=== PATIENT | female | born 1990 | race Caucasian/White ===

== ENCOUNTER → 2022-05-09 | Outpatient (CLI) | payer SELFPAY ==
[2022-05-13 21:07] LABS: Chlamydia By Nucleic Acid AMP Negative (Negative)
[2022-05-13 22:25] LABS: Gonococcus By Nucleic Acid AMP Negative (Negative)
[2022-05-16 15:30] LABS: HPV APTIMA, High Risk Negative (Negative)
== END | disposition home or self-care (01) ==
LOC: LABSPEC 15:26
PROVIDERS: Referring Provider Obstetrics & Gynecology; Visit Provider Obstetrics & Gynecology
DX: O09.90 Supervision of high risk pregnancy, unspecified, unspecified trimester (principal); Z3A.00 Weeks of gestation of pregnancy not specified
CPT/HCPCS: 87086; 87491; 87591; 87624; 88175; G0145

== ENCOUNTER → 2022-05-24 | Outpatient (CLI) | payer SELFPAY ==
[2022-05-24 09:46] LABS: Absolute Lymphocyte Count 1.91 X10^3/uL (0.83-4.51); Absolute Neutrophil Count 6.5 X10^3/uL (2.0-7.7); Basophil# 0.04 X10^3/uL; Basophil% 0.4 % (0-1); Eosinophil# 0.16 X10^3/uL; Eosinophils% 1.7 % (0-5); Hemoglobin 11.8 g/dL (12.0-15.0); Lymphocyte # 1.91 X10^3/ul (0.83-4.51); Lymphocyte % 20.5 % (19-41); Mean Corp Hgb Conc 33.7 g/dL (32-36); Mean Corpuscular Hgb 30.1 pg (27.0-32.0); Mean Corpuscular Volume 89.3 fL (81-99); Mean Platelet Vol. 9.8 fl (6.2-12.0); Monocyte% 7.5 % (0-10); NRBC Flagged by Analyzer 0 % (0-5); Neutrophil # 6.47 X10^3/uL (2.7-7.7); Neutrophil % 69.5 % (47-70); Platelet Count 200 K/mm3 (150-450); RBC Distribution Width CV 12.3 % (11.6-14.6); RBC Distribution Width SD 40.6 fl (35.1-43.9); Red Blood Count 3.92 M/mm3 (4.2-5.4); White Blood Count 9.3 K/mm3 (4.4-11.0)
[2022-05-24 10:30] LABS: NATERA MAILED SPECIMEN
[2022-05-24 12:35] LABS: HIV - WCH Non-Reactive (Nonreactive); Hepatitis B Surface Antigen Non-Reactive (Nonreactive); Hepatitis C Antibody Non-Reactive (Nonreactive); Rubella IgG Reactive (Nonreactive); Syphilis Antibodies Non-reactive
== END | disposition home or self-care (01) ==
PROVIDERS: Referring Provider Obstetrics & Gynecology; Visit Provider Obstetrics & Gynecology
DX: Z31.5 Encounter for procreative genetic counseling (principal); O09.90 Supervision of high risk pregnancy, unspecified, unspecified trimester; Z3A.00 Weeks of gestation of pregnancy not specified
CPT/HCPCS: 36415; 85025; 86703; 86762; 86780; 86803; 86850; 86900; 86901; 87340

== ENCOUNTER → 2022-09-27 | Outpatient (CLI) | payer SELFPAY ==
[2022-09-27 09:24] LABS: Absolute Lymphocyte Count 1.89 X10^3/uL (0.83-4.51); Absolute Neutrophil Count 9.1 X10^3/uL (2.0-7.7); Basophil# 0.05 X10^3/uL; Basophil% 0.4 % (0-1); Eosinophil# 0.17 X10^3/uL; Eosinophils% 1.4 % (0-5); Hematocrit 32.4 % (37-47); Hemoglobin 10.6 g/dL (12.0-15.0); Lymphocyte # 1.89 X10^3/ul (0.83-4.51); Lymphocyte % 15.4 % (19-41); Mean Corp Hgb Conc 32.7 g/dL (32-36); Mean Corpuscular Hgb 30.6 pg (27.0-32.0); Mean Corpuscular Volume 93.6 fL (81-99); Mean Platelet Vol. 9.5 fl (6.2-12.0); Monocyte# 0.94 X10^3/uL; Monocyte% 7.6 % (0-10); NRBC Flagged by Analyzer 0 % (0-5); Neutrophil # 9.11 X10^3/uL (2.7-7.7); Neutrophil % 74.1 % (47-70); Platelet Count 212 K/mm3 (150-450); RBC Distribution Width CV 12.4 % (11.6-14.6); RBC Distribution Width SD 42.5 fl (35.1-43.9); Red Blood Count 3.46 M/mm3 (4.2-5.4); White Blood Count 12.3 K/mm3 (4.4-11.0)
[2022-09-27 09:48] LABS: Glucose Challenge Gest 1H 50g 79 mg/dL (70-140)
[2022-09-27 10:21] LABS: HIV - WCH Non-Reactive (Nonreactive); Syphilis Antibodies Non-reactive
== END | disposition home or self-care (01) ==
LOC: PAVLAB 09:10
PROVIDERS: Registered Nurse; Visit Provider Obstetrics & Gynecology
DX: O09.90 Supervision of high risk pregnancy, unspecified, unspecified trimester (principal); Z3A.00 Weeks of gestation of pregnancy not specified; Z13.1 Encounter for screening for diabetes mellitus
CPT/HCPCS: 36415; 82950; 85025; 86703; 86780

== ENCOUNTER → 2022-10-25 | Outpatient (CLI) | payer SELFPAY ==
[2022-10-25 09:32] LABS: Absolute Lymphocyte Count 2.18 X10^3/uL (0.83-4.51); Absolute Neutrophil Count 9.2 X10^3/uL (2.0-7.7); Basophil# 0.07 X10^3/uL; Basophil% 0.5 % (0-1); Eosinophil# 0.24 X10^3/uL; Eosinophils% 1.8 % (0-5); Hematocrit 35.7 % (37-47); Hemoglobin 11.7 g/dL (12.0-15.0); Lymphocyte # 2.18 X10^3/ul (0.83-4.51); Lymphocyte % 16.7 % (19-41); Mean Corp Hgb Conc 32.8 g/dL (32-36); Mean Corpuscular Hgb 30.6 pg (27.0-32.0); Mean Corpuscular Volume 93.5 fL (81-99); Mean Platelet Vol. 9.1 fl (6.2-12.0); Monocyte# 1.14 X10^3/uL; Monocyte% 8.7 % (0-10); NRBC Flagged by Analyzer 0 % (0-5); Neutrophil # 9.23 X10^3/uL (2.7-7.7); Neutrophil % 70.8 % (47-70); Platelet Count 209 K/mm3 (150-450); RBC Distribution Width CV 12.4 % (11.6-14.6); RBC Distribution Width SD 42.2 fl (35.1-43.9); Red Blood Count 3.82 M/mm3 (4.2-5.4); White Blood Count 13.1 K/mm3 (4.4-11.0)
== END | disposition home or self-care (01) ==
LOC: PAVLAB 09:21
PROVIDERS: Referring Provider Registered Nurse; Visit Provider Registered Nurse
DX: O99.019 Anemia complicating pregnancy, unspecified trimester (principal); Z3A.00 Weeks of gestation of pregnancy not specified
CPT/HCPCS: 36415; 85025

== ENCOUNTER → 2022-11-22 | Outpatient (CLI) | payer SELFPAY | END | disposition home or self-care (01) | LOC: LABSPEC 11:54 | PROVIDERS: Referring Provider Obstetrics & Gynecology; Visit Provider Obstetrics & Gynecology | DX: O09.90 Supervision of high risk pregnancy, unspecified, unspecified trimester (principal); Z3A.00 Weeks of gestation of pregnancy not specified | CPT/HCPCS: 87081 ==

== ENCOUNTER 2022-12-14 23:05 | Outpatient (CLI) | payer SELFPAY ==
[2022-12-14 23:19] VITALS: BMI 33.1
[2022-12-15 00:18] LABS: ROM Internal Control Test YES-OK TO RESULT pt. (Internal QC); ROM Patient Test Negative (Negative); Record Kit Lot#, ROM+ K1409
--- NOTE | 2022-12-15 00:38 | NURSING ---
SAULO Garcia called regarding this triage patient. Discussed SVE. Pt ROM negative, contractions every 4 minutes, pt reports no pain and palpate mild. Plan is to discharge at this time.
--- NOTE | 2022-12-15 06:31 | OB.TRI.PN ---
Progress Notes Date of Service: 12/14/22 Progress Note: Patient presents for triage evaluation secondary to vaginal discharge FHT: 125 Moderate variability reactive no decelerations category I tracing [place]: irregular Contractions Assessment and plan: negative ROM, Reactive NST, reassuring maternal and status patient discharged to home to follow-up in office or sooner if contractions become more regular or ROM. See problem list details for additional plan information. Laboratory Studies: Laboratory Tests 12/14/22 Range/Units 23:30 Vag Amniotic Fld Detect Negative (Negative) Charges/Coding Multi Select Codes Urinary/Genital Urinary/Genital CPT Codes: 46407-09 non-stress test Interp Assessment & Plan (1) Vaginal discharge during : COMMENT: ROM neg. D/C home (2) Anemia affecting : COMMENT: started on iron supplement. repeat at 32 weeks(improved to 11.7) (3) Supervision of high risk , antepartum: COMMENT: PRR PETER 12/17/22 girl (secret name)Spouse: Edward GBS neg (4) : QUALIFIERS: Weeks of gestation: 39 weeks Qualified Code(s): Z3A.39 - 39 weeks gestation of COMMENT: GBS Negative, NIPT low risk, carrier neg. 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 FOB to be tested, nl anatomy
== END 2022-12-15 00:29 | disposition home or self-care (01) ==
LOC: WPOUT 23:07 → WP 23:08
PROVIDERS: Referring Provider Advanced Practice Midwife; Visit Provider Advanced Practice Midwife
DX: O99.891 Other specified diseases and conditions complicating pregnancy (principal); N89.8 Other specified noninflammatory disorders of vagina; O99.013 Anemia complicating pregnancy, third trimester; Z3A.39 39 weeks gestation of pregnancy
CPT/HCPCS: 59025; 59050; 84112; 99221; G0378

== ENCOUNTER 2022-12-15 05:05 | Inpatient (IN) | payer SELFPAY ==
[2022-12-15] VITALS (72 sets, daily range): BP systolic 91–161; BP diastolic 53–94; PULSE 75–169; RESP 16; TEMP 36.2–37.6; O2SAT 96–100; BMI 32.9
[2022-12-15 04:50] LABS: ROM Internal Control Test YES-OK TO RESULT pt. (Internal QC)
[2022-12-15 04:53] LABS: ROM Patient Test POSITIVE (Negative); Record Kit Lot#, ROM+ K1409
[2022-12-15 05:39] LABS: Absolute Lymphocyte Count 2.56 X10^3/uL (0.83-4.51); Absolute Neutrophil Count 9.8 X10^3/uL (2.0-7.7); Basophil# 0.05 X10^3/uL; Basophil% 0.4 % (0-1); Eosinophil# 0.13 X10^3/uL; Eosinophils% 0.9 % (0-5); Hematocrit 33.8 % (37-47); Hemoglobin 11.2 g/dL (12.0-15.0); Lymphocyte # 2.56 X10^3/ul (0.83-4.51); Lymphocyte % 18.7 % (19-41); Mean Corp Hgb Conc 33.1 g/dL (32-36); Mean Corpuscular Hgb 30.6 pg (27.0-32.0); Mean Corpuscular Volume 92.3 fL (81-99); Mean Platelet Vol. 10.2 fl (6.2-12.0); NRBC Flagged by Analyzer 0 % (0-5); Neutrophil # 9.77 X10^3/uL (2.7-7.7); Neutrophil % 71.3 % (47-70); Platelet Count 192 K/mm3 (150-450); RBC Distribution Width CV 12.3 % (11.6-14.6); RBC Distribution Width SD 42.5 fl (35.1-43.9); Red Blood Count 3.66 M/mm3 (4.2-5.4); White Blood Count 13.7 K/mm3 (4.4-11.0)
[2022-12-15 06:12] LABS: Syphilis Antibodies Non-reactive
--- NOTE | 2022-12-15 06:34 | HP.PCM.OB_ITS ---
HPI - General General Date of Admission: 12/15/22 Date of Service: 12/15/22 HPI Narrative LINDSEY MCKEON, is a 32 F 39.5 weeks who presents with SROM at 0115. Contractions becoming stronger and more regular. Maternal Data Information PETER Calculator Estimated Delivery Date Method Current WG Current Estimate 12/17/22 LMP (Certain) 39w 5d Other Estimates 12/13/22 Ultrasound #1 40w 2d Final PETER: 12/17/22 Final PETER Source: US >20 weeks Gestational age: 39.5 PFSH PFSH Home Medications prenat.vits,rodríguez,qir-itwm-ryode 1 tab PO DAILY 05/03/22 [History Last Taken 12/13/22] vitamin E 100 unit/0.25 mL oral drops unit PO .once day 12/15/22 [History Last Taken Unknown] Allergy/AdvReac Type Severity Reaction Status Date / Time No Known Allergies Allergy Verified 12/15/22 05:21 Family History Father Extra digits Mother Seizures Grandfather Cancer prostate Surgical History History of adenoidectomy Social History household members: spouse housing: house current occupational status: employed 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 current occupational exposures/hazards: No pets and animals: No history of recent travel: No sexually active: Yes Smoking Status: Former smoker alcohol intake: never substance use type: does not use well-balanced diet: daily or most days caffeine: No eating out: rarely or never seatbelt use: always do you feel safe at home: Yes additional social history: Spouse: Edward History 1 Elective abortions Hx Para 0 Spontaneous abortions Hx # Term Pregnancies Ectopic pregnancies Hx # Pregnancies Multiple births # of living children Visit Details Expected Delivery Route/Plan delivery by 41 weeks Labor Preferences- CB/BF classes: Discussed and did labor support person: Edward labor intervention preferences: min interventions hydrotherapy, open to touch and massage, guided breathing pain management options preferred: prefers no epidural but open if medically necessary cut cord/dad catch: yes cord only : Yes PP control planned: [] discussed possible routes of delivery and associated risks: [] special requests: [] Plans Covid status: declines Flu vaccine: declines Tdap vaccine: declines Rhogam: NA LARC form signed: completed movement and labor precautions reviewed. Problem list reviewed and updated with the most current plan of care details and appropriate orders placed. Relevant counseling for the gestational age provided. Continue routine care and follow up unless otherwise noted in visit notes/problem list details OB Flowsheet Initial Weight: Not Recorded Date -?-?-?-?-?-?-?-?-?-?-?-?- EGA Weight BP Urine Prot -?-?-?-?-?-?-?-?-?-?-?-?- Glucose FHR FuHt Pres Dilation -?-?-?-?-?-?-?-?-?-?-?-?- Effaced St Visit Note 05/09/22 -?-?-?-?-?-?-?-?-?-?-?-?- 8w 2d 147 lb 4 oz 108/60 -?-?-?-?-?-?-?-?-?-?-?-?- 180 -?-?-?-?-?-?-?-?-?-?-?-?- JV- single live IUP measuring 8 weeks 6 days and consistent with LMP. Pt desires NIPT and carrier test. she is ex-jehovah's witness and worried about genetic pro blems. 06/07/22 -?-?-?-?-?-?-?-?-?-?-?-?- 12w 3d 150 lb 8 oz 94/55 Nega tive -?-?-?-?-?-?-?-?-?-?-?-?- Negative 175 -?-?-?-?-?-?-?-?-?-?-?-?- KW- Denies cramp ing. 07/05/22 -?-?-?-?-?-?-?-?-?-?-?-?- 16w 3d 158 lb 96/63 Negative -?-?-?-?-?-?-?-?-?-?-?-?- Negative 157 -?-?-?-?-?-?-?-?-?-?-?-?- JV- no lof, vagi nal bleeding, or cramping. Still working out but scaling back on weight.s anatomy us scheduled for 07/2508/02/22 -?-?-?-?-?-?-?-?-?-?--?-?- 20w 3d 159 lb 6 oz 100/59 Nega tive -?-?-?-?-?-?-?-?-?-?-?-?- Negative 149 -?-?-?-?-?-?-?-?-?-?-?-?- JV- + fm. no scratch brusher mping or spotting. normal anatomy scan. 08/30/22 -?-?-?-?-?-?-?-?-?-?-?-?- 24w 3d 164 lb 6 oz 103/59 Nega tive -?-?-?-?-?-?-?-?-?-?-?-?- Negative 140 24 -?-?-?-?-?-?-?-?-?-?-?-?- LC- no lof/vb/ct x. good fm. 28 week labs ordered. 09/27/22 -?-?-?-?-?-?-?-?-?-?-?-?- 28w 3d 170 lb 4 oz 96/68 Nega tive -?-?-?-?-?-?-?-?-?-?-?-?- Negative 138 28 -?-?-?-?-?-?-?-?-?-?-?-?- LC-no lof/ctx/vb . good fm. larc signed. declines tdap. 10/11/22 -?-?-?-?-?-?-?-?-?-?-?-?- 30w 3d 172 lb 108/61 Negative -?-?-?-?-?-?-?-?-?-?-?-?- Negative 140 30 Cephalic -?-?-?-?-?-?-?-?-?-?-?-?- SM- no vb lof go od fm no regular ctx 10/25/22 -?-?-?-?-?-?-?-?-?-?-?-?- 32w 3d 173 lb 105/67 Negative -?-?-?-?-?-?-?-?-?-?-?-?- Negative 134 32 -?-?-?-?-?-?-?-?-?-?--?-?- LC- no vb/ctx/vb . good fm. obtaining cbc today, on iron supplementation. signing up for CBE classes. 11/08/22 -?-?-?-?-?-?-?-?-?-?-?-?- 34w 3d 176 lb 108/64 Negative -?-?-?-?-?-?-?-?-?-?-?-?- Negative 138 34 -?-?-?-?-?-?-?-?-?-?-?-?- LC- no vb/ctx/lo f. good fm. labor precautions reviewed. 11/22/22 -?-?-?-?-?-?-?-?-?-?-?-?- 36w 3d 178 lb 6 oz 102/62 Nega tive -?-?-?-?-?-?-?-?-?-?-?-?- Negative 140 36 Cephalic 1 -?-?-?-?-?-?-?-?-?-?-?-?- 50 -3 JV- no lof , vaginal bleeding, or dec fm. gbs collected. labor precautions discussed. 11/29/22 -?-?-?-?-?-?-?-?-?-?-?-?- 37w 3d 182 lb 6 oz 102/62 Nega tive -?-?-?-?-?-?-?-?-?-?-?-?- Negative 135 36 Cephalic -?-?-?-?-?-?-?-?-?-?-?-?- SM- no vb lof go od fm no regular ctx discussed preferences 12/06/22 -?-?-?-?-?-?-?-?-?-?-?-?- 38w 3d 184 lb 2 oz 100/62 Nega tive -?-?-?-?-?-?-?-?-?-?-?-?- Negative 140 38 Cephalic 2 -?-?-?-?-?-?-?-?-?-?-?-?- 60 -2 kw-no vb/l of/regular ctx. good fm. labor precautions. 12/12/22 -?-?-?-?-?-?-?-?-?-?-?-?- 39w 2d 186 lb 4 oz 90/62 Nega tive -?-?-?-?-?-?-?-?-?-?-?-?- Negative 125 39 Cephalic 1 .5 -?-?-?-?-?-?-?-?-?-?-?-?- 70 -1 Sm- no vb lof good fm n oregular ctx NST FHR Rate Baby B Baseline: 145 Variability:: Moderate Accelerations:: 15 x 15 Decelerations:: None NST Reactive:: Yes FHR Category:: Category I Uterine Activity:: 4-6 minutes ROS Constitutional Constitutional: Denies change in weight, fatigue, fever(s), headache(s), poor appetite or weakness Eyes Eyes: Denies blurry vision, change in vision, floaters, seeing flashes or spots in vision ENT HEENT: Denies dizziness, headache(s), loss taste/smell or sore throat Cardiovascular Cardiovascular: Denies chest pain, dizziness, dyspnea, irregular heart rhythm, lightheadedness, palpitations or rapid heart rate Respiratory/Chest Respiratory/Chest: Denies change in mental status, chest tightness, cough, dyspnea or breast pain Gastrointestinal Gastrointestinal: Denies anorexia, chewing difficulty, constipation, diarrhea or weight changes Genitourinary Genitourinary: Denies difficulty urinating, dysuria, flank pain, genital pain, urinary frequency or urinary urgency Musculoskeletal Musculoskeletal: Denies back pain, difficulty walking, extremity pain, joint pain, muscle cramps or muscle weakness Integumentary Integumentary: Denies lesions or unusual bruising Neurologic Neurologic: Denies abnormal movements, abnormal speech, dizziness, numbness, seizure-like activity, syncope or weakness Psychiatric Psychiatric: Denies behavioral changes, change in appetite, confusion, depression, homicidal ideation, suicidal ideation or suicidal thoughts Endocrine Endocrinology: Denies excessive sweating, polydipsia or polyuria Hematologic/Lymphatic Hematologic/Lymphatic: Denies anemia Allergic/Immunologic Allergic/Immunologic: Denies itchy eyes, lip swelling, throat swelling, tongue swelling or wheezing Vital Signs Vital Signs Vital Signs: 12/15/22 04:31 12/15/22 04:31 12/15/22 06:15 Temperature 97.1 F L Temperature Source Temporal Pulse Rate Blood Pressure 113/68 BP Systolic 113 BP Diastolic 68 Pulse Ox 12/15/22 06:15 12/15/22 06:15 12/15/22 06:15 Temperature 98.2 F Temperature Source Pulse Rate 93 Blood Pressure BP Systolic BP Diastolic Pulse Ox 100 Weight Weight: 186 lb Body Mass Index (BMI) 32.9 Physical Exam Const alert, oriented x3 and no apparent distress General Appearance: cooperative Orientation / Consciousness: awake HEENT normocephalic Neck full ROM Lymph Lymphatic: no lymphadenopathy noted Chest inspection of chest normal Resp normal respiratory effort and normal air movement Effort and Inspection: able to speak in complete sentences and symmetric chest movement GI soft to palpation and non-tender Inspection: gravid Palpation: soft; Negative for tender external exam normal Manual OB Exam: estimated gestational size appropriate and presentation cephalic Back/Spine normal to inspection Extremity normal to inspection and full ROM Skin no rashes or lesions noted Psych mental status grossly normal Appearance: grossly normal Speech: normal speech Labs Labs Labs: Blood Type A POSITIVE Antibody Screen NEGATIVE Hct 33.8 % (37-47) L Hgb 11.2 g/dL (12.0-15.0) L Syphilis Total Ab Non-reactive Rubella IgG Antibody Reactive (Nonreactive) Hep Bs Antigen Non-Reactive (Nonreactive) Hepatitis C Antibody Non-Reactive (Nonreactive) Chlamydia DNA ([place]) Negative (Negative) N.gonorrhoeae DNA ([place]) Negative (Negative) HIV 1&2 Antibody Non-Reactive (Nonreactive) Glucose 1 Hr 50 gm 79 mg/dL (70-140) Assessment & Plan (1) Rupture of membranes with clear amniotic fluid: PLAN: Patient presents IAL, plan expectant management for , pitocin/AROM PRN if needed. Pain management: plans no epidural. GBS negative. Management of any complications: none I have reviewed the [facility] and made any clinically relevant updates. (2) Anemia affecting : COMMENT: started on iron supplement. repeat at 32 weeks(improved to 11.7) (3) Supervision of high risk , antepartum: COMMENT: PRR PETER 12/17/22 girl (secret name)Spouse: Edward GBS neg (4) : QUALIFIERS: Weeks of gestation: 39 weeks Qualified Code(s): Z3A.39 - 39 weeks gestation of COMMENT: GBS Negative, NIPT low risk, carrier neg. 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 FOB to be tested, nl anatomy Charges/Coding Multi Select Codes Urinary/Genital Urinary/Genital CPT Codes: No Charge
--- NOTE | 2022-12-15 09:09 | PCM.PN.BLA ---
Progress Note coping well with contractions current tracing: FHT: 150 Moderate variability reactive no decelerations category I tracing [place]: 2-3 minute Contractions Membranes: ruptured at 115, forebag ruptured at 0900 for clear fluid SVE: /- reviewed tracing abnormalities since last note: A/P: Continue with position changes Pitocin per protocol if needed Anticipate Dr Beltre aware of plan and agrees with plan of care Assessment & Plan Assessment/Plan (1) Active labor at term: (2) Rupture of membranes with clear amniotic fluid: (3) Anemia affecting : (4) Supervision of high risk , antepartum: (5) : QUALIFIERS: Weeks of gestation: 39 weeks Qualified Code(s): Z3A.39 - 39 weeks gestation of Multi Select Codes Urinary/Genital Urinary/Genital CPT Codes: No Charge
[2022-12-15] MEDS: LACTATED RINGERS 500 ML 999 ML IV ×2 (09:42→16:39)
[2022-12-15] MEDS: Lactated Ringers 1,000 ML 200 ML IV ×2 (10:10→14:54)
[2022-12-15] MEDS: fentaNYL-bupivacaine (epidural) 100 ML BAG EPIDURAL ×2 (10:30→14:14)
--- NOTE | 2022-12-15 12:08 | PCM.PN.BLA ---
Progress Note comfortable with epidural current tracing: FHT: 145 Moderate variability reactive no decelerations category I tracing [place]: 3-4 minutes Contractions Membranes: ruptured-see previous note SVE: reviewed tracing abnormalities since last note: A/P: Continue with position changes Re check SVE exam in 2 hours and if no change start pitocin Titrate pitocin per protocol Epidural per anesthesia Anticipate Dr Beltre aware of plan and agrees with plan of care Assessment & Plan Assessment/Plan (1) Active labor at term: (2) Rupture of membranes with clear amniotic fluid: (3) Anemia affecting : (4) Supervision of high risk , antepartum: (5) : QUALIFIERS: Weeks of gestation: 39 weeks Qualified Code(s): Z3A.39 - 39 weeks gestation of Multi Select Codes Urinary/Genital Urinary/Genital CPT Codes: No Charge
[2022-12-15] MEDS: Oxytocin 15 Units/NS 250ml 15 UNITS/250 ML IV.SOLN 2 UNITS IV (14:42)
--- NOTE | 2022-12-15 14:47 | PN_ITS ---
Progress Note comfortable with epidural current tracing: FHT: 130 Moderate variability reactive no decelerations category I tracing [place]: 2-5 Contractions Membranes: ruptured SVE: 9/95/0 A/P: Continue with position changes Start and Titrate pitocin per protocol Epidural per anesthesia Anticipate Dr Beltre aware of plan and agrees with plan of care Assessment & Plan Assessment/Plan (1) Active labor at term: (2) Rupture of membranes with clear amniotic fluid: (3) Anemia affecting : (4) Supervision of high risk , antepartum: (5) : QUALIFIERS: Weeks of gestation: 39 weeks Qualified Code(s): Z3A.39 - 39 weeks gestation of Multi Select Codes Urinary/Genital Urinary/Genital CPT Codes: No Charge
--- NOTE | 2022-12-15 17:59 | PLAC_PTH ---
PATIENT: LINDSEY MCKEON LOC: [facility] U#:[id number] AGE/SX: 32/F ROOM: WP021 RE12/15/[address]: Dr. Allison Ross DO : 1990 BED: 1 DIS: 12/17/2022 SPEC #: [id number] RECD: 12/15/22 20:24 STATUS: AMAYA HAILY #: [id number] BILL: 12/15/22 17:[address]: Allison Ross DEPT: SURGICAL PATHOLOGY RECD BY: Edwige Rosas ENTERED: 12/16/22 07:31 SP TYPE: PLACENTA OTHR DR: No Primary Care Phys Tissues: Placenta, NOS Procedures: Surgery Specimen Level V HEADER OPERATION: Vaginal delivery PRE-OP DIAGNOSIS: Suspected chorioamnionitis TISSUE SUBMITTED: Placenta MICROSCOPIC DIAGNOSIS Placenta: Placental disc - third trimester placenta (515 gm). Membranes - moderate acute chorioamnionitis. Umbilical cord - three blood vessels and no pathologic diagnosis. SJ:lucie 12/18/2022 MICROSCOPIC DESCRIPTION Slides are reviewed. GROSS DESCRIPTION SPECIMEN: PLACENTA / CLINICAL INFORMATION: A. Weight: 3.42 kg B. Gestational Age: 39 weeks C. Sex: Female PLACENTAL WEIGHT (POST FIXATION): 515 gm PLACENTAL DIMENSIONS: 20.0 x 16.0 x 3.0 cm PLACENTAL SHAPE: Usual ovoid PLACENTAL WEIGHT FOR GESTATIONAL AGE: Within 10-99th percentile MEMBRANES - Present A. Insertion: Marginal B. Site of rupture from edge: At margin of placental disc C. Color of membrane: Ramires, mucoidy D. Abnormalities: A detached fragment of membrane is also present in the container. A few blood clots are also note din the membranes. UMBILICAL CORD - Present A. Color: Ramires-soriano B. Insertion: Central C. Length: 31.0 cm D. Diameter: 1.1 cm. The umbilical cord is focally edematous towards the end and measures up to 1.6 cm in diameter. E. Number of vessels: Three F. Abnormalities: None PLACENTAL DISC - Present A. Color of surface: Ramires-soriano B. surface abnormalities: None C. Maternal cotyledons: Intact with minimal tears D. Attached retro placental clot: No clot E. Cut surface: Dark red and spongy F. Lesions: None G. Separate clot: Multiple blood clots are noted weighing 38 gm and measuring in aggregate 8.0 x 7.0 x 2.5 cm. SECTIONS SUBMITTED: 1. Membrane roll 2. Cord, maternal end 3. Cord, end 4. Placental disc, and maternal surfaces 5. Placental disc, and maternal surfaces 6. Placental disc, and maternal surfaces BRAN:lucie 12/17/2022 TC:2 CPT: 53149
--- NOTE | 2022-12-15 18:19 | PCM.PN.OB ---
Objective Data Objective Data Vital Signs: Vital Signs Temp Pulse BP Pulse Ox 99.7 F H 88 104/55 L 98 12/15/22 17:27 12/15/22 17:28 12/15/22 17:28 12/15/22 16:35 Weight: 186 lb Body Mass Index (BMI) 32.9 Intake & Output: Intake and Output for Last 24 Hours 12/13/22 12/14/22 12/15/22 23:59 23:59 23:59 Intake Total 2292.83 / 2292.83 Output Total 600 / 600 Balance 1692.83 / 1692.83 Lab / Micro Data 12/15/22 05:20 Labs: Laboratory Results - last 24 hr 12/15/22 04:28: Vag Amniotic Fld Detect POSITIVE H 12/15/22 05:20: WBC 13.7 H, RBC 3.66 L, Hgb 11.2 L, Hct 33.8 L, MCV 92.3, MCH 30.6, MCHC 33.1, RDW Std Deviation 42.5, RDW Coeff of Pedro 12.3, Plt Count 192, MPV 10.2, Immature Gran % (Auto) 0.700, Neut % (Auto) 71.3 H, Lymph % (Auto) 18.7 L, [place] % (Auto) 8.0, Eos % (Auto) 0.9, Baso % (Auto) 0.4, Absolute Neuts (auto) 9.8 H, Absolute Lymphs (auto) 2.56, Nucleated RBC % 0, Syphilis Total Ab Non-reactive, Blood Type A POSITIVE, Antibody Screen NEGATIVE
--- NOTE | 2022-12-15 18:20 | PCM.PN.BLA ---
Progress Note comfortable with epidural current tracing: FHT: Moderate variability reactive no decelerations category I tracing [place]: [] Contractions Membranes: SVE:10/100/+2- pushing at 1617 reviewed tracing abnormalities since last note: at 1655 variables after pushing and 1717 dr Beltre noted of decels, pitocin turned off and O2 on. She is on her way hospital to assess for kiwi delivery A/P: Continue with position changes Titrate pitocin per protocol Epidural per anesthesia Anticipate Dr Beltre aware of plan and agrees with plan of care Assessment & Plan Assessment/Plan (1) Active labor at term: (2) Rupture of membranes with clear amniotic fluid: (3) Anemia affecting : (4) Supervision of high risk , antepartum: (5) : QUALIFIERS: Weeks of gestation: 39 weeks Qualified Code(s): Z3A.39 - 39 weeks gestation of Multi Select Codes Urinary/Genital Urinary/Genital CPT Codes: No Charge
--- NOTE | 2022-12-15 18:27 | EX.PCM.OBRPT ---
Assessment & Plan (1) Active labor at term: (2) Rupture of membranes with clear amniotic fluid: (3) Anemia affecting : COMMENT: started on iron supplement. repeat at 32 weeks(improved to 11.7) (4) Supervision of high risk , antepartum: COMMENT: PRR PETER 12/17/22 girl (secret name)Spouse: Edward GBS neg (5) : QUALIFIERS: Weeks of gestation: 39 weeks Qualified Code(s): Z3A.39 - 39 weeks gestation of COMMENT: GBS Negative, NIPT low risk, carrier neg. 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 FOB to be tested, nl anatomy Maternal Data Information PETER Calculator Estimated Delivery Date Method Current WG Current Estimate 12/17/22 LMP (Certain) 39w 5d Other Estimates 12/13/22 Ultrasound #1 40w 2d Final PETER: 12/17/22 Final PETER Source: LMP Vaginal Delivery Maternal Presentation Maternal Presentation: Active Labor Type of Induction: Pitocin Operative Information Date of Procedure: 12/15/22 Pre-Operative Diagnosis: 32 y/o @ 39 weeks 6 days, active labor with SROM, protracted labor, tachycardia, variable decelerations with minimal variability Post-Operative Diagnosis: 32 y/o @ 39 weeks 6 days, active labor with SROM, protracted labor, tachycardia, variable decelerations with minimal variability Surgery / Procedure Performed: Vacuum Assisted Vaginal Delivery Type of Anesthesia: Epidural Drain: Parsons to straight drain Estimated Blood Loss: 200cc Findings Description of Procedure: Findings: Viable female infant, scores 8/9 . Weight pending Details of delivery: This is a 32 y/o year old woman who was admitted to labor and delivery for active labor and stalled out at 6 cm for 7 hours until she made change to 7 cm. An epidural was given at that time and progressed to complete 3 hours later. She began pushing and after 30 minutes the heart rate showed tachycardia with minimal variability and persistent deep variable decelerations. Pitocin was stopped, she was given an IV fluid bolus and oxygen. The variable decelerations resolved, however the tachycardia remained the in the 170's, and maternal heart rate and temp were noted to be increasing. (temp 99.7) . The decision was made to perform a vacuum extraction due to persistent tachycardia and poor pushing effort. The risk benefits and alternatives of the procedure were discussed with the patient and verbal consent was obtained. The infant was noted to be at a +2 station, the cervix was completely dilated. The 's head was noted to be in the right occiput anterior presentation. The vacuum was placed in the correct placement in front of the posterior fontanelle. This was confirmed digitally. With the patient's next contraction, the vacuum was inflated and a gentle downward pressure was used to assist with bringing the baby's head to a +3 station. 5 pulls total were needed along with a right mediolateral episiotomy to achieve delivery. There were 2 pop offs on the 3rd and 4th pulls . The head was delivered atraumatically. No nuchal cord was noted. . The anterior shoulder followed by the posterior shoulder were delivered without difficulty. The infant was handed off to the patient's chest. The was found to be vigorous and crying and moving of all 4 extremities. The mouth and nares were bulb suctioned. After 60 second delay the cord was clamped and cut and the infant was handed off to the awaiting nurses for routine assessment. The placenta was delivered with gentle traction and uterine massage. Inspection of the vagina cervix and perineum was performed. There were no lacerations to the vagina or to the cervix. The peritoneum was found to have a 2nd degree perineal laceration. The perineal laceration was closed using a 2-0 Vicryl in the usual sterile fashion. The patient tolerated the procedure well sponge lap and needle counts were correct x2 and she is now recovering in stable condition. Presentation: Vertex Amniotic Fluid Description: Clear Placental Delivery Description: Spontaneous Placenta Disposition: Routine to Lab Specimen(s) Removed: placenta - sent for culture Cord Vessel Description: 3 Vessels Cord Entanglement: None Cord Gases: ABG and VBG A Gender: Female (1 minute): 8 (5 minute): 9 Delayed Cord Clamping: Yes Post Vaginal Delivery Medications Given After Delivery: IV Pitocin Episiotomy Description: Right Mediolateral Laceration: 2nd degree Complication Complications: None Multi Select Codes Urinary/Genital Urinary/Genital CPT Codes: 17039 Vaginal Delivery [facility]
[2022-12-15] MEDS: Oxytocin 15 Units/NS 250ml 15 UNITS/250 ML IV.SOLN 83 UNITS IV (18:37)
--- NOTE | 2022-12-15 18:42 | DCINST_ITS ---
Discharge Instructions Diet Discharge Diet: No restrictions Activity Discharge Activity: Return to Normal Activity, May Not Drive (while taking narcotic pain medications.) and May Shower May resume sexual activity in: 4-6 weeks Dressing / Incision Call your doctor if your incision/area has: Continuous Slow Oozing, Sudden Increased Bleeding, Increased Pain/ Swelling, Increased Redness and Foul Smelling Discharge Follow Up Care Please Follow Up With: Allison Ross, DO When: Call [phone] to make an appointment with your doctor in 6 weeks. If you had elevated blood pressure or 4th degree laceration, you will need to be seen in 2 weeks. Test Results: Test results from this visit will be discussed in further detail at your follow- up appointment, if applicable. Discharge Plan Admission Admit Date/Time: 12/15/22 05:05 Attending Provider: Allison Ross Primary Care Provider: Sarwat Brooks,Kathy Primary Discharge Orders/Prescriptions Prescriptions: No Action prenat.vits,rodríguez,mcs-umqt-efpgi Tablet 1 tab PO DAILY vitamin E 100 unit/0.25 mL drops PO .once day Referrals / Follow Up: Care Physician,No Primary [Primary Care Provider] -
[2022-12-15] MEDS: Cefazolin 2 GM in 0.9% Normal Saline (100mL Bag) 100 ML IV (19:04)
[2022-12-15 20:17] LABS: Absolute Lymphocyte Count 1.07 X10^3/uL (0.83-4.51); Absolute Neutrophil Count 19.5 X10^3/uL (2.0-7.7); Basophil# 0.04 X10^3/uL; Basophil% 0.2 % (0-1); Hematocrit 31.6 % (37-47); Hemoglobin 10.4 g/dL (12.0-15.0); Lymphocyte # 1.07 X10^3/ul (0.83-4.51); Lymphocyte % 4.8 % (19-41); Mean Corp Hgb Conc 32.9 g/dL (32-36); Mean Corpuscular Hgb 30.5 pg (27.0-32.0); Mean Corpuscular Volume 92.7 fL (81-99); Mean Platelet Vol. 10.8 fl (6.2-12.0); Monocyte# 1.51 X10^3/uL; Monocyte% 6.8 % (0-10); NRBC Flagged by Analyzer 0 % (0-5); Neutrophil # 19.49 X10^3/uL (2.7-7.7); Neutrophil % 87.3 % (47-70); POSITIVE DIFFERENTIAL YES; Platelet Count 152 K/mm3 (150-450); RBC Distribution Width CV 12.5 % (11.6-14.6); RBC Distribution Width SD 42.4 fl (35.1-43.9); Red Blood Count 3.41 M/mm3 (4.2-5.4); White Blood Count 22.3 K/mm3 (4.4-11.0)
[2022-12-15 20:36] LABS: Differential Indicated SCAN CRITERIA MET
[2022-12-15 20:37] LABS: Differential Comment SCANNED
[2022-12-15] MEDS: Ibuprofen 600 MG Tablet PO (23:24)
[2022-12-15] MEDS: Senna/Docusate Sodium 1 Tablet PO (23:25)
[2022-12-16] VITALS (11 sets, daily range): BP systolic 98–109; BP diastolic 55–65; PULSE 74–86; RESP 16–18; TEMP 36.4–36.9; O2SAT 97–100
[2022-12-16 03:37] LABS: Pathology Specimen OB SEE PATHOLOGY REPORT
[2022-12-16 05:37] LABS: Absolute Lymphocyte Count 2.74 X10^3/uL (0.83-4.51); Absolute Neutrophil Count 22.8 X10^3/uL (2.0-7.7); Basophil# 0.07 X10^3/uL; Basophil% 0.3 % (0-1); Eosinophil# 0.02 X10^3/uL; Eosinophils% 0.1 % (0-5); Hematocrit 32.4 % (37-47); Hemoglobin 10.6 g/dL (12.0-15.0); Lymphocyte # 2.74 X10^3/ul (0.83-4.51); Lymphocyte % 9.8 % (19-41); Mean Corp Hgb Conc 32.7 g/dL (32-36); Mean Corpuscular Hgb 30.5 pg (27.0-32.0); Mean Corpuscular Volume 93.4 fL (81-99); Mean Platelet Vol. 10.3 fl (6.2-12.0); Monocyte# 2.02 X10^3/uL; Monocyte% 7.3 % (0-10); NRBC Flagged by Analyzer 0 % (0-5); Neutrophil # 22.78 X10^3/uL (2.7-7.7); Neutrophil % 81.7 % (47-70); POSITIVE DIFFERENTIAL YES; Platelet Count 160 K/mm3 (150-450); RBC Distribution Width CV 12.8 % (11.6-14.6); RBC Distribution Width SD 43.2 fl (35.1-43.9); Red Blood Count 3.47 M/mm3 (4.2-5.4); White Blood Count 27.9 K/mm3 (4.4-11.0)
[2022-12-16 05:38] LABS: Differential Indicated SCAN CRITERIA MET
[2022-12-16] MEDS: Ibuprofen 600 MG Tablet PO ×2 (06:39→13:52)
--- NOTE | 2022-12-16 08:58 | PCM.PN.OB ---
Subjective Subjective Patient doing well without complaints. Tolerating PO. Ambulating and voiding without difficulty. Feeding well. Denies chest pain, shortness of breath, calf pain/swelling, fevers, chills, lightheadedness. Objective Data Objective Data Vital Signs: Vital Signs Temp Pulse Resp BP Pulse Ox O2 Del Method 98.1 F 85 16 106/58 L 97 Room Air 12/16/22 08:03 12/16/22 08:03 12/16/22 08:03 12/16/22 08:03 12/16/22 04:15 12/16/22 08:03 Oxygen Delivery Method Room Air Weight: 186 lb Body Mass Index (BMI) 32.9 Intake & Output: Intake and Output for Last 24 Hours 12/14/22 12/15/22 12/16/22 23:59 23:59 23:59 Intake Total 3002.93 / 3002.93 Output Total 1450 / 1450 500 / 500 Balance 1552.93 / 1552.93 -500 / -500 Lab / Micro Data 12/16/22 05:26 Labs: Laboratory Results - last 24 hr 12/15/22 19:00: WBC 22.3 H, RBC 3.41 L, Hgb 10.4 L, Hct 31.6 L, MCV 92.7, MCH 30.5, MCHC 32.9, RDW Std Deviation 42.4, RDW Coeff of Pedro 12.5, Plt Count 152, MPV 10.8, Immature Gran % (Auto) 0.900, Neut % (Auto) 87.3 H, Lymph % (Auto) 4.8 L, [place] % (Auto) 6.8, Eos % (Auto) 0.0, Baso % (Auto) 0.2, Absolute Neuts (auto) 19.5 H, Absolute Lymphs (auto) 1.07, Nucleated RBC % 0, Differential Comment SCANNED, Diff Path Review July12/16/22 05:26: WBC 27.9 H, RBC 3.47 L, Hgb 10.6 L, Hct 32.4 L, MCV 93.4, MCH 30.5, MCHC 32.7, RDW Std Deviation 43.2, RDW Coeff of Pedro 12.8, Plt Count 160, MPV 10.3, Immature Gran % (Auto) 0.800, Neut % (Auto) 81.7 H, Lymph % (Auto) 9.8 L, Randolph % (Auto) 7.3, Eos % (Auto) 0.1, Baso % (Auto) 0.3, Absolute Neuts (auto) 22.8 H, Absolute Lymphs (auto) 2.74, Nucleated RBC % 0, Diff Path Review July Physical Exam Const alert and no apparent distress Neck full ROM Chest inspection of chest normal Nipple/Areola: nipples/areola normal Resp normal respiratory effort Cardio regular rate and regular rhythm GI normal to inspection, nondistended, normoactive bowel sounds Bimanual Exam - Vag & Uterus: Negative for uterus tender Uterus Palpation: uterus fundus firm Extremity normal to inspection and no calf tenderness Extremity Narrative: trace edema Skin no rashes or lesions noted Psych mental status grossly normal Assessment & Plan (1) Vacuum extractor delivery, delivered: COMMENT: JV tachycardia. Felicitas. PLAN: s/p PPD # 1 1. routine post delivery care 2. breast feeding- support given 3. rh positive 4. rubella immune (2) Maternal fever during labor: COMMENT: Triple I ancef q8 hours repeat cbc 12/17 PLAN: updated on exam and labs, plan to restart ancef x24 hours and repeat cbc in AM.
[2022-12-16] MEDS: Cefazolin 1 GM/50 ML BAG IV ×2 (10:26→16:31)
[2022-12-16] MEDS: 0.9% Saline Lock 10 ML Syringe IV (16:32)
[2022-12-16] MEDS: Acetaminophen 500 MG Tablet 1000 MG PO (20:12)
[2022-12-17] MEDS: Ibuprofen 600 MG Tablet PO (01:35)
[2022-12-17] MEDS: Cefazolin 1 GM/50 ML BAG IV ×2 (01:35→09:46)
[2022-12-17] MEDS: 0.9% Saline Lock 10 ML Syringe IV ×2 (01:39→09:47)
[2022-12-17 01:50] VITALS: BP 97/63; PULSE 74; RESP 16; TEMP 36.3
[2022-12-17 05:26] LABS: Absolute Lymphocyte Count 2.49 X10^3/uL (0.83-4.51); Absolute Neutrophil Count 11.1 X10^3/uL (2.0-7.7); Basophil# 0.07 X10^3/uL; Basophil% 0.5 % (0-1); Eosinophil# 0.27 X10^3/uL; Eosinophils% 1.8 % (0-5); Hematocrit 26.9 % (37-47); Hemoglobin 8.8 g/dL (12.0-15.0); Lymphocyte # 2.49 X10^3/ul (0.83-4.51); Lymphocyte % 16.5 % (19-41); Mean Corp Hgb Conc 32.7 g/dL (32-36); Mean Corpuscular Hgb 30.6 pg (27.0-32.0); Mean Corpuscular Volume 93.4 fL (81-99); Monocyte# 1.07 X10^3/uL; Monocyte% 7.1 % (0-10); NRBC Flagged by Analyzer 0 % (0-5); Neutrophil # 11.07 X10^3/uL (2.7-7.7); Neutrophil % 73.3 % (47-70); Platelet Count 150 K/mm3 (150-450); RBC Distribution Width CV 12.9 % (11.6-14.6); RBC Distribution Width SD 44.2 fl (35.1-43.9); Red Blood Count 2.88 M/mm3 (4.2-5.4); White Blood Count 15.1 K/mm3 (4.4-11.0)
--- NOTE | 2022-12-17 07:36 | PCM.PN.OB ---
Subjective Subjective Patient doing well without complaints. Tolerating PO. Ambulating and voiding without difficulty. Feeding well. Denies chest pain, shortness of breath, calf pain/swelling, fevers, chills, lightheadedness. Objective Data Objective Data Vital Signs: Vital Signs Temp Pulse Resp BP Pulse Ox O2 Del Method 97.3 F L 74 16 97/63 100 Room Air 12/17/22 01:50 12/17/22 01:50 12/17/22 01:50 12/17/22 01:50 12/16/22 13:39 12/16/22 20:20 Oxygen Delivery Method Room Air Weight: 186 lb Body Mass Index (BMI) 32.9 Intake & Output: Intake and Output for Last 24 Hours 12/15/22 12/16/22 12/17/22 23:59 23:59 23:59 Intake Total 3002.93 / 3002.93 100 / 100 Output Total 1450 / 1450 500 / 500 Balance 1552.93 / 1552.93 -400 / -400 Lab / Micro Data Attestation: I reviewed the patient's lab results. 12/17/22 05:13 Labs: Laboratory Results - last 24 hr 12/17/22 05:13: WBC 15.1 H, RBC 2.88 L, Hgb 8.8 L, Hct 26.9 L, MCV 93.4, MCH 30.6, MCHC 32.7, RDW Std Deviation 44.2 H, RDW Coeff of Pedro 12.9, Plt Count 150, MPV 10.0, Immature Gran % (Auto) 0.800, Neut % (Auto) 73.3 H, Lymph % (Auto) 16.5 L, [place] % (Auto) 7.1, Eos % (Auto) 1.8, Baso % (Auto) 0.5, Absolute Neuts (auto) 11.1 H, Absolute Lymphs (auto) 2.49, Nucleated RBC % 0 ROS Constitutional Constitutional: Reports systems reviewed and no addt'l complaints, except as documented; Denies anorexia or headache(s) Cardiovascular Cardiovascular: Reports systems reviewed and no addt'l complaints, except as documented; Denies dizziness, dyspnea, nausea or tachypnea Respiratory/Chest Respiratory/Chest: Reports systems reviewed and no addt'l complaints, except as documented; Denies cough, dyspnea, shortness of breath at rest or tachypnea Gastrointestinal Gastrointestinal: Reports systems reviewed and no addt'l complaints, except as documented; Denies abdominal pain, constipation or nausea Genitourinary Genitourinary: Reports systems reviewed and no addt'l complaints, except as documented; Denies burning urination, difficulty urinating, dysuria, urinary frequency or urinary incontinence Musculoskeletal Musculoskeletal: Reports systems reviewed and no addt'l complaints, except as documented Integumentary Integumentary: Reports systems reviewed and no addt'l complaints, except as documented Neurologic Neurologic: Reports systems reviewed and no addt'l complaints, except as documented; Denies abnormal speech, dizziness or headache(s) Psychiatric Psychiatric: Reports systems reviewed and no addt'l complaints, except as documented Endocrine Endocrinology: Reports systems reviewed and no addt'l complaints, except as documented Hematologic/Lymphatic Hematologic/Lymphatic: Reports systems reviewed and no addt'l complaints, except as documented Physical Exam Const alert, oriented x3 and no apparent distress Neck full ROM Resp normal respiratory effort, normal air movement and no retractions Effort and Inspection: able to speak in complete sentences and symmetric chest movement GI soft to palpation Bladder / Kidney Exam: bladder normal to palpation Uterus Palpation: uterus fundus firm Extremity normal to inspection and full ROM Psych mental status grossly normal, thought process normal and cooperative Assessment & Plan (1) Maternal fever during labor: COMMENT: Triple I ancef q8 hours repeat cbc 12/17- PLAN: plan another dose IV atb prior to D/C possible PO ATB at discharge (2) Vacuum extractor delivery, delivered: COMMENT: JV tachycardia. Felicitas. PLAN: s/p PPD # 2 1. routine post delivery care 2. breast feeding- support given 3. rh positive 4. rubella immune discharge home (3) Active labor at term: (4) Rupture of membranes with clear amniotic fluid: (5) Anemia affecting : COMMENT: started on iron supplement. repeat at 32 weeks(improved to 11.7) (6) Supervision of high risk , antepartum: COMMENT: PRR PETER 12/17/22 girl (secret name)Spouse: Edward GBS neg (7) : QUALIFIERS: Weeks of gestation: 39 weeks Qualified Code(s): Z3A.39 - 39 weeks gestation of COMMENT: GBS Negative, NIPT low risk, carrier neg. 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 FOB to be tested, nl anatomy Charges/Coding Multi Select Codes Urinary/Genital Urinary/Genital CPT Codes: No Charge
--- NOTE | 2022-12-17 07:41 | DCINST_ITS ---
Discharge Instructions Diet Discharge Diet: No restrictions Activity Discharge Activity: Return to Normal Activity May resume sexual activity in: 4-6 weeks Dressing / Incision Call your doctor if your incision/area has: Continuous Slow Oozing, Sudden Increased Bleeding, Increased Pain/ Swelling, Increased Redness and Foul Smelling Discharge Call your doctor if you observe: Fever of 101 or Higher, Coldness, Increased Pain, Numbness or Tingling, Change in Color, Inability to urinate, Inability to have a bowel movement, Using more than 1 pad per hour, Shortness of breath, Dizz iness, Fainting spells, Swelling in the ankles, Chest pain, Increased palpitations (irregular heartbeat), Calf discomfort and Uncontrolled pain Follow Up Care Please Follow Up With: Allison Ross DO When: Please call the office to schedule your follow up appointment in 6 weeks. If you had high blood pressure please call to schedule an appointment in 2 weeks. Test Results: Test results from this visit will be discussed in further detail at your follow- up appointment, if applicable. Discharge Plan Admission Admit Date/Time: 12/15/22 05:05 Attending Provider: Allison Ross Primary Care Provider: Sarwat PhysicianKathy Primary Instructions Patient Instructions: After a Vaginal Discharge Orders/Prescriptions Prescriptions: No Action prenat.vits,rodríguez,[id number] Tablet 1 tab PO DAILY vitamin E 100 unit/0.25 mL drops PO .once day Referrals / Follow Up: Care Physician,Katyh Primary [Primary Care Provider] - Disposition Disposition (needs filled in before D/C Order can be placed): Home, Self Care
[2022-12-17 09:54] VITALS: BP 98/57; PULSE 75
[2022-12-17 09:57] LABS: Pathologist Review Reviewed
[2022-12-17 09:57] LABS: Pathologist Review Reviewed
[2022-12-17 10:00] VITALS: BP 98/57; PULSE 75; RESP 16; TEMP 36.4
== END 2022-12-17 12:45 | disposition home or self-care (01) | DRG 805 ==
LOC: WP 05:09 → WPOUT 12-16 12:08
PROVIDERS: Advanced Practice Midwife; Registered Nurse; Admitting Provider Obstetrics & Gynecology; Visit Provider Obstetrics & Gynecology
DX: O99.02 Anemia complicating childbirth (principal); Z37.0 Single live birth; O41.1230 Chorioamnionitis, third trimester, not applicable or unspecified; O70.1 Second degree perineal laceration during delivery; O76 Abnormality in fetal heart rate and rhythm complicating labor and delivery; Z3A.39 39 weeks gestation of pregnancy; Z87.891 Personal history of nicotine dependence
CPT/HCPCS: 59025; 59050; 84112; 85025; 86780; 86850; 86900; 86901; 88307; 99221; J7120; A4216; G0378

== ENCOUNTER → 2024-06-18 | Outpatient (CLI) | payer SELFPAY ==
[2024-06-18 16:42] LABS: Absolute Lymphocyte Count 2.47 X10^3/uL (0.83-4.51); Basophil# 0.06 X10^3/uL; Basophil% 0.6 % (0-1); Eosinophil# 0.22 X10^3/uL; Eosinophils% 2.1 % (0-5); Hematocrit 35.5 % (37-47); Hemoglobin 12.2 g/dL (12.0-15.0); Lymphocyte # 2.47 X10^3/ul (0.83-4.51); Lymphocyte % 23.4 % (19-41); Mean Corp Hgb Conc 34.4 g/dL (32-36); Mean Corpuscular Hgb 29.8 pg (27.0-32.0); Mean Corpuscular Volume 86.6 fL (81-99); Mean Platelet Vol. 10.5 fl (6.2-12.0); Monocyte# 0.78 X10^3/uL; Monocyte% 7.4 % (0-10); NRBC Flagged by Analyzer 0 % (0-5); Neutrophil # 6.99 X10^3/uL (2.7-7.7); Neutrophil % 66.2 % (47-70); Platelet Count 224 K/mm3 (150-450); RBC Distribution Width CV 12.1 % (11.6-14.6); RBC Distribution Width SD 38.6 fl (35.1-43.9); White Blood Count 10.6 K/mm3 (4.4-11.0)
[2024-06-18 17:36] LABS: HIV Nonreactive (Nonreactive); Hepatitis B Surface Antigen Nonreactive (Nonreactive); Hepatitis C Antibody Nonreactive (Nonreactive); Rubella IgG REAC (Nonreactive); Syphilis Antibodies Nonreactive (Nonreactive)
== END | disposition home or self-care (01) ==
PROVIDERS: Referring Provider Obstetrics & Gynecology; Visit Provider Obstetrics & Gynecology
DX: O09.90 Supervision of high risk pregnancy, unspecified, unspecified trimester (principal); Z3A.00 Weeks of gestation of pregnancy not specified
CPT/HCPCS: 36415; 85025; 86703; 86762; 86780; 86803; 86850; 86900; 86901; 87086; 87088; 87340; 87491; 87591

== ENCOUNTER 2024-08-30 16:24 | Emergency (ER) | payer SELFPAY ==
[2024-08-30 16:25] VITALS: BP 120/66; PULSE 103; RESP 16; TEMP 36.9; O2SAT 98; BMI 28.5
--- NOTE | 2024-08-30 16:29 | US_ITS ---
PROCEDURE: OB LIMITED (NO BIOMETRICS) 08/30/2024 REASON FOR EXAM: VAG BLEEDING 19 WEEK 5 DAYS TECHNIQUE: OB LIMITED (NO BIOMETRICS) COMPARISON: None. FINDINGS position is breech. heart rate of 147 beats per minute. Cervical length of 3.9 cm and closed. Grade 0 placenta. Posterior location with complete previa. age of 19 weeks and 5 days. Complex appearance of the placenta with increased vascularity which may represent vasa previa. Placenta abruption is less likely due to increased vascularity. US/OB Limited (No Biometrics) IMPRESSION: Placenta previa. Complex placenta with increased vascularity possibly representing vasa previa. Partial abruption is possible but less likely due to increased vascularity. Reading Location: [id number]
[2024-08-30 16:42] LABS: Bacteria 0 SEEN /hpf (None Seen); Mucous, Urine 0 SEEN /hpf (<or=2+)
[2024-08-30 17:18] LABS: Color, Urine Straw (Yellow); Glucose, Dipstick Normal (Normal); Ketone-Dipstick Negative (Negative); Leukocyte Esterase-Dipstick Negative /ul (Negative); Nitrite-Dipstick Negative (Negative); Occult Blood-Urine 150 /ul (Negative); Protein-Dipstick Negative (Negative); Urine Bilirubin Dipstick Negative (Negative); Urine Clarity Clear (Clear); Urine Urobilinogen Normal (Normal)
[2024-08-30 17:53] LABS: Red Blood Cells-Urine 0-5 SEEN /hpf (0-5); Squamous Epithelial Cells - UA 0-5 SEEN /hpf (5-10); White Blood Cells 0-5 SEEN /hpf (0-5)
[2024-08-30 18:24] VITALS: BP 100/61; PULSE 70; RESP 16; O2SAT 99
--- NOTE | 2024-08-30 19:34 | EDS_ITS ---
HPI HPI - Female History of Present Illness Chief Complaint: Vag Bld, Preg Narrative Narrative: Patient is a 34-year-old female G2, P1 with no previous complications who presents to the emergency department chief complaint of vaginal bleeding. States that her bleeding started around 330 this afternoon and notes that she has gone to the bathroom several times now and has essentially no bleeding at all. She states that she is currently 19 weeks and in 2 days will be 20 weeks. Patient states that she called her [employer] and they advised her to come to the emergency department to be evaluated. Patient denies any intercourse or any specific inciting event. States that she did workout earlier this morning and does not know if this was the exact cause. PFSH [facility] Medical History Vacuum extractor delivery, delivered Home Medications ?Medication ?Instructions ?Recorded ?Last Taken ?Type prenat.vits,rodríguez,[id number] 1 tab PO DAILY pregnanc y 05/03/22 12/13/22 History ascorbic acid (vitamin C) 500 mg mg PO 05/22/23 Unknow n History capsule cholecalciferol (vitamin D3) 25 25 mcg PO DAILY Unknown History mcg (1,000 unit) capsule Allergy/AdvReac Type Severity Reaction Status Date / Time No Known Allergies Allergy Verified 08/30/24 16:25 Family History Father Extra digits extra pinky finger Mother Seizures Grandfather Cancer prostate Sister Extra digits extra toe on each foot Surgical History History of adenoidectomy Social History adopted: No household members: spouse housing: house 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: No pets and animals: No history of recent travel: No sexually active: Yes Smoking Status: Never smoker alcohol intake: never substance use type: does not use well-balanced diet: daily or most days caffeine: No eating out: rarely or never during the past year weight has: remained stable what type of physical activity do you participate in: walking and other details: home workouts frequency: 3-4 times per week duration: 30-45 minutes/day judi/congregation: Non-Amish/Independent seatbelt use: always do you feel safe at home: Yes additional social history: Spouse: Edward POWELL ED ROS Narrative Constitutional: Denies any fevers, chills, headaches, lightness, dizziness Eyes: Denies change in vision double vision blurry vision Cardiovascular: Denies chest pain Respiratory: Denies shortness of breath Abdomen: Denies abdominal pain nausea vomit diarrhea : Denies any urinary symptoms complains of vaginal bleeding as noted above but has since improved Neurological: Denies any numbness, wheeze, tingling Musculoskeletal: Denies back pain Skin: Denies any rashes or lesions EXAM Physical Exam Narrative Exam Narrative: General: Patient lying in bed rest comfortably did not appear to be acute distress Head: Atraumatic, normocephalic Eyes: PERRL bilaterally, EOMI blood, no conjunctival injection noted Neck: Soft, supple, trachea midline Cardiovascular: Regular rate and rhythm no murmurs gallops rubs noted Respiratory: Clear to auscultation bilaterally Abdomen: Soft, nondistended, nontender to palpation Extremities: +5/5 strength noted in the bilateral upper and lower extremities, radial pulses +2/4 in about extremities, no pedal edema exam Neurological: Patient following commands knew that she was at [facility] years 2024 Skin: Warm, dry, tact no rashes or lesions noted Const Vital Signs: 08/30/24 16:25 08/30/24 18:24 Temperature 98.4 F Temperature Source Oral Pulse Rate 103 H 70 Respiratory Rate 16 16 Blood Pressure 120/66 100/61 Blood Pressure Mean 84 74 Pulse Ox 98 99 Oxygen Delivery Method Room Air Room Air MDM MDM MDM Narrative Medical decision making narrative: Patient is a 34-year-old female who presents to the emergency department chief complaint of vaginal bleeding. On the differential diagnose includes developing to UTI, threatened miscarriage, placenta previa. Once workup is obtained reviewed she will be reevaluated. Patient urinalysis reviewed and showed no evidence of infection there was 150 occult blood. Patient's ultrasound was reviewed and showed placenta previa with possible representing vasa previa. heart tones were 147. Closed os. Called and spoke with [facility] [employer] Jose discussed with them and they state that if she is Rh- she should get RhoGAM and she will have close follow-up with them she will be getting a phone call from them tomorrow morning. Patient was a positive on her antibody screen therefore she does not need RhoGAM at this point time. Discussed this plan with the patient and she was advised that she is not to have any intercourse or have nothing inserted in her vagina she is to follow-up with her OB in the outpatient setting return with worsening symptoms or concerns. She is agreeable this plan as well as her significant other bedside all question concerns answered she is discharged home in stable condition. Lab Data Labs: Laboratory Results - last 24 hr 08/30/24 16:35 Urine Color Straw Urine Clarity Clear Urine pH 7.0 Ur Specific [place] 1.010 Urine Protein Negative Urine Glucose (UA) Normal Urine Ketones Negative Urine Occult Blood 150 H Urine Nitrite Negative Urine Bilirubin Negative Urine Urobilinogen Normal Ur Leukocyte Esterase Negative Urine RBC 0-5 SEEN Urine WBC 0-5 SEEN Ur Squamous Epith Cells 0-5 SEEN Urine Bacteria 0 SEEN Urine Mucus 0 SEEN Radiography Diagnostic Testing: Clinical Impression(s) from Imaging Studies Obstetrics Ultrasound 08/30/24 16:29 IMPRESSION: Placenta previa. Complex placenta with increased vascularity possibly representing vasa previa. Partial abruption is possible but less likely due to increased vascularity. Reading Location: [place] [id number] Discharge Plan Triage Chief Complaint: Vag Bld, Preg ED Provider: Champ Wells Dx/Rx/DC Orders Clinical Impression: Vaginal bleeding, , Placenta previa Prescriptions: No Action prenat.vits,rodríguez,[id number] Tablet 1 tab PO DAILY cholecalciferol (vitamin D3) 25 mcg (1,000 unit) capsule 25 mcg PO DAILY ascorbic acid (vitamin C) 500 mg capsule PO Primary Care Provider: Care Physician,No Primary Referrals: Care Physician,No Primary [Primary Care Provider] - Activity Restrictions/Additional Instructions: Follow-up with your [employer] tomorrow give them a call if they do not call you first thing in the morning. Return with worsening symptoms or other concerns. Do not insert anything in your vagina you are on pelvic rest. Print Language: Icelandic Disposition Disposition: Home, Self Care
[2024-08-30 21:00] VITALS: BP 109/74; PULSE 78; RESP 14; O2SAT 98
[2024-08-30 22:15] VITALS: BP 124/74; PULSE 78; RESP 16; TEMP 36.6; O2SAT 99
== END 2024-08-30 22:16 | disposition home or self-care (01) ==
PROVIDERS: Emergency Provider Emergency Medicine; Visit Provider Emergency Medicine
DX: O44.12 Complete placenta previa with hemorrhage, second trimester (principal); Z3A.19 19 weeks gestation of pregnancy
CPT/HCPCS: 76815; 81001; 99282

== ENCOUNTER 2024-09-17 06:45 | Outpatient (CLI) | payer SELFPAY ==
[2024-09-17] VITALS (23 sets, daily range): BP systolic 96–111; BP diastolic 52–62; PULSE 84–105; RESP 14–18; TEMP 36.4–37.3; O2SAT 90–100; BMI 28.8
--- OUTSIDE RECORDS SUMMARY | 2024-09-17 06:56 | XMS RPT_ITS | CCD ---
Author Organization [facility] Care Team Providers Care Electrician Control Equipment Name Role Phone Care Physician, No Primary Primary Care Provider Unavailable Care Physician, No Primary Referring Provider Un available Dr. Allison Ross Attending Provider [phone] Care Physician, No Primary Primary Care Provider Unavailable Care Physician, No Primary Referring Provider Un available SAULO Garcia Attending Provider [phone] Dr. Allison Ross Attending Provider 1(3 30) SAULO Velasco Attending Provider [phone] Care Physician, No Primary Primary Care Provider Unavailable Care Physician, No Primary Referring Provider Un available Dr. Connie Talavera Attending Provider [phone] Care Physician, No Primary Primary Care Provider Unavailable Care Physician, No Primary Referring Provider Un available Dr. Allison Ross Attending Provider [phone] Care Physician, No Primary Primary Care Provider Unavailable Care Physician, No Primary Referring Provider Un available Dr. Allison Ross Attending Provider 1(3 30) SAULO Garcia Attending Provider [phone] SAULO Garcia Referring Provider [phone] SAULO Garcia Other Provider [phone] Dr. Allison Ross Admit Provider Dr. Allison Ross Other Provider Care Physician, No Primary Primary Care Provider Unavailable Care Physician, No Primary Referring Provider Un available Dr. Connie Talavera MD Attending Provider [phone] Dr. Connie Talavera MD Referring Provider [phone] Dr. Allison Ross DO Attending Provider Dr. Champ Ahumada DO Emergency Provider NO PRIMARY CARE, Primary Care Unavailable THA CALERO Attending Unavailable CONNIE TALAVERA Referring UnavailDr. Champ Stewart DO Attending Provider Gabrielle Garcia CNM Attending Provider Care Physician, No Primary Referring Unava ilable Care Physician, No Primary Primary Care Unava ilable Allison Ross Attending Unavailabl e Marcdeo, Connie Attending Unavailable Care Physician, No Primary Primary Care Unava ilable Care Physician, No Primary Referring Unava ilable Marcanthyoselin, Connie Attending Unavailable Marcdeo, Connie Referring Unavailable Care Physician, No Primary Primary Care Unava ilable Champ Wells Attending Unavailable Care Physician, No Primary Primary Care Unava ilable Marcanthyoselin, Connie Attending Unavailable Marcdeo, Connie Referring Unavailable Care Physician, No Primary Primary Care Unava ilable Gabrielle Garcia Attending Unavailable Care Physician, No Primary Referring Unava ilable Care Physician, No Primary Primary Care Unava ilable Susan, Connie Attending Unavailable Care Physician, No Primary Primary Care Unava ilable Care Physician, No Primary Referring Unava ilable Medications Current Medications Medication Drug Class(es) Dates Sig (Normalized) Sig (Original) ascorbic acid 500 mg oral capsule (5 sources) Vitamin C Start: 05-22-2023 Ascorbic Acid (Vitamin C) 500 mg capsule Active mg PO May 22, 2023 12:00am cholecalciferol 0.025 mg oral capsule (5 sources) Vitamin D Start: 05-22-2023 take 1 capsule by mouth once daily Cholecalciferol (Vitamin D3) 25 mcg (1,000 unit) capsule Active 25 ug PO DAILY May 22, 2023 12:00am Prenat.Vits,Rodríguez,Min-I paul-Folic (7 sources) Start: 05-03-2022 take 1 tablet by mouth once daily Prenat.Vits,Rodríguez,Min- Iron-Folic Active 1 TABLET PO DAILY May 03, 2022 1:00am Prenat.Vits,Rodríguez,Min-I paul-Folic tablet (5 sources) Start: 05-03-2022 Prenat.Vits,Rodríguez,Min- Iron-Folic tablet Active 1 {tbl} PO DAILY May 03, 2022 1:00am Start: 05-03-2022 Prenat.Vits,Ca l,Yqx-Cotp-Lgxjc tablet Active 1 {tbl} PO DAILY May 03, 2022 1:00am Completed/Discontinued Medications Medication Drug Class(es) Dates Sig (Normalized) Sig (Original) vitamin e 400 unt/ml oral solution (6 sources) Start: 12-15-2022 End: 06-04-2024 Vitamin E 100 unit/0.25 mL drops Discontinued U PO .once day December 15, 2022 12:00am June 04, 2024 2:47pm Problems Problem Classification Problem Date Documented Date Episodic/Chronic Hemorrhage during ; abruptio placenta; placenta previa (4 sources) Placenta previa; Translations: [Complete placenta previa NOS or without hemorrhage, unspecified trimester] Onset: 09-06-2024 08-30-2024 Episodic Comment on above: complete previa and possible Vasa previa. MFM consult Other complications of ; puerperium affecting management of mother (6 sources) Vacuum extractor delivery - delivered; Translations: [Complication of labor and delivery, unspecified] 12-16-2022 Episodic Comment on above: JV tachycardia . Felicitas. Other complications of ; puerperium affecting management of mother (6 sources) Maternal pyrexia in labor; Translations: [Pyrexia during labor, not elsewhere classified] 12-17-2022 Episodic Comment on above: Triple Iancef q8 lencho rsrepeat cbc Other complications of ; puerperium affecting management of mother (1 source) Pyrexia during labor, not elsewhere classified; Translations: [Maternal pyrexia during labor, unspecified, unspecified as to episode of care or not applicable] 12-17-2022 Episodic Other complications of ; puerperium affecting management of mother (1 source) Complication of labor and delivery, unspecified; Translations: [Forceps or vacuum extractor delivery without mention of indication, delivered, with or without mention of antepartum condition] 12-17-2022 Episodic Other complications of (10 sources) Anemia of ; Translations: [Anemia complicating , unspecified trimester] 09-27-2022 Chronic Comment on above: started on iron supp lement. repeat at 32 weeks(improved to 11.7) Other complications of (20 sources) Anemia complicating , unspecified trimester; Translations: [Anemia of mother, unspecified as to episode of care or not applicable] 10-11-2022 Chronic Other complications of (20 sources) High risk ; Translations: [Supervision of high risk , unspecified, unspecified trimester] 05-03-2022 Episodic Comment on above: , PETER 01/19/25, PC Felicitas White, Edward PRR PETER 3 girl (secret name)Spouse: Tito neg Other complications of (20 sources) Supervision of high risk , unspecified, unspecified trimester; Translations: [Supervision of unspecified high-risk ] Onset: 09-06-2024 05-09-2022 Episodic Other complications of (6 sources) Vaginal discharge; Translations: [Other specified related conditions, unspecified trimester] 12-15-2022 Episodic Comment on above: ROM neg. D/C home Other complications of (1 source) Other specified related conditions, unspecified trimester; Translations: [Other specified complications of , unspecified as to episode of care or not applicable] 12-15-2022 Episodic Other complications of (18 sources) Advanced maternal age ; Translations: [Elderly multigravida, unspecified as to episode of care or not applicable] 06-18-2024 Episodic Comment on above: genetic counseling, declined screening. plan growth US at 36 weeks. Other female genital disorders (3 sources) Vaginal bleeding; Translations: [Abnormal uterine and vaginal bleeding, unspecified] 08-30-2024 Chronic Other female genital disorders (1 source) Abnormal uterine and vaginal bleeding, unspecified; Translations: [Abnormal uterine and vaginal bleeding, unspecified] Onset: 09-06-2024 Chronic Other and delivery including normal (20 sources) ; Translations: [Encounter for supervision of normal , unspecified, unspecified trimester] 05-03-2022 Episodic Comment on above: declined NIPT & Medeiros ier testing GBS Negative, NIPT l ow risk, carrier neg. 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 FOB to be tested, nl anatomy Polyhydramnios and other problems of amniotic cavity (7 sources) Amniotic membrane finding; Translations: [Rupture of membranes with clear amniotic fluid] 12-15-2022 Episodic Residual codes; unclassified (18 sources) H/O: previous delivery by vacuum extraction; Translations: [Personal history of other complications of , childbirth and the puerperium] 06-04-2024 Episodic Comment on above: tachycardia Residual codes; unclassified (1 source) Personal history of other complications of , childbirth and the puerperium; Translations: [Personal history of other complications of , childbirth and the puerperium] Onset: 09-06-2024 Episodic Residual codes; unclassified (1 source) 20 weeks gestation of ; Translations: [20 weeks gestation of ] Onset: 09-06-2024 Episodic Unclassified (2 sources) Normal labor; Translations: [Active labor at term] 12-15-2022 Results Test Name Value Interpretation Reference Range Facility Fire Equipment Repairer Inspector Office Visit Reporton 09-06-2024 Fire Equipment Repairer Inspector Office Visit Report [facility] [address], [address] [place] [address] OFFICE VISIT Date of Service: 09/06/24 MR#: [id number] Acct: [id number] Name: LINDSEY MCKEON Rep #: [id number] : 1990 Provider: SAULO Rick ams Age/Sex: 34/F [place] [facility] [place]: [place] Intake Vital Signs 07/16/24 08:43 08/30/24 16:25 09/06/24 14:30 Height 5 ft 3 in 5 ft 3 in 5 ft 3 in Weight: 165 lb 2 oz BMI 29.2 BP 105/69 Intake Visit Reasons: 21wk ob Chief Complaint: 21wk OB Mathematical Scientist Required: No Is patient in pain?: No Allergies No Known Allergies Allergy (Verified 09/06/24 14:29) Medications ???Medication ???Instructions ???Recorded ???Confirmed ???Type prenat.vits,rodríguez,min- iron-folic 1 tab PO DAILY 05/03/22 09/06/24 History ascorbic acid (vitamin C) 500 mg mg PO 05/22/23 09/06/24 History capsule cholecalciferol (vitamin D3) 25 25 mcg PO DAILY 05/22/23 09/06/24 History mcg (1,000 unit) capsule Last Menstrual Period: 04/14/24 : No Have you fallen in the past year?: No PFSH PFSH Medical History Vacuum extractor delivery, delivered Surgical History History of adenoidectomy Family History Father Extra digits extra pinky finger Mother Seizures Grandfather Cancer prostate Sister Extra digits extra toe on each foot Social History adopted: No household members: spouse housing: house 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: No pets and animals: No history of recent travel: No sexually active: Yes Smoking Status: Never smoker alcohol intake: never substance use type: does not use well-balanced diet: daily or most days caffeine: No eating out: rarely or never during the past year weight has: remained stable what type of physical activity do you participate in: walking and other details: home workouts frequency: 3-4 times per week duration: 30-45 minutes/day judi/oriental orthodox: Non-Jew/I ndependent seatbelt use: always do you feel safe at home: Yes additional social history: Spouse: Edward History 2 Elective abortions Hx Para 1 Spontaneous abortions Hx # Term Pregnancies 1 Ectopic pregnancies Hx # Pregnancies Multiple births # of living children 1 Past Pregnancies Del. Date Name GA/Weeks Outcome Route Bth Weight Infant Gen Labor Lgth Anesthesia Del Locatn Provider FOB 12/15/22 Felicitas Breaux 39 live - full term vacuum 7#9oz Female epidural [facility] Steph De Souza Edward Delivery Date: 12/15/22 Last Updated by: Madeline Rothman vacuum extraction delivery tachycardia HPI 21wk ob Details: LINDSEY MCKEON is a 34 year old who presents for routine OB visit. OB Visit PETER Calculator Estimated Delivery Date Method Current WG Current Estimate 01/19/25 LMP (Certain) 20w 5d Other Estimates 01/16/25 Ultrasound #1 21w 1d Expected Delivery Route/Plan Labor Preferences- CB/BF classes: [] labor support person: [] labor intervention preferences: [] pain management options preferred: [] cut cord/dad catch: [] : [] PP control planned: [] discussed possible routes of delivery and associated risks: [] special requests: [] Specific Issue/Plans Covid status: [] Flu vaccine: [] Tdap vaccine: [] Rhogam: [] LARC form signed: [] Problem list reviewed and updated with the most current plan of care details and appropriate orders placed. Relevant counseling for the gestational age provided. Continue routine care and follow up unless otherwise noted in visit notes/problem list details Initial Weight: Not Recorded Date -???-???-???-???-??? -???-???-???-???-??? -???-???- EGA Weight BP Urine Prot -???-???-???-???-??? -???-???-???-???-??? -???-???- Glucose FHR FuHt Pres Dilation -???-???-???-???-??? -???-???-???-???-??? -???-???- Effaced St Visit Note 06/18/24 -???-???-???-???-??? -???-???-???-???-??? -???-???- 9w 2d 158 lb 4 oz 104/64 -???-???-???-???-??? -???-???-???-???-??? -???-???- 150 -???-???-???-???-??? -???-???-???-???-??? -???-???- SM- CRL cons 3 cm 07/16/24 -???-???-???-???-??? -???-???-???-???-??? -???-???- 13w 2d 161 lb 2 oz 104/65 -???-???-???-???-??? -???-???-???-???-??? -???-???- 150 -???-???-???-???-??? -???-???-???-???-??? -???-???- SM- no vb cr maping 08/11/24 -???-???-???-???-??? -???-???-???-???-??? -???-???- 17w 0d 162 lb 97/61 Negative -???-???-???-???-??? -???-???-???-???-??? -???-???- Negative 140 -???-???-???-???-??? -???-???-???-???-??? -?? (more content not included)... Normal [facility] [id number] 08-30-2024 A1 CELL Not performed [facility] Comment on above: Result Comment: NO S PECIMEN COLLECTED. PATIENT DEPARTED ED. Performed By: #### B 882-1 #### [facility] [address] [place], [place], [id number] ABO and Rh group Nom (Bld) Test Not Performed [facility] Comment on above: Result Comment: NO S PECIMEN COLLECTED. PATIENT DEPARTED ED. Performed By: #### B 882-1 #### [facility] [address] [place], [place], [id number] ANTI A Not performed [facility] Comment on above: Result Comment: NO S PECIMEN COLLECTED. PATIENT DEPARTED ED. Performed By: #### B 882-1 #### [facility] [address] [place], [address] ANTI B Not performed Normal [facility] Comment on above: Result Comment: NO S PECIMEN COLLECTED. PATIENT DEPARTED ED. Performed By: #### B 882-1 #### [facility] [address] [place], [address] ANTI D Not performed Normal [facility] Comment on above: Result Comment: NO S PECIMEN COLLECTED. PATIENT DEPARTED ED. Performed By: #### B 882-1 #### [facility] [address] [place], [address] B CELLS Not performed Normal [facility] Comment on above: Result Comment: NO S PECIMEN COLLECTED. PATIENT DEPARTED ED. Performed By: #### B 882-1 #### [facility] [address] [place], [address] Bilirubin Test strip Ql (U)O rdered By: Champ Wells on 08-30-2024 Bilirubin Ql (U) Negative Negative [facility] Emergency Department Summary on 08-30-2024 Emergency Department Summary [facility] Medical Records Department [address] [place] [address] Emergency Department Summary 08/30/24 MR#: [id number] Acct: [id number] Name: LINDSEY MCKEON Rep #: [id number] : 1990 34 From: Champ Wells DO PCP: Care Physician,No Primary Status:REG ER Location: ED HPI HPI - Female History of Present Illness Chief Complaint: Vag Bld, Preg Narrative Narrative: Patient is a 34-year-old female G2, P1 with no previous complications who presents to the emergency department chief complaint of vaginal bleeding. States that her bleeding started around 330 this afternoon and notes that she has gone to the bathroom several times now and has essentially no bleeding at all. She states that she is currently 19 weeks and in 2 days will be 20 weeks. Patient states that she called her OIL EXPELLER OPERATOR and they advised her to come to the emergency department to be evaluated. Patient denies any intercourse or any specific inciting event. States that she did workout earlier this morning and does not know if this was the exact cause. [facility] Medical History Vacuum extractor delivery, delivered Home Medications ???Medication ???Instructions ???Recorded ???Last Taken ???Type prenat.vits,rodríguez,min- iron-folic 1 tab PO DAILY 05/03/22 12/13/22 History ascorbic acid (vitamin C) 500 mg mg PO 05/22/23 Unknown History capsule cholecalciferol (vitamin D3) 25 25 mcg PO DAILY 05/22/23 Unknown H istory mcg (1,000 unit) capsule Allergy/AdvReac Type Severity Reaction Status Date / Time No Known Allergies Allergy Verified 08/30/24 16:25 Family History Father Extra digits extra pinky finger Mother Seizures Grandfather Cancer prostate Sister Extra digits extra toe on each foot Surgical History History of adenoidectomy Social History adopted: No household members: spouse housing: house 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: No pets and animals: No history of recent travel: No sexually active: Yes Smoking Status: Never smoker alcohol intake: never substance use type: does not use well-balanced diet: daily or most days caffeine: No eating out: rarely or never during the past year weight has: remained stable what type of physical activity do you participate in: walking and other details: home workouts frequency: 3-4 times per week duration: 30-45 minutes/day judi/oriental orthodox: Non-Jew/I ndependent seatbelt use: always do you feel safe at home: Yes additional social history: Spouse: Edward POWELL ED ROS Narrative Constitutional: Denies any fevers, chills, headaches, lightness, dizziness Eyes: Denies change in vision double vision blurry vision Cardiovascular: Denies chest pain Respiratory: Denies shortness of breath Abdomen: Denies abdominal pain nausea vomit diarrhea : Denies any urinary symptoms complains of vaginal bleeding as noted above but has since improved Neurological: Denies any numbness, wheeze, tingling Musculoskeletal: Denies back pain Skin: Denies any rashes or lesions EXAM Physical Exam Narrative Exam Narrative: General: Patient lying in bed rest comfortably did not appear to be acute distress Head: Atraumatic, normocephalic Eyes: PERRL bilaterally, EOMI blood, no conjunctival injection noted Neck: Soft, supple, trachea midline Cardiovascular: Regular rate and rhythm no murmurs gallops rubs noted Respiratory: Clear to auscultation bilaterally Abdomen: Soft, nondistended, nontender to palpation Extremities: +5/5 strength noted in the bilateral upper and lower extremities, radial pulses +2/4 in about extremities, no pedal edema exam Neurological: Patient following commands knew that she was at [facility] years 2024 Skin: Warm, dry, tact no rashes or lesions noted Const Vital Signs: 08/30/24 16:25 08/30/24 18:24 Temperature 98.4 F Temperature Source Oral Pulse Rate 103 H 70 Respiratory Rate 16 16 Blood Pressure 120/66 100/61 Blood Pressure Mean 84 74 Pulse Ox 98 99 Oxygen Delivery Method Room Air Room Air MDM MDM MDM Narrative Medical decision making narrative: Patient is a 34-year-old female who presents to the emergency department chief complaint of vaginal bleeding. On the differential diagnose includes developing to UTI, threatened miscarriage, placenta previa. Once workup is obtained reviewed she will be reevaluated. Patient urinalysis reviewed and showed no evidence of infection there was 150 occult blood. Patient's ultrasound was reviewed and show (more content not included)... Normal [facility] Ketones Test strip Ql (U)Ord ered By: Champ Wells on 08-30-2024 Ketones Ql (U) Negative Negative [facility] Microscopic analysis of urin e for red blood cells (RBC)Ordered By: Champ Wells on 08-30-2024 Microscopic analysis of urine for red blood cells (RBC) 0-5 SEEN /hpf 0-5 [facility] Mucus LM Ql (Urine sed)Order ed By: Champ Wells on 08-30-2024 Mucus Ql (Urine sed) 0 SEEN /hpf [facility] Nitrite Test strip Ql (U)Ord ered By: Champ Wells on 08-30-2024 Nitrite Ql (U) Negative Negative [facility] OB Limited (No Biometrics)on 08-30-2024 OB Limited (No Biometrics) [facility] Imaging Services [address] [place] [address] OB Limited (No Biometrics) MR#: [id number] Acct: [id number] Name: LINDSEY MCKEON Rep #: [id number] : 1990 F 34 From: Edward Puente MD PCP: Care Physician,No Primary Status: REG ER Study: OB Limited (No Biometrics) Date of Exam: 08/30 Exam# [id number] Ordering Dr: Champ Wells DO PROCEDURE: OB LIMITED (NO BIOMETRICS) 08/30/2024 REASON FOR EXAM: VAG BLEEDING 19 WEEK 5 DAYS TECHNIQUE: OB LIMITED (NO BIOMETRICS) COMPARISON: None. FINDINGS position is breech. heart rate of 147 beats per minute. Cervical length of 3.9 cm and closed. Grade 0 placenta. Posterior location with complete previa. age of 19 weeks and 5 days. Complex appearance of the placenta with increased vascularity which may represent vasa previa. Placenta abruption is less likely due to increased vascularity. US/OB Limited (No Biometrics) IMPRESSION: Placenta previa. Complex placenta with increased vascularity possibly representing vasa previa. Partial abruption is possible but less likely due to increased vascularity. Reading Location: [id number] CC: Dr. Champ Wells DO; No Primary Care Physician Process Control Programmer: Signed Normal [facility] Protein Test strip Ql (U)Ord ered By: Champ Wells on 08-30-2024 Protein Ql (U) Negative Negative [facility] Squamous epithelial cells de tection in urine sediment by light microscopyOrdered By: Champ Wells on 08-30-2024 Epithelial cells.squamous LM Ql (Urine sed) 0-5 SEEN /hpf 5-10 [facility] Urinalysis, Completeon 08-30 EPI,SQUAMOUS 0-5 SEEN Normal 5-10 [facility] Comment on above: Order Comment: CLEAN CATCH Performed By: #### L 400.0001 #### [facility] [address] [place], [address] RBC 0-5 SEEN Normal 0-5 [facility] Comment on above: Order Comment: CLEAN CATCH Performed By: #### L 400.0001 #### [facility] [address] [place], [address] WBC 0-5 SEEN Normal 0-5 [facility] Comment on above: Order Comment: CLEAN CATCH Performed By: #### L [id number] #### [facility] [address] [place], [address] BACTERIA 0 SEEN Normal None Seen [facility] Comment on above: Order Comment: CLEAN CATCH Performed By: #### L [id number] #### [facility] [address] [place], [address] Mucus Ql (Urine sed) 0 SEEN Normal [facility] Comment on above: Order Comment: CLEAN CATCH Performed By: #### L [id number] #### [facility] [address] [place], [address] Urine clarityOrdered By: Nolan Wells on 08-30-2024 Clarity (U) Clear Clear [facility] Urine color determinationOrd ered By: Champ Wells on 08-30-2024 Color (U) Straw Yellow [facility] Urine glucose detectionOrder ed By: Champ Wells on 08-30-2024 Glucose Ql (U) Normal mg/dl Normal [facility] Urine leukocyte esterase det ection by dipstickOrdered By: Champ Wells on 08-30-2024 Leukocyte esterase Test strip Ql (U) Negative Negative [facility] Urine pHOrdered By: Champ shepherd on 08-30-2024 pH (U) 7.0 [pH] 5.0 - 8.0 [facility] Urine sediment bacteria coun t by microscopy (number/high power field)Ordered By: Champ Wells on 08-30-2024 Bacteria LM.HPF (Urine sed) [#/Area] 0 /[HPF] None Seen [facility] Urine specific gravity measu rementOrdered By: Champ Wells on 08-30-2024 Specific gravity (U) [Rel density] 1.010 1.002-1.030 [facility] Urine urobilinogen measureme ntOrdered By: Champ Wells on 08-30-2024 Urobilinogen Ql (U) Normal mg/dl Normal [facility] White blood cell countOrdere d By: Champ Wells on 08-30-2024 White blood cell count 0-5 SEEN /hpf 0-5 [facility] Laboratory - Chemistry and C hemistry - challengeOrdered By: Allison De Souza on 08-11-2024 Glucose Ql (U) Negative [facility] Laboratory - UrinalysisOrder ed By: Allison De Souza on 08-11-2024 Protein Ql (U) Negative [facility] Fire Equipment Repairer Inspector Office Visit Reporton 08-11-2024 Fire Equipment Repairer Inspector Office Visit Report [facility] [address], [address] [place] [address] OFFICE VISIT Date of Service: 08/11/24 MR#: [id number] Acct: [id number] Name: LINDSEY MCKEON Rep #: [id number] : 1990 Provider: Dr. Allison Hernandez, Age/Sex: 34/F [place] [facility] [place]: [place]igned Intake Vital Signs 06/18/24 13:12 07/16/24 08:43 08/11/24 10:40 Height 5 ft 3 in 5 ft 3 in 5 ft 3 in Weight: 162 lb BMI 28.7 BP 97/61 Intake Visit Reasons: 18 wk ob Mathematical Scientist Required: No Is patient in pain?: No Allergies No Known Allergies Allergy (Verified 08/11/24 10:41) Medications ???Medication ???Instructions ???Recorded ???Confirmed ???Type prenat.vits,rodríguez,min- iron-folic 1 tab PO DAILY 05/03/22 08/11/24 History ascorbic acid (vitamin C) 500 mg mg PO 05/22/23 08/11/24 History capsule cholecalciferol (vitamin D3) 25 25 mcg PO DAILY 05/22/23 08/11/24 History mcg (1,000 unit) capsule Last Menstrual Period: 04/14/24 Zika: Zika virus screening: Negative : No PFSH PFSH Medical History Vacuum extractor delivery, delivered Surgical History History of adenoidectomy Family History Father Extra digits extra pinky finger Mother Seizures Grandfather Cancer prostate Sister Extra digits extra toe on each foot Social History adopted: No household members: spouse housing: house 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: No pets and animals: No history of recent travel: No sexually active: Yes Smoking Status: Never smoker alcohol intake: never substance use type: does not use well-balanced diet: daily or most days caffeine: No eating out: rarely or never during the past year weight has: remained stable what type of physical activity do you participate in: walking and other details: home workouts frequency: 3-4 times per week duration: 30-45 minutes/day judi/oriental orthodox: Non-Jew/I ndependent seatbelt use: always do you feel safe at home: Yes additional social history: Spouse: Edward History 2 Elective abortions Hx Para 1 Spontaneous abortions Hx # Term Pregnancies 1 Ectopic pregnancies Hx # Pregnancies Multiple births # of living children 1 Past Pregnancies Del. Date Name GA/Weeks Outcome Route Bth Weight Infant Gen Labor Lgth Anesthesia Del Locatn Provider FOB 12/15/22 Felicitas Breaux 39 live - full term vacuum 7#9oz Female epidural [facility] Patriciaradha Parkoctavio Edward Delivery Date: 12/15/22 Last Updated by: Madeline Rothman vacuum extraction delivery tachycardia HPI 18 wk ob Details: LINDSEY MCKEON is a 34 year old who presents for routine OB visit. OB Visit PETER Calculator Estimated Delivery Date Method Current WG Current Estimate 01/19/25 LMP (Certain) 17w 0d Other Estimates 01/16/25 Ultrasound #1 17w 3d Expected Delivery Route/Plan Labor Preferences- CB/BF classes: [] labor support person: [] labor intervention preferences: [] pain management options preferred: [] cut cord/dad catch: [] : [] PP control planned: [] discussed possible routes of delivery and associated risks: [] special requests: [] Specific Issue/Plans Covid status: [] Flu vaccine: [] Tdap vaccine: [] Rhogam: [] LARC form signed: [] Problem list reviewed and updated with the most current plan of care details and appropriate orders placed. Relevant counseling for the gestational age provided. Continue routine care and follow up unless otherwise noted in visit notes/problem list details Initial Weight: Not Recorded Date -???-???-???-???-??? -???-???-???-???-??? -???-???- EGA Weight BP Urine Prot -???-???-???-???-??? -???-???-???-???-??? -???-???- Glucose FHR FuHt Pres Dilation -???-???-???-???-??? -???-???-???-???-??? -???-???- Effaced St Visit Note 06/18/24 -???-???-???-???-??? -???-???-???-???-??? -???-???- 9w 2d 158 lb 4 oz 104/64 -???-???-???-???-??? -???-???-???-???-??? -???-???- 150 -???-???-???-???-??? -???-???-???-???-??? -???-???- SM- CRL cons 3 cm 07/16/24 -???-???-???-???-??? -???-???-???-???-??? -???-???- 13w 2d 161 lb 2 oz 104/65 -???-???-???-???-??? -???-???-???-???-??? -???-???- 150 -???-???-???-???-??? -???-???-???-???-??? -???-???- SM- no vb cr maping 08/11/24 -???-???-???-???-??? -???-???-???-???-??? -???-???- 17w 0d 162 lb 97/61 Negative -???-???-???-???-??? -???-???-???-???-??? -???-???- Negative 140 -???-???-???-???-??? -???-???-???-???-??? -???- (more content not included)... Normal [facility] Fire Equipment Repairer Inspector Office Visit Reporton 07-16-2024 Fire Equipment Repairer Inspector Office Visit Report [facility] [address], [address] [place] [address] OFFICE VISIT Date of Service: 07/16/24 MR#: [id number] Acct: [id number] Name: LINDSEY MCKEON Rep #: [id number] : 1990 Provider: Dr. Connie cid MD Age/Sex: 33/F [place] [facility] [place]: Signed Intake Vital Signs 05/22/23 09:38 06/18/24 13:12 07/16/24 08:43 Height 5 ft 3 in 5 ft 3 in 5 ft 3 in Weight: 158 lb 4 oz 161 lb 2 oz BMI 28.0 28.5 BP 104/64 104/65 Intake Visit Reasons: 13wk OB Mathematical Scientist Required: No Is patient in pain?: No Allergies No Known Allergies Allergy (Verified 07/16/24 08:45) Medications ???Medication ???Instructions ???Recorded ???Confirmed ???Type prenat.vits,rodríguez,min- iron-folic 1 tab PO DAILY 05/03/22 07/16/24 History ascorbic acid (vitamin C) 500 mg mg PO 05/22/23 07/16/24 History capsule cholecalciferol (vitamin D3) 25 25 mcg PO DAILY 05/22/23 07/16/24 History mcg (1,000 unit) capsule Last Menstrual Period: 04/14/24 Zika: Zika virus screening: Negative : No PFSH PFSH Medical History Vacuum extractor delivery, delivered Surgical History History of adenoidectomy Family History Father Extra digits extra pinky finger Mother Seizures Grandfather Cancer prostate Sister Extra digits extra toe on each foot Social History adopted: No household members: spouse housing: house 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: No pets and animals: No history of recent travel: No sexually active: Yes Smoking Status: Never smoker alcohol intake: never substance use type: does not use well-balanced diet: daily or most days caffeine: No eating out: rarely or never during the past year weight has: remained stable what type of physical activity do you participate in: walking and other details: home workouts frequency: 3-4 times per week duration: 30-45 minutes/day judi/oriental orthodox: Non-Jew/I ndependent seatbelt use: always do you feel safe at home: Yes additional social history: Spouse: Edward History 2 Elective abortions Hx Para 1 Spontaneous abortions Hx # Term Pregnancies 1 Ectopic pregnancies Hx # Pregnancies Multiple births # of living children 1 Past Pregnancies Del. Date Name GA/Weeks Outcome Route Bth Weight Gen Labor Lgth Anesthesia Del Sabi Provider FOB 12/15/22 Felicitasbelinda Reneee 39 live - full term vacuum 7#9oz Female epidural [facility] Steph Leon Delivery Date: 12/15/22 Last Updated by: Madeline Rothman vacuum extraction delivery tachycardia HPI 13wk OB Details: LINDSEY MCKEON is a 33 year old who presents for routine OB visit. OB Visit PETER Calculator Estimated Delivery Date Method Current WG Current Estimate 01/19/25 LMP (Certain) 13w 2d Other Estimates 01/16/25 Ultrasound #1 13w 5d Expected Delivery Route/Plan Labor Preferences- CB/BF classes: [] labor support person: [] labor intervention preferences: [] pain management options preferred: [] cut cord/dad catch: [] : [] PP control planned: [] discussed possible routes of delivery and associated risks: [] special requests: [] Specific Issue/Plans Covid status: [] Flu vaccine: [] Tdap vaccine: [] Rhogam: [] LARC form signed: [] Problem list reviewed and updated with the most current plan of care details and appropriate orders placed. Relevant counseling for the gestational age provided. Continue routine care and follow up unless otherwise noted in visit notes/problem list details Initial Weight: Not Recorded Date -???-???-???-???-??? -???-???-???-???-??? -???-???- EGA Weight BP Urine Prot -???-???-???-???-??? -???-???-???-???-??? -???-???- Glucose FHR FuHt Pres Dilation -???-???-???-???-??? -???-???-???-???-??? -???-???- Effaced St Visit Note 06/18/24 -???-???-???-???-??? -???-???-???-???-??? -???-???- 9w 2d 158 lb 4 oz 104/64 -???-???-???-???-??? -???-???-???-???-??? -???-???- 150 -???-???-???-???-??? -???-???-???-???-??? -???-???- SM- CRL cons 3 cm 07/16/24 -???-???-???-???-??? -???-???-???-???-??? -???-???- 13w 2d 161 lb 2 oz 104/65 -???-???-???-???-??? -???-???-???-???-??? -???-???- 150 -???-???-???-???-??? -???-???-???-???-??? -???-???- SM- no vb cr maping ACOG First Trimester First Trimester: Desire for , Alcohol, Tobacco Cessation, Illicit/Recreational Drug/Substance Use, Intimate Partner Violence, Barriers to care, Unst (more content not included)... Normal [facility] Chlamydia/GC CALVIN aptimaon CHLAMY,NUC ACID Negative Normal Negative [facility] Comment on above: Performed By: #### L 7000.1800, L509.4006, L3890.6301, L100.0100, L3890.6006, BTS, L3890.6102, M100.2200, L509.8002 ####[facility] [address] [place], [place], [id number] GC BY NUC ACID Negative Normal Negative [facility] Comment on above: Result Comment: Perf ormed at: =G - [facility] [address] [place] [id number] Ranch Helper: Cyndee Vazquez MD, Phone: [phone] Performed By: #### L 7000.1800, L509.4006, L3890.6301, L100.0100, L3890.6006, BTS, L3890.6102, M100.2200, L509.8002 ####[facility] [address] [place], [place], [id number] Urine Cultureon 06-21-2024 URC Mixed Gram Positive Organisms Stroud Count 1000-10,000 MIXC Mixed contaminants. Submit a new specimen if indicated. Normal [facility] Comment on above: Performed By: #### L 7000.1800, L509.4006, L3890.6301, L100.0100, L3890.6006, BTS, L3890.6102, M100.2200, L509.8002 ####[facility] [address] [place], [place], [id number] Absolute lymphocyte countOrd ered By: Connie Talavera on 06-18-2024 Lymphocytes Auto (Unsp spec) [#/Vol] 2.47 10*3/uL 0.83-4.51 [facility] Absolute neutrophil countOrd ered By: Connie Talavera on 06-18-2024 Neutrophils (Bld) [#/Vol] 7.0 10*3/uL 2.0-7.7 [facility] Automated lymphocyte count a s percentage of total leukocytesOrdered By: Connie Talavera on 06-18-2024 Lymphocytes/100 WBC Auto (Unsp spec) 23.4 % 19-41 [facility] Basophil percentageOrdered B y: Connie Talavera on 06-18-2024 Basophils/100 WBC (Bld) 0.6 % 0-1 [facility] CBC W/Diff, Automatedon 06-01 Absolute Lymph 2.47 X10 3/uL Normal 0.83-4.51 [facility] Comment on above: Performed By: #### L 7000.1800, L509.4006, L3890.6301, L100.0100, L3890.6006, BTS, L3890.6102, M100.2200, L509.8002 #### [facility] [address] [place], [address] Absolute Neut 7.0 X10 3/uL Normal 2.0-7.7 [facility] Comment on above: Performed By: #### L 7000.1800, L509.4006, L3890.6301, L100.0100, L3890.6006, BTS, L3890.6102, M100.2200, L509.8002 #### [facility] [address] [place], [address] Basophils/100 WBC (Bld) 0.6 % Normal 0-1 [facility] Comment on above: Performed By: #### L 7000.1800, L509.4006, L3890.6301, L100.0100, L3890.6006, BTS, L3890.6102, M100.2200, L509.8002 #### [facility] [address] [place], [address] Eosinophils/100 WBC (Bld) 2.1 % Normal 0-5 [facility] Comment on above: Performed By: #### L 7000.1800, L509.4006, L3890.6301, L100.0100, L3890.6006, BTS, L3890.6102, M100.2200, L509.8002 #### [facility] [address] [place], [address] Erythrocyte distribution width (RBC) [Ratio] 12.1 % Normal 11.6-14.6 [facility] Comment on above: Performed By: #### L 7000.1800, L509.4006, L3890.6301, L100.0100, L3890.6006, BTS, L3890.6102, M100.2200, L509.8002 #### [facility] [address] [place], [address] Hematocrit (Bld) [Volume fraction] 35.5 % Low 37-47 [facility] Comment on above: Performed By: #### L 7000.1800, L509.4006, L3890.6301, L100.0100, L3890.6006, BTS, L3890.6102, M100.2200, L509.8002 #### [facility] [address] [place], [address] Hemoglobin (Bld) [Mass/Vol] 12.2 g/dL Normal 12.0-15.0 [facility] Comment on above: Performed By: #### L 7000.1800, L509.4006, L3890.6301, L100.0100, L3890.6006, BTS, L3890.6102, M100.2200, L509.8002 #### [facility] [address] [place], [address] IG% 0.300 Normal 0.0-0.9 [facility] Comment on above: Result Comment: IG% - Immature Granulocytes (promyelocytes, myelocytes and metamyelocytes) > 1% indicates that a LEFT SHIFT is Present. Performed By: #### L 7000.1800, L509.4006, L3890.6301, L100.0100, L3890.6006, BTS, L3890.6102, M100.2200, L509.8002 #### [facility] [address] [place], [address] Lymphocytes/100 WBC (Bld) 23.4 % Normal 19-41 [facility] Comment on above: Performed By: #### L 7000.1800, L509.4006, L3890.6301, L100.0100, L3890.6006, BTS, L3890.6102, M100.2200, L509.8002 #### [facility] [address] [place], [address] MCH (RBC) [Entitic mass] 29.8 pg Normal 27.0-32.0 [facility] Comment on above: Performed By: #### L 7000.1800, L509.4006, L3890.6301, L100.0100, L3890.6006, BTS, L3890.6102, M100.2200, L509.8002 #### [facility] [address] [place], [address] MCHC (RBC) [Mass/Vol] 34.4 g/dL Normal 32-36 [facility] Comment on above: Performed By: #### L 7000.1800, L509.4006, L3890.6301, L100.0100, L3890.6006, BTS, L3890.6102, M100.2200, L509.8002 #### [facility] [address] [place], [address] MCV (RBC) [Entitic vol] 86.6 fL Normal 81-99 [facility] Comment on above: Performed By: #### L 7000.1800, L509.4006, L3890.6301, L100.0100, L3890.6006, BTS, L3890.6102, M100.2200, L509.8002 #### [facility] [address] [place], [address] Monocytes/100 WBC (Bld) 7.4 % Normal 0-10 [facility] Comment on above: Performed By: #### L 7000.1800, L509.4006, L3890.6301, L100.0100, L3890.6006, BTS, L3890.6102, M100.2200, L509.8002 #### [facility] [address] [place], [address] Neutrophils/100 WBC (Bld) 66.2 % Normal 47-70 [facility] Comment on above: Performed By: #### L 7000.1800, L509.4006, L3890.6301, L100.0100, L3890.6006, BTS, L3890.6102, M100.2200, L509.8002 #### [facility] [address] [place], [address] Nucleated RBC (Bld) [#/Vol] 0 10*3/uL Normal 0-5 [facility] Comment on above: Performed By: #### L 7000.1800, L509.4006, L3890.6301, L100.0100, L3890.6006, BTS, L3890.6102, M100.2200, L509.8002 #### [facility] [address] [place], [address] Platelet mean volume (Bld) [Entitic vol] 10.5 fL Normal 6.2-12.0 [facility] Comment on above: Performed By: #### L 7000.1800, L509.4006, L3890.6301, L100.0100, L3890.6006, BTS, L3890.6102, M100.2200, L509.8002 #### [facility] [address] [place], [address] Platelets (Bld) [#/Vol] 224 10*3/uL Normal 150-450 [facility] Comment on above: Performed By: #### L 7000.1800, L509.4006, L3890.6301, L100.0100, L3890.6006, BTS, L3890.6102, M100.2200, L509.8002 #### [facility] [address] [place], [address] RBC (Bld) [#/Vol] 4.10 10*6/uL Low 4.2-5.4 [facility] Comment on above: Performed By: #### L 7000.1800, L509.4006, L3890.6301, L100.0100, L3890.6006, BTS, L3890.6102, M100.2200, L509.8002 #### [facility] [address] [place], [address] RDW SD 38.6 fl Normal 35.1-43.9 [facility] Comment on above: Performed By: #### L 7000.1800, L509.4006, L3890.6301, L100.0100, L3890.6006, BTS, L3890.6102, M100.2200, L509.8002 #### [facility] [address] [place], [place], [id number] (071) WBC (Bld) [#/Vol] 10.6 10*3/uL Normal 4.4-11.0 [facility] Comment on above: Performed By: #### L 7000.1800, L509.4006, L3890.6301, L100.0100, L3890.6006, BTS, L3890.6102, M100.2200, L509.8002 #### [facility] [address] [place], [place], [id number] Chlamydia trachomatis rRNA d etection by probe and target amplification methodOrdered By: Connie Talavera on 06-18-2024 C. trachomatis rRNA CALVIN+probe Ql (Unsp spec) Negative Negative [facility] Eosinophil percentageOrdered By: Connie Talavera on 06-18-2024 Eosinophils/100 WBC (Bld) 2.1 % 0-5 [facility] Erythrocyte distribution wid th (RBC) [Ratio]Ordered By: Connie Talavera on 06-18-2024 Erythrocyte distribution width (RBC) [Entitic vol] 38.6 fL 35.1-43.9 [facility] Erythrocyte distribution wid th ratioOrdered By: Connie Susan on 06-18-2024 Erythrocyte distribution width (RBC) [Ratio] 12.1 % 11.6-14.6 [facility] Erythrocyte distribution wid th standard deviationOrdered By: Connie Talavera on 06-18-2024 Erythrocyte distribution width (RBC) [Ratio] 38.6 fl 35.1-43.9 [facility] HBV surface Ag Ql (S)Ordered By: Connie Talavera on 06-18-2024 Hepatitis B Surface Antigen Non-Reactive Nonreactive [facility] Comment on above: Reactive: Presumptiv e evidence of HBV. Repeatedly reactive samples must be confirmed using a neutralization test ([employer] HBsAg Confirmatory Test)Non-Reactive: HBsAg not detected; does not exclude the possibility of exposure to HBV HIVon 06-18-2024 HIV Non-Reactive Normal Nonreactive [facility] Comment on above: Result Comment: Non- Reactive Reactive Repeatedly reactive samples must be confirmed according to CDC recommended confirmatory algorithms. The subresults for either HIVAG or AHIV can be used as an aid in the selection of the confirmation algorithm for reactive samples. Send out specimens with Reactive results to [facility] for confirmation. Order the HIV antibody detection and differentiation: #[id number] Performed By: #### L 7000.1800, L509.4006, L3890.6301, L100.0100, L3890.6006, BTS, L3890.6102, M100.2200, L509.8002 ####[facility] [address] [place], [address] Hematocrit Auto (Bld) [Volum e fraction]Ordered By: Connie Talavera on 06-18-2024 Hematocrit (Bld) [Volume fraction] 35.5 % Low 37-47 [facility] Hemoglobin measurementOrdere d By: Connie Talavera on 06-18-2024 Hemoglobin (Bld) [Mass/Vol] 12.2 g/dL 12.0-15.0 [facility] Hepatitis C Antibodyon 06-18 Hepatitis C Ab Non-Reactive Normal Nonreactive [facility] Comment on above: Result Comment: Reac tive: Presumptive evidence of antibodies to HCV. Follow CDC recommendations for supplemental testing. Non-Reactive: Antibodies to HCV were not detected; does not exclude the possibility of exposure to HCV Reactive Results are presumptive evidence of antibodies to HCV. Follow CDC recommendations for supplemental testing. Order confirmation testing: HCV Quant by PCR testing - HCVPCR lc#[id number] Non Reactive: < 0.8 Equivocal: >/= 0.8 to < 1.0 Reactive: >/= 1.0 The CDC requires that a reactive/equivocal HCV antibody result be sent out for confirmation. HCV Quant by PCR testing. Performed By: #### L 7000.1800, L509.4006, L3890.6301, L100.0100, L3890.6006, BTS, L3890.6102, M100.2200, L509.8002 ####[facility] [address] [place], [address] Hepatitis C antibodyOrdered By: Connie Talavera on 06-18-2024 Hepatitis C Antibody Non-Reactive Nonreactive [facility] Comment on above: Reactive: Presumptiv e evidence of antibodies to HCV. Follow CDC recommendations for supplemental testing.Non-Reactive: Antibodies to HCV were not detected; does not exclude the possibility of exposure to HCVReactive Results are presumptive evidence of antibodies to HCV. Follow CDC recommendations for supplemental testing.Order confirmation testing: HCV Quant by PCR testing - HCVPCR lc#[id number] Non Reactive: < 0.8 Equivocal: >/= 0.8 to < 1.0 Reactive: >/= 1.0The CDC requires that a reactive/equivocal HCV antibody result be sent out for confirmation. HCV Quant by PCR testing. Immature granulocytes/100 WB C Auto (Bld)Ordered By: Connie Talavera on 06-18-2024 Immature granulocytes/100 WBC (Bld) 0.300 % 0.0-0.9 [facility] Comment on above: IG% - Immature Granu locytes (promyelocytes, myelocytes and metamyelocytes) > 1% indicates that a LEFT SHIFT is Present. L3890.6102on 06-18-2024 HEP B Surf Ag Non-Reactive Normal Nonreactive [facility] Comment on above: Result Comment: Reac tive: Presumptive evidence of HBV. Repeatedly reactive samples must be confirmed using a neutralization test ([employer] HBsAg Confirmatory Test) Non-Reactive: HBsAg not detected; does not exclude the possibility of exposure to HBV Performed By: #### L 7000.1800, L509.4006, L3890.6301, L100.0100, L3890.6006, BTS, L3890.6102, M100.2200, L509.8002 ####[facility] [address] [facility] [place], [address] L509.4006on 06-18-2024 Rubella IgG REAC Normal Nonreactive [facility] Comment on above: Result Comment: Anti body Result: Interpretation Non-Reactive: Non-Immune Reactive: Immune The following results were obtained with the [employer] Rubella IgG assay. Results from assays of other manufacturers cannot be used interchangeably. Performed By: #### L 7000.1800, L509.4006, L3890.6301, L100.0100, L3890.6006, BTS, L3890.6102, M100.2200, L509.8002 #### [facility] [address] [place], [place], [id number] Laboratory - Microbiology an d Antimicrobial susceptibilityOrdered By: Connie Talavera on 06-18-2024 HBV surface Ag Ql (S) Non-Reactive Nonreactive [facility] Comment on above: Reactive: Presumptiv e evidence of HBV. Repeatedly reactive samples must be confirmed using a neutralization test ([employer] HBsAg Confirmatory Test)Non-Reactive: HBsAg not detected; does not exclude the possibility of exposure to HBV Lymphocytes Auto (Unsp spec) [#/Vol]Ordered By: Connie Talavera on 06-18-2024 Lymphocytes (Bld) [#/Vol] 2.47 10*3/uL 0.83-4.51 [facility] Lymphocytes/100 WBC Auto (Un sp spec)Ordered By: Connie Talavera on 06-18-2024 Lymphocytes/100 WBC (Bld) 23.4 % 19-41 [facility] MCV (mean corpuscular volume ) determinationOrdered By: Connie Talavera on 06-18-2024 MCV (RBC) [Entitic vol] 86.6 fL 81-99 [facility] Mean corpuscular hemoglobin (MCH) determinationOrdered By: Connie Talavera on 06-18-2024 MCH (RBC) [Entitic mass] 29.8 pg 27.0-32.0 [facility] Mean corpuscular hemoglobin concentration (MCHC) determinationOrdered By: Connie Talavera on 06-18-2024 MCHC (RBC) [Mass/Vol] 34.4 g/dL 32-36 [facility] Mean platelet volume determi nationOrdered By: Connie Talavera on 06-18-2024 Platelet mean volume (Bld) [Entitic vol] 10.5 fL 6.2-12.0 [facility] Monocyte percentageOrdered B y: Connie Talavera on 06-18-2024 Monocytes/100 WBC (Bld) 7.4 % 0-10 [facility] Neisseria gonorrhoeae nuclei c acid detection by amplified probe techniqueOrdered By: Connie Talavera on 06-18-2024 N. gonorrhoeae DNA CALVIN+probe Ql (Unsp spec) Negative Negative [facility] Comment on above: Performed at: =[address] [id number] Director: Cyndee Vazquez MD, Phone: [phone] Neutrophil percentageOrdered By: Connie Talavera on 06-18-2024 Neutrophils/100 WBC (Bld) 66.2 % 47-70 [facility] No Panel InformationOrdered By: Connie Talavera on 06-18-2024 HIV (1&2) Antibody Non-Reactive Nonreactive [facility] Comment on above: Non-ReactiveReactive Repeatedly reactive samples must be confirmed according to CDC recommended confirmatory algorithms. The subresults for either HIVAG or AHIV can be used as an aid in the selection of the confirmation algorithm for reactive samples.Send out specimens with Reactive results to [facility] for confirmation.Order the HIV antibody detection and differentiation: #[id number] Nucleated red blood cell per centageOrdered By: Connie Talavera on 06-18-2024 Nucleated RBC/100 WBC (Bld) [Ratio] 0 % 0-5 [facility] Fire Equipment Repairer Inspector Office Visit Reporton 06-18-2024 Fire Equipment Repairer Inspector Office Visit Report [facility] [address], [address] [place] [address] OFFICE VISIT Date of Service: 06/18/24 MR#: [id number] Acct: [id number] Name: LINDSEY MCKEON Rep #: [id number] : 1990 Provider: Dr. Connie cid MD Age/Sex: 33/F [place] [facility] [place]: [place] Intake Vital Signs 05/22/23 09:38 06/18/24 13:12 Height 5 ft 3 in 5 ft 3 in Weight: 158 lb 4 oz BMI 28.0 BP 104/64 Intake Visit Reasons: New OB, LMP 04/14, PETER 01/19 Mathematical Scientist Required: No Is patient in pain?: No Allergies No Known Allergies Allergy (Verified 06/18/24 13:13) Medications ???Medication ???Instructions ???Recorded ???Confirmed ???Type prenat.vits,rodríguez,min- iron-folic 1 tab PO DAILY 05/03/22 05/22/23 History ascorbic acid (vitamin C) 500 mg mg PO 05/22/23 05/22/23 History capsule cholecalciferol (vitamin D3) 25 25 mcg PO DAILY 05/22/23 05/22/23 History mcg (1,000 unit) capsule Last Menstrual Period: 04/14/24 Zika: Zika virus screening: Negative : No PFSH PFSH Medical History Vacuum extractor delivery, delivered Surgical History History of adenoidectomy Family History Father Extra digits extra pinky finger Mother Seizures Grandfather Cancer prostate Sister Extra digits extra toe on each foot Social History adopted: No household members: spouse housing: house 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: No pets and animals: No history of recent travel: No sexually active: Yes Smoking Status: Never smoker alcohol intake: never substance use type: does not use well-balanced diet: daily or most days caffeine: No eating out: rarely or never during the past year weight has: remained stable what type of physical activity do you participate in: walking and other details: home workouts frequency: 3-4 times per week duration: 30-45 minutes/day judi/oriental orthodox: Non-Jew/I ndependent seatbelt use: always do you feel safe at home: Yes additional social history: Spouse: Edward History 2 Elective abortions Hx Para 1 Spontaneous abortions Hx # Term Pregnancies 1 Ectopic pregnancies Hx # Pregnancies Multiple births # of living children 1 Past Pregnancies Del. Date Name GA/Weeks Outcome Route Bth Weight Infant Gen Labor Lgth Anesthesia Del Locatn Provider FOB 12/15/22 Felicitas Breaux 39 live - full term vacuum 7#9oz Female epidural WC Steph Leon Delivery Date: 12/15/22 Last Updated by: Madeline Rothman vacuum extraction delivery tachycardia HPI New OB, LMP 04/14, PETER 01/19 Details: LINDSEY MCKEON is a 33 year old who presents for New OB visit. OB Visit PETER Calculator Estimated Delivery Date Method Current WG Current Estimate 01/19/25 LMP (Certain) 9w 2d Other Estimates 01/16/25 Ultrasound #1 9w 5d Comments: HIV: Urine Culture: Sequential Screen: NIPT Screen: Estimated Due Date: 01/19/25 Expected Delivery Route/Plan Labor Preferences- CB/BF classes: [] labor support person: [] labor intervention preferences: [] pain management options preferred: [] cut cord/dad catch: [] : [] PP control planned: [] discussed possible routes of delivery and associated risks: [] special requests: [] Specific Issue/Plans Covid status: [] Flu vaccine: [] Tdap vaccine: [] Rhogam: [] LARC form signed: [] Problem list reviewed and updated with the most current plan of care details and appropriate orders placed. Relevant counseling for the gestational age provided. Continue routine care and follow up unless otherwise noted in visit notes/problem list details Initial Weight: Not Recorded Date -???-???-???-???-??? -???-???-???-???-??? -???-???- EGA Weight BP Urine Prot -???-???-???-???-??? -???-???-???-???-??? -???-???- Glucose FHR FuHt Pres Dilation -???-???-???-???-??? -???-???-???-???-??? -???-???- Effaced St Visit Note 06/18/24 -???-???-???-???-??? -???-???-???-???-??? -???-???- 9w 2d 158 lb 4 oz 104/64 -???-???-???-???-??? -???-???-???-???-??? -???-???- 150 -???-???-???-???-??? -???-???-???-???-??? -???-???- SM- CRL cons 3 cm Menstrual History Last Menstrual Period: 04/14/24 Reported LMP: definite Normal amount/duration: Yes Frequency in days: 28 On hormonal BC at conception: No hCG+: 05/12/24 Antepartum Record Genetic Screening: Congenital Heart Defect: Other, Neural Tube Defect: Other, Hemoglobinopathy Or Carrier: Other, Cyst (more content not included)... Normal [facility] Platelet countOrdered By: Evens Talavera on 06-18-2024 Platelets (Bld) [#/Vol] 224 10*3/uL 150-450 [facility] RBC Auto (Bld) [#/Vol]Ordere d By: Connie Talavera on 06-18-2024 RBC (Bld) [#/Vol] 4.10 10*6/uL Low 4.2-5.4 [facility] Rubella immune status determ ination by IgG antibody assayOrdered By: Connie Talavera on 06-18-2024 Rubella IgG Antibody REAC Nonreactive [facility] Comment on above: Antibody Result: Int erpretationNon-Reactive: Non-ImmuneReactive: ImmuneThe following results were obtained with the [employer] Rubella IgG assay. Results from assays of other manufacturers cannot be used interchangeably. Syphilis Antibodieson 2024 Syphilis Abs Non-Reactive Normal Nonreactive [facility] Comment on above: Performed By: #### L 7000.1800, L509.4006, L3890.6301, L100.0100, L3890.6006, BTS, L3890.6102, M100.2200, L509.8002 #### [facility] Laboratory [address] [place], [address] T. pallidum abOrdered By: Evens Talavera on 06-18-2024 Syphilis Total Antibody Non-Reactive Nonreactiv e [facility] Type AND Screenon 06-18-2024 Ab SCREEN GEL Negative Normal [facility] Comment on above: Order Comment: PN Performed By: #### L 7000.1800, L509.4006, L3890.6301, L100.0100, L3890.6006, BTS, L3890.6102, M100.2200, L509.8002 #### [facility] [address] [place], [place], [id number] ABO and Rh group Nom (Bld) Blood group A Rh(D) positive Normal [facility] Comment on above: Order Comment: PN Performed By: #### L 7000.1800, L509.4006, L3890.6301, L100.0100, L3890.6006, BTS, L3890.6102, M100.2200, L509.8002 #### [facility] [address] [place], [place], [id number] Urine cultureOrdered By: Sawyer Talavera on 06-18-2024 Bacteria identified Cx Nom (U) Positive Abnormal [facility] White blood cell (WBC) count Ordered By: Connie Talavera on 06-18-2024 WBC (Bld) [#/Vol] 10.6 10*3/uL 4.4-11.0 [facility] Absolute lymphocyte countOrd ered By: Geneva Velasco on 12-17-2022 Lymphocytes Auto (Unsp spec) [#/Vol] 2.49 10*3/uL 0.83-4.51 [facility] Basophil percentageOrdered B y: Geneva Velasco on 12-17-2022 Basophils/100 WBC (Bld) 0.5 % 0-1 [facility] Eosinophils/100 WBC (Bld) 1.8 % 0-5 [facility] Neutrophils (Bld) [#/Vol] 11.1 10*3/uL 2.0-7.7 [facility] Neutrophils/100 WBC (Bld) 73.3 % 47-70 [facility] WBC (Bld) [#/Vol] 15.1 10*3/uL 4.4-11.0 [facility] Blood erythrocytes count (nu mber/volume)Ordered By: Geneva Velasco on 12-17-2022 RBC (Bld) [#/Vol] 2.88 10*6/uL 4.2-5.4 [facility] Blood hemoglobin measurement (mass/volume)Ordered By: Geneva Velasco on 12-17-2022 Hemoglobin (Bld) [Mass/Vol] 8.8 g/dL 12.0-15.0 [facility] Blood lymphocytes/100 leukoc ytesOrdered By: Geneva Velasco on 12-17-2022 Lymphocytes/100 WBC (Bld) 16.5 % 19-41 [facility] Blood monocytes/100 leukocyt esOrdered By: Geneva Velasco on 12-17-2022 Monocytes/100 WBC (Bld) 7.1 % 0-10 [facility] Blood platelet mean volumeOr dered By: Geneva Velasco on 12-17-2022 Platelet mean volume (Bld) [Entitic vol] 10.0 fL 6.2-12.0 [facility] Determination of erythrocyte mean corpuscular volume (MCV)Ordered By: Geneva Velasco on 12-17-2022 MCV (RBC) [Entitic vol] 93.4 fL 81-99 [facility] Hematocrit Auto (Bld) [Volum e fraction]Ordered By: Geneva Velasco on 12-17-2022 Hematocrit (Bld) [Volume fraction] 26.9 % 37-47 [facility] Laboratory - Hematology and Cell countsOrdered By: Geneva Velasco on 12-17-2022 Erythrocyte distribution width (RBC) [Entitic vol] 44.2 fL 35.1-43.9 [facility] Erythrocyte distribution width (RBC) [Ratio] 12.9 % 11.6-14.6 [facility] Immature granulocytes/100 WBC (Bld) 0.800 % 0.0-0.9 [facility] Comment on above: IG% - Immature Granu locytes (promyelocytes, myelocytes and metamyelocytes) > 1% indicates that a LEFT SHIFT is Present. MCH (RBC) [Entitic mass] 30.6 pg 27.0-32.0 [facility] Nucleated RBC/100 WBC (Bld) [Ratio] 0 % 0-5 [facility] MCHC Auto (RBC) [Mass/Vol]Or dered By: Geneva Velasco on 12-17-2022 MCHC (RBC) [Mass/Vol] 32.7 g/dL 32-36 [facility] Platelets bldOrdered By: Shoshana Velasco on 12-17-2022 Platelets (Bld) [#/Vol] 150 10*3/uL 150-450 [facility] Review by pathologistOrdered By: Allison De Souza on 12-16-2022 Pathologist review Damaso (Unsp spec) [Interp] Reviewed [facility] Comment on above: Previous reported re sult: Awilda beltre Edited by: RGOCONSTANTINO on 12/17/22:0957Neutrophilic leukocytosis.Normocytic anemia.Clinical correlation necessary.Axel Leija M.D. 12/17/22 AMENDED REPORT 12/17/22 0957 PATH REV previously reported as: Awilda beltre Blood manual differential co mment interpretation (narrative result)Ordered By: Allison De Souza on 12-15-2022 Manual differential comment Damaso (Bld) [Interp] SCANNED [facility] No Panel InformationOrdered By: Gabrielle Garcia on 12-15-2022 Vaginal Amniotic Fluid Detection Positive Negative [facility] Comment on above: Amniotic fluid prese nt indicates rupture of Membranes. RESULTS CALLED TO Campos SANDOVAL RN () 12/15/22 0450 Serafin Parsons.REPORT READ BACK BY SAME . Serum Treponema species anti body detectionOrdered By: Gabrielle Garcia on 12-15-2022 Treponema sp Ab Ql (S) Non-Reactive [facility] No Panel InformationOrdered By: Gabrielle Garcia on 12-14-2022 Vaginal Amniotic Fluid Detection Negative Negative [facility] Comment on above: Amniotic fluid not p resent indicates No Rupture of FetalMembranes at time of specimen collection. Laboratory - Chemistry and C hemistry - challengeon 12-12-2022 Glucose Ql (U) Negative [facility] Laboratory - Urinalysison Protein Ql (U) Negative [facility] Laboratory - Chemistry and C hemistry - challengeon 12-06-2022 Glucose Ql (U) Negative [facility] Laboratory - Urinalysison Protein Ql (U) Negative [facility] Laboratory - Chemistry and C hemistry - challengeon 11-29-2022 Glucose Ql (U) Negative [facility] Laboratory - Urinalysison Protein Ql (U) Negative [facility] Laboratory - Chemistry and C hemistry - challengeon 11-22-2022 Glucose Ql (U) Negative [facility] Laboratory - Urinalysison Protein Ql (U) Negative [facility] No Panel InformationOrdered By: Allison De Souza on 11-22-2022 Group B Streptococcus Culture Group B Beta Streptococcus is not isolated. [facility] Laboratory - Chemistry and C hemistry - challengeon 11-08-2022 Glucose Ql (U) Negative [facility] Laboratory - Urinalysison Protein Ql (U) Negative [facility] Absolute lymphocyte countOrd ered By: Geneva Velasco on 10-25-2022 Lymphocytes Auto (Unsp spec) [#/Vol] 2.18 10*3/uL 0.83-4.51 [facility] Basophil percentageOrdered B y: Geneva Velasco on 10-25-2022 Basophils/100 WBC (Bld) 0.5 % 0-1 [facility] Eosinophils/100 WBC (Bld) 1.8 % 0-5 [facility] Neutrophils (Bld) [#/Vol] 9.2 10*3/uL 2.0-7.7 [facility] Neutrophils/100 WBC (Bld) 70.8 % 47-70 [facility] WBC (Bld) [#/Vol] 13.1 10*3/uL 4.4-11.0 [facility] Blood erythrocytes count (nu mber/volume)Ordered By: Geneva Velasco on 10-25-2022 RBC (Bld) [#/Vol] 3.82 10*6/uL 4.2-5.4 [facility] Blood hemoglobin measurement (mass/volume)Ordered By: Geneva Velasco on 10-25-2022 Hemoglobin (Bld) [Mass/Vol] 11.7 g/dL 12.0-15.0 [facility] Blood lymphocytes/100 leukoc ytesOrdered By: Geneva Velasco on 10-25-2022 Lymphocytes/100 WBC (Bld) 16.7 % 19-41 [facility] Blood monocytes/100 leukocyt esOrdered By: Geneva Velasco on 10-25-2022 Monocytes/100 WBC (Bld) 8.7 % 0-10 [facility] Blood platelet mean volumeOr dered By: Geneva Velasco on 10-25-2022 Platelet mean volume (Bld) [Entitic vol] 9.1 fL 6.2-12.0 [facility] Determination of erythrocyte mean corpuscular volume (MCV)Ordered By: Geneva Velasco on 10-25-2022 MCV (RBC) [Entitic vol] 93.5 fL 81-99 [facility] Hematocrit Auto (Bld) [Volum e fraction]Ordered By: Geneva Velasco on 10-25-2022 Hematocrit (Bld) [Volume fraction] 35.7 % 37-47 [facility] Laboratory - Chemistry and C hemistry - challengeon 10-25-2022 Glucose Ql (U) Negative [facility] Laboratory - Hematology and Cell countsOrdered By: Geneva Velasco on 10-25-2022 Erythrocyte distribution width (RBC) [Entitic vol] 42.2 fL 35.1-43.9 [facility] Erythrocyte distribution width (RBC) [Ratio] 12.4 % 11.6-14.6 [facility] Immature granulocytes/100 WBC (Bld) 1.500 % 0.0-0.9 [facility] Comment on above: IG% - Immature Granu locytes (promyelocytes, myelocytes and metamyelocytes) > 1% indicates that a LEFT SHIFT is Present. MCH (RBC) [Entitic mass] 30.6 pg 27.0-32.0 [facility] Nucleated RBC/100 WBC (Bld) [Ratio] 0 % 0-5 [facility] Laboratory - Urinalysison Protein Ql (U) Negative [facility] MCHC Auto (RBC) [Mass/Vol]Or dered By: Geneva Velasco on 10-25-2022 MCHC (RBC) [Mass/Vol] 32.8 g/dL 32-36 [facility] Platelets bldOrdered By: Shoshana Velasco on 10-25-2022 Platelets (Bld) [#/Vol] 209 10*3/uL 150-450 [facility] Laboratory - Chemistry and C hemistry - challengeon 10-11-2022 Glucose Ql (U) Negative [facility] Laboratory - Urinalysison Protein Ql (U) Negative [facility] Absolute lymphocyte countOrd ered By: Geneva Velasco on 09-27-2022 Lymphocytes Auto (Unsp spec) [#/Vol] 1.89 10*3/uL 0.83-4.51 [facility] Basophil percentageOrdered B y: Geneva Velasco on 09-27-2022 Basophils/100 WBC (Bld) 0.4 % 0-1 [facility] Eosinophils/100 WBC (Bld) 1.4 % 0-5 [facility] Neutrophils (Bld) [#/Vol] 9.1 10*3/uL 2.0-7.7 [facility] Neutrophils/100 WBC (Bld) 74.1 % 47-70 [facility] WBC (Bld) [#/Vol] 12.3 10*3/uL 4.4-11.0 [facility] Blood erythrocytes count (nu mber/volume)Ordered By: Geneva Velasco on 09-27-2022 RBC (Bld) [#/Vol] 3.46 10*6/uL 4.2-5.4 [facility] Blood hemoglobin measurement (mass/volume)Ordered By: Geneva Velasco on 09-27-2022 Hemoglobin (Bld) [Mass/Vol] 10.6 g/dL 12.0-15.0 [facility] Blood lymphocytes/100 leukoc ytesOrdered By: Geneva Velasco on 09-27-2022 Lymphocytes/100 WBC (Bld) 15.4 % 19-41 [facility] Blood monocytes/100 leukocyt esOrdered By: Geneva Velasco on 09-27-2022 Monocytes/100 WBC (Bld) 7.6 % 0-10 [facility] Blood platelet mean volumeOr dered By: Geneva Velasco on 09-27-2022 Platelet mean volume (Bld) [Entitic vol] 9.5 fL 6.2-12.0 [facility] Determination of erythrocyte mean corpuscular volume (MCV)Ordered By: Geneva Velasco on 09-27-2022 MCV (RBC) [Entitic vol] 93.6 fL 81-99 [facility] Gestational diabetes screen 1-hour screen with 50g oral glucose loadOrdered By: Geneva Velasco on 09-27-2022 Glucose 1 Hr post 50 g glucose PO [Mass/Vol] 79 mg/dL 70-140 [facility] HIV 1 and HIV-2 antibody ass ay with HIV-1 p24 antigen detectionOrdered By: Geneva Velasco on 09-27-2022 HIV 1+2 Ab+HIV1 p24 Ag IA Ql Non-Reactive Nonreactive [facility] Hematocrit Auto (Bld) [Volum e fraction]Ordered By: Geneva Velasco on 09-27-2022 Hematocrit (Bld) [Volume fraction] 32.4 % 37-47 [facility] Laboratory - Chemistry and C hemistry - challengeon 09-27-2022 Glucose Ql (U) Negative [facility] Laboratory - Hematology and Cell countsOrdered By: Geneva Velasco on 09-27-2022 Erythrocyte distribution width (RBC) [Entitic vol] 42.5 fL 35.1-43.9 [facility] Erythrocyte distribution width (RBC) [Ratio] 12.4 % 11.6-14.6 [facility] Immature granulocytes/100 WBC (Bld) 1.100 % 0.0-0.9 [facility] Comment on above: IG% - Immature Granu locytes (promyelocytes, myelocytes and metamyelocytes) > 1% indicates that a LEFT SHIFT is Present. MCH (RBC) [Entitic mass] 30.6 pg 27.0-32.0 [facility] Nucleated RBC/100 WBC (Bld) [Ratio] 0 % 0-5 [facility] Laboratory - Urinalysison Protein Ql (U) Negative [facility] MCHC Auto (RBC) [Mass/Vol]Or dered By: Geneva Velasco on 09-27-2022 MCHC (RBC) [Mass/Vol] 32.7 g/dL 32-36 [facility] Platelets bldOrdered By: Shoshana Velasco on 09-27-2022 Platelets (Bld) [#/Vol] 212 10*3/uL 150-450 [facility] Serum Treponema species anti body detectionOrdered By: Geneva Velasco on 09-27-2022 Treponema sp Ab Ql (S) Non-Reactive [facility] Laboratory - Chemistry and C hemistry - challengeon 08-30-2022 Glucose Ql (U) Negative [facility] Laboratory - Urinalysison Protein Ql (U) Negative [facility] Laboratory - Chemistry and C hemistry - challengeon 08-02-2022 Glucose Ql (U) Negative [facility] Laboratory - Urinalysison Protein Ql (U) Negative [facility] Laboratory - Chemistry and C hemistry - challengeon 07-05-2022 Glucose Ql (U) Negative [facility] Laboratory - Urinalysison Protein Ql (U) Negative [facility] Laboratory - Chemistry and C hemistry - challengeon 06-07-2022 Glucose Ql (U) Negative [facility] Laboratory - Urinalysison Protein Ql (U) Negative [facility] Absolute lymphocyte countOrd ered By: Dr. De Souza on 05-24-2022 Lymphocytes Auto (Unsp spec) [#/Vol] 1.91 10*3/uL 0.83-4.51 [facility] Basophil percentageOrdered B y: Dr. De Souza on 05-24-2022 Basophils/100 WBC (Bld) 0.4 % 0-1 [facility] Eosinophils/100 WBC (Bld) 1.7 % 0-5 [facility] Neutrophils (Bld) [#/Vol] 6.5 10*3/uL 2.0-7.7 [facility] Neutrophils/100 WBC (Bld) 69.5 % 47-70 [facility] WBC (Bld) [#/Vol] 9.3 10*3/uL 4.4-11.0 [facility] Blood erythrocytes count (nu mber/volume)Ordered By: Dr. De Souza on 05-24-2022 RBC (Bld) [#/Vol] 3.92 10*6/uL 4.2-5.4 [facility] Blood hemoglobin measurement (mass/volume)Ordered By: Dr. De Souza on 05-24-2022 Hemoglobin (Bld) [Mass/Vol] 11.8 g/dL 12.0-15.0 [facility] Blood lymphocytes/100 leukoc ytesOrdered By: Dr. De Souza on 05-24-2022 Lymphocytes/100 WBC (Bld) 20.5 % 19-41 [facility] Blood monocytes/100 leukocyt esOrdered By: Dr. De Souza on 05-24-2022 Monocytes/100 WBC (Bld) 7.5 % 0-10 [facility] Blood platelet mean volumeOr dered By: Dr. De Souza on 05-24-2022 Platelet mean volume (Bld) [Entitic vol] 9.8 fL 6.2-12.0 [facility] Determination of erythrocyte mean corpuscular volume (MCV)Ordered By: Dr. De Souza on 05-24-2022 MCV (RBC) [Entitic vol] 89.3 fL 81-99 [facility] HIV 1 and HIV-2 antibody ass ay with HIV-1 p24 antigen detectionOrdered By: Dr. De Souza on 05-24-2022 HIV 1+2 Ab+HIV1 p24 Ag IA Ql Non-Reactive Nonreactive [facility] Hematocrit Auto (Bld) [Volum e fraction]Ordered By: Dr. De Souza on 05-24-2022 Hematocrit (Bld) [Volume fraction] 35.0 % 37-47 [facility] Laboratory - Hematology and Cell countsOrdered By: Dr. De Souza on 05-24-2022 Erythrocyte distribution width (RBC) [Entitic vol] 40.6 fL 35.1-43.9 [facility] Erythrocyte distribution width (RBC) [Ratio] 12.3 % 11.6-14.6 [facility] Immature granulocytes/100 WBC (Bld) 0.400 % 0.0-0.9 [facility] Comment on above: IG% - Immature Granu locytes (promyelocytes, myelocytes and metamyelocytes) > 1% indicates that a LEFT SHIFT is Present. MCH (RBC) [Entitic mass] 30.1 pg 27.0-32.0 [facility] Nucleated RBC/100 WBC (Bld) [Ratio] 0 % 0-5 [facility] MCHC Auto (RBC) [Mass/Vol]Or dered By: Dr. De Souza on 05-24-2022 MCHC (RBC) [Mass/Vol] 33.7 g/dL 32-36 [facility] No Panel InformationOrdered By: Dr. De Souza on 05-24-2022 Hepatitis B Surface Antigen Non-Reactive Nonreactive [facility] Hepatitis C Antibody Non-Reactive Nonreactive [facility] Comment on above: Non Reactive: < 0.8 Equivocal: >/= 0.8 to < 1.0 Reactive: >/= 1.0The CDC recommends that a reactive/equivocal HCV antibody result be followed up by the HCV Nucleic Acid Amplificationtest (241438) Miscellaneous Test Comment MAILED SPECIMEN [facility] Rubella IgG Antibody Reactive Nonreactive [facility] Comment on above: Antibody Results Int erpretation of Immune Status Non Reactive Presumed Non-Immune Equivocal Equivocal Reactive Presumed Immune Platelets bldOrdered By: Dr. De Souza on 05-24-2022 Platelets (Bld) [#/Vol] 200 10*3/uL 150-450 [facility] Serum Treponema species anti body detectionOrdered By: Dr. De Souza on 05-24-2022 Treponema sp Ab Ql (S) Non-Reactive [facility] Culture, urineOrdered By: Dr Bernice De Souza on 05-11-2022 Bacteria identified Cx Nom (U) Culture exhibits no growth. [facility] Cervical or vagninal specime n microscopic examination by cytology stain (reported asOrdered By: Dr. De Souza on 05-09-2022 Cytology report Cyto stain Doc (Cvx/Vag) Comment . [facility] Comment on above: The Pap smear is a s creening test designed to aid in thedetection of premalignant and malignant conditions of theuterine cervix. It is not a diagnostic procedure andshould not be used as the sole means of detecting cervicalcancer. Both false-positive and false-negative reports dooccur. Chlamydia trachomatis rRNA d etection by probe and target amplification methodOrdered By: Dr. De Souza on 05-09-2022 C. trachomatis rRNA CALVIN+probe Ql (Unsp spec) Negative Negative [facility] Detection in cervical specim en of any of human papilloma virus (HPV) 16, 18, 31, 33,Ordered By: Dr. De Souza on 05-09-2022 HPV 16+18+31+33+35+39+45+51+ 52+56+58+59+66+68 DNA Probe+sig amp Ql (Cvx) Negative Negative [facility] Comment on above: This nucleic acid am plification test detects fourteen high-risk HPV types (16,18,31,33,35,39,45,51,52,56,58,59,66,68)without differentiation. Laboratory - CytologyOrdered By: Dr. De Souza on 05-09-2022 Carton Inspector Cyto stain Nom (Cvx/Vag) [ID] Comment . [facility] Comment on above: Elise Richardson, [employer] hnologist (ASCP) Laboratory - Microbiology an d Antimicrobial susceptibilityOrdered By: Dr. De Souza on 05-09-2022 N. gonorrhoeae DNA CALVIN+probe Ql (Unsp spec) Negative Negative [facility] Comment on above: Performed at: =[address] [id number] Director: Cyndee Vazquez MD, Phone: [phone] Laboratory - Miscellaneous t estsOrdered By: Dr. De Souza on 05-09-2022 Service comment (Unsp spec) [Interp] Comment . [facility] Comment on above: This liquid based Th inPrep(R) pap test was screened withthe use of an image guided system. Service comment (Unsp spec) [Interp] . . [facility] Liquid-based cerv Pap + CT/G C by CALVIN w reflex to high-risk HPV for ASCUSOrdered By: Dr. De Souza on 05-09-2022 Cytology report Cyto stain.thin prep Doc (Cvx/Vag) Comment . [facility] Comment on above: Criteria not met, HP V Genotype not performed.Performed at: [facility] [id number] Director: Cyndee Vazquez MD, Phone: [phone] at: =[facility] - [facility] [address] [id number] Director: Cyndee Vazquez MD, Phone: [phone] No Panel InformationOrdered By: Dr. De Souza on 05-09-2022 Pathology report final diagnosis Narrative Comment . [facility] Comment on above: NEGATIVE FOR INTRAEP ITHELIAL LESION OR MALIGNANCY. Vital Signs Date Time Vital Sign Value Performing Clinician Lakeisha ferrara 09-06-2024 14:30-0400 Body height 160.02 cm No Primary Care Physician [facility] 09-06-2024 14:30-0400 Body mass index (BMI) [Ratio] 29.2 kg/m2 No Primary Care Physician [facility] 09-06-2024 14:30-0400 Body weight 74.89 kg No Primary Care Physician [facility] 09-06-2024 14:30-0400 Diastolic blood pressure 69 mm[Hg] No Primary Care Physician [facility] 09-06-2024 14:30-0400 Systolic blood pressure 105 mm[Hg] No Primary Care Physician [facility] 08-30-2024 22:15-0400 Body temperature 97.8 [degF] No Primary Care Physician [facility] 08-30-2024 22:15-0400 Diastolic blood pressure 74 mm[Hg] No Primary Care Physician [facility] 08-30-2024 22:15-0400 Heart rate 78 /min No Primary Care Physician [facility] 08-30-2024 22:15-0400 Respiratory rate 16 /min No Primary Care Physician [facility] 08-30-2024 22:15-0400 SaO2% (BldA) [Mass fraction] 99 % No Primary Care Physician [facility] 08-30-2024 22:15-0400 Systolic blood pressure 124 mm[Hg] No Primary Care Physician [facility] 08-30-2024 16:25-0400 Body height 160.02 cm No Primary Care Physician [facility] 08-30-2024 16:25-0400 Body mass index (BMI) [Ratio] 28.5 kg/m2 No Primary Care Physician [facility] 08-30-2024 16:25-0400 Body weight 73.02 kg No Primary Care Physician [facility] 08-11-2024 10:40-0400 Body height 160.02 cm No Primary Care Physician [facility] 08-11-2024 10:40-0400 Body mass index (BMI) [Ratio] 28.7 kg/m2 No Primary Care Physician [facility] 08-11-2024 10:40-0400 Body weight 73.48 kg No Primary Care Physician [facility] 08-11-2024 10:40-0400 Diastolic blood pressure 61 mm[Hg] No Primary Care Physician [facility] 08-11-2024 10:40-0400 Systolic blood pressure 97 mm[Hg] No Primary Care Physician [facility] 07-16-2024 08:43-0400 Body height 160.02 cm No Primary Care Physician [facility] 07-16-2024 08:43-0400 Body mass index (BMI) [Ratio] 28.5 kg/m2 No Primary Care Physician [facility] 07-16-2024 08:43-0400 Body weight 73.08 kg No Primary Care Physician [facility] 07-16-2024 08:43-0400 Diastolic blood pressure 65 mm[Hg] No Primary Care Physician [facility] 07-16-2024 08:43-0400 Systolic blood pressure 104 mm[Hg] No Primary Care Physician [facility] 06-18-2024 13:12-0400 Body height 160.02 cm No Primary Care Physician [facility] 06-18-2024 13:12-0400 Body mass index (BMI) [Ratio] 28 kg/m2 No Primary Care Physician [facility] 06-18-2024 13:12-0400 Body weight 71.78 kg No Primary Care Physician [facility] 06-18-2024 13:12-0400 Diastolic blood pressure 64 mm[Hg] No Primary Care Physician [facility] 06-18-2024 13:12-0400 Systolic blood pressure 104 mm[Hg] No Primary Care Physician [facility] 12-17-2022 10:00-0400 Body temperature 97.6 [degF] No Primary Care Physician [facility] 12-17-2022 10:00-0400 Diastolic blood pressure 57 mm[Hg] No Primary Care Physician [facility] 12-17-2022 10:00-0400 Heart rate 75 /min No Primary Care Physician [facility] 12-17-2022 10:00-0400 Respiratory rate 16 /min No Primary Care Physician [facility] 12-17-2022 10:00-0400 Systolic blood pressure 98 mm[Hg] No Primary Care Physician [facility] 12-16-2022 13:39-0400 SaO2% (BldA) [Mass fraction] 100 % No Primary Care Physician [facility] 12-15-2022 04:16-0400 Body height 160.02 cm No Primary Care Physician [facility] 12-15-2022 04:16-0400 Body mass index (BMI) [Ratio] 32.9 kg/m2 No Primary Care Physician [facility] 12-15-2022 04:16-0400 Body weight 84.36 kg No Primary Care Physician [facility] 12-14-2022 23:19-0400 Body height 160.02 cm No Primary Care Physician [facility] 12-14-2022 23:19-0400 Body mass index (BMI) [Ratio] 33.1 kg/m2 No Primary Care Physician [facility] 12-14-2022 23:19-0400 Body weight 84.82 kg No Primary Care Physician [facility] 12-12-2022 08:59-0400 Body mass index (BMI) [Ratio] 33 kg/m2 No Primary Care Physician [facility] 12-12-2022 08:59-0400 Body weight 84.48 kg No Primary Care Physician [facility] 12-12-2022 08:59-0400 Diastolic blood pressure 62 mm[Hg] No Primary Care Physician [facility] 12-12-2022 08:59-0400 Systolic blood pressure 90 mm[Hg] No Primary Care Physician [facility] 12-06-2022 10:06-0400 Body mass index (BMI) [Ratio] 32.5 kg/m2 No Primary Care Physician [facility] 12-06-2022 10:06-0400 Body weight 83.51 kg No Primary Care Physician [facility] 12-06-2022 10:06-0400 Diastolic blood pressure 62 mm[Hg] No Primary Care Physician [facility] 12-06-2022 10:06-0400 Systolic blood pressure 100 mm[Hg] No Primary Care Physician [facility] 11-29-2022 09:15-0400 Body mass index (BMI) [Ratio] 32.3 kg/m2 No Primary Care Physician [facility] 11-29-2022 09:15-0400 Body weight 82.72 kg No Primary Care Physician [facility] 11-29-2022 09:15-0400 Diastolic blood pressure 62 mm[Hg] No Primary Care Physician [facility] 11-29-2022 09:15-0400 Systolic blood pressure 102 mm[Hg] No Primary Care Physician [facility] 11-22-2022 08:46-0400 Body height 160.02 cm No Primary Care Physician [facility] 11-22-2022 08:43-0400 Body mass index (BMI) [Ratio] 31.6 kg/m2 No Primary Care Physician [facility] 11-22-2022 08:43-0400 Body weight 80.9 kg No Primary Care Physician [facility] 11-22-2022 08:43-0400 Diastolic blood pressure 62 mm[Hg] No Primary Care Physician [facility] 11-22-2022 08:43-0400 Systolic blood pressure 102 mm[Hg] No Primary Care Physician [facility] 11-08-2022 14:15-0400 Body mass index (BMI) [Ratio] 31.1 kg/m2 No Primary Care Physician [facility] 11-08-2022 14:15-0400 Body weight 79.83 kg No Primary Care Physician [facility] 11-08-2022 14:15-0400 Diastolic blood pressure 64 mm[Hg] No Primary Care Physician [facility] 11-08-2022 14:15-0400 Systolic blood pressure 108 mm[Hg] No Primary Care Physician [facility] 10-25-2022 08:39-0400 Body height 160.02 cm No Primary Care Physician [facility] 10-25-2022 08:38-0400 Body mass index (BMI) [Ratio] 30.6 kg/m2 No Primary Care Physician [facility] 10-25-2022 08:38-0400 Body weight 78.47 kg No Primary Care Physician [facility] 10-25-2022 08:38-0400 Diastolic blood pressure 67 mm[Hg] No Primary Care Physician [facility] 10-25-2022 08:38-0400 Systolic blood pressure 105 mm[Hg] No Primary Care Physician [facility] 10-11-2022 09:36-0400 Body mass index (BMI) [Ratio] 30.4 kg/m2 No Primary Care Physician [facility] 10-11-2022 09:36-0400 Body weight 78.01 kg No Primary Care Physician [facility] 10-11-2022 09:36-0400 Diastolic blood pressure 61 mm[Hg] No Primary Care Physician [facility] 10-11-2022 09:36-0400 Systolic blood pressure 108 mm[Hg] No Primary Care Physician [facility] 09-27-2022 08:51-0400 Body height 160.02 cm No Primary Care Physician [facility] 09-27-2022 08:46-0400 Body mass index (BMI) [Ratio] 30.1 kg/m2 No Primary Care Physician [facility] 09-27-2022 08:46-0400 Body weight 77.22 kg No Primary Care Physician [facility] 09-27-2022 08:46-0400 Diastolic blood pressure 68 mm[Hg] No Primary Care Physician [facility] 09-27-2022 08:46-0400 Systolic blood pressure 96 mm[Hg] No Primary Care Physician [facility] 08-30-2022 09:09-0400 Body mass index (BMI) [Ratio] 29.1 kg/m2 No Primary Care Physician [facility] 08-30-2022 09:09-0400 Body weight 74.55 kg No Primary Care Physician [facility] 08-30-2022 09:09-0400 Diastolic blood pressure 59 mm[Hg] No Primary Care Physician [facility] 08-30-2022 09:09-0400 Systolic blood pressure 103 mm[Hg] No Primary Care Physician [facility] 08-02-2022 08:52-0400 Body mass index (BMI) [Ratio] 28.2 kg/m2 No Primary Care Physician [facility] 08-02-2022 08:52-0400 Body weight 72.29 kg No Primary Care Physician [facility] 08-02-2022 08:52-0400 Diastolic blood pressure 59 mm[Hg] No Primary Care Physician [facility] 08-02-2022 08:52-0400 Systolic blood pressure 100 mm[Hg] No Primary Care Physician [facility] 07-05-2022 09:53-0400 Body mass index (BMI) [Ratio] 28 kg/m2 No Primary Care Physician [facility] 07-05-2022 09:53-0400 Body weight 71.66 kg No Primary Care Physician [facility] 07-05-2022 09:53-0400 Diastolic blood pressure 63 mm[Hg] No Primary Care Physician [facility] 07-05-2022 09:53-0400 Systolic blood pressure 96 mm[Hg] No Primary Care Physician [facility] 06-07-2022 14:30-0400 Body mass index (BMI) [Ratio] 26.6 kg/m2 No Primary Care Physician [facility] 06-07-2022 14:30-0400 Body weight 68.26 kg No Primary Care Physician [facility] 06-07-2022 14:30-0400 Diastolic blood pressure 55 mm[Hg] No Primary Care Physician [facility] 06-07-2022 14:30-0400 Systolic blood pressure 94 mm[Hg] No Primary Care Physician [facility] 05-09-2022 10:47-0500 Body height 160.02 cm No Primary Care Physician [facility] 05-09-2022 10:47-0500 Body mass index (BMI) [Ratio] 26.1 kg/m2 No Primary Care Physician [facility] 05-09-2022 10:47-0500 Body weight 66.79 kg No Primary Care Physician [facility] 05-09-2022 10:47-0500 Diastolic blood pressure 60 mm[Hg] No Primary Care Physician [facility] 05-09-2022 10:47-0500 Systolic blood pressure 108 mm[Hg] No Primary Care Physician [facility] Encounters Encounter Date Encounter Type Care Provider Facility Start: 09-06-2024 End: 09-06-2024 Patient encounter procedure Gabrielle Garcia CNM -[facility] Work Phone: Start: 09-06-2024 End: 09-06-2024 ambulatory No Primary Care Physician -[facility] Start: 09-06-2024 ambulatory Connie Suazo lity:[facility] Start: 09-01-2024 End: 09-01-2024 ambulatory MD NO PRIMARY CARE [facility] Start: 08-30-2024 End: 08-30-2024 Emergency department patient visit No Primary Care Physician -Emergency Department Work Phone: Start: 08-11-2024 End: 08-11-[address] Allison Ross DO -[facility] Work Phone: Start: 08-11-2024 End: 08-11-2024 ambulatory No Primary Care Physician [facility] Work Phone: Start: 07-16-2024 End: 07-16-[address] Connie Talavera MD -[facility] Work Phone: Start: 07-16-2024 End: 07-16-2024 ambulatory No Primary Care Physician [facility] Work Phone: Start: 06-18-2024 End: 06-18-[address] Connie Talavera MD -[facility] Work Phone: Start: 06-18-2024 End: 06-18-2024 ambulatory No Primary Care Physician [facility] Work Phone: Start: 06-18-2024 End: 06-18-2024 ambulatory Connie Talavera Facility:[facility] Start: 12-17-2022 Non-patient / Non-visit No Primary Care Physician [facility] Start: 12-16-2022 Non-patient / Non-visit No Primary Care Physician [facility] Start: 12-15-2022 Non-patient / Non-visit No Primary Care Physician [facility] Start: 12-15-2022 End: 12-17-2022 Evaluation and management of inpatient No [facility] Work Phone: Start: 12-14-2022 End: 12-15-2022 ambulatory No Primary Care Physician [facility] Work Phone: Start: 12-14-2022 End: 12-15-2022 Patient encounter procedure No Primary Care Physician [facility] Work Phone: Start: 12-12-2022 End: 12-12-2022 Patient encounter procedure No Primary Care Physician [facility] Work Phone: Start: 12-06-2022 End: 12-06-2022 Patient encounter procedure No Primary Care Physician [facility] [place] Work Phone: Start: 11-29-2022 End: 11-29-2022 Patient encounter procedure No Primary Care Physician [facility] Work Phone: Start: 11-22-2022 End: 11-22-2022 ambulatory No Primary Care Physician [facility] Work Phone: Start: 11-22-2022 End: 11-22-2022 Patient encounter procedure No Primary Care Physician [facility]-Laboratory, Specimen Work Phone: Start: 11-22-2022 End: 11-22-2022 Patient encounter procedure No Primary Care Physician [facility] [place] Work Phone: Start: 11-08-2022 End: 11-08-2022 Patient encounter procedure No Primary Care Physician [facility] Work Phone: Start: 10-25-2022 End: 10-25-2022 ambulatory No Primary Care Physician [facility] Work Phone: Start: 10-25-2022 End: 10-25-2022 Patient encounter procedure No Primary Care Physician [facility] Work Phone: Start: 10-11-2022 End: 10-11-2022 Patient encounter procedure No Primary Care Physician [facility] Work Phone: Start: 09-27-2022 End: 09-27-2022 ambulatory No Primary Care Physician [facility] Work Phone: Start: 09-27-2022 End: 09-27-2022 Patient encounter procedure No Primary Care Physician [facility] Work Phone: Start: 08-30-2022 End: 08-30-2022 Patient encounter procedure No Primary Care Physician [facility] Work Phone: Start: 08-02-2022 End: 08-02-2022 Patient encounter procedure No Primary Care Physician [facility] Work Phone: Start: 07-05-2022 End: 07-05-2022 Patient encounter procedure No Primary Care Physician [facility] Work Phone: Start: 06-07-2022 End: 06-07-2022 Patient encounter procedure No Primary Care Physician [facility] Work Phone: Start: 05-24-2022 End: 05-24-2022 ambulatory No Primary Care Physician [facility] Work Phone: Start: 05-24-2022 End: 05-24-2022 Patient encounter procedure No Primary Care Physician [facility] Start: 05-09-2022 End: 05-09-2022 ambulatory No Primary Care Physician [facility] Work Phone: Start: 05-09-2022 End: 05-09-2022 Patient encounter procedure No Primary Care Physician [facility]Laboratory, Specimen Start: 05-09-2022 End: 05-09-2022 Patient encounter procedure No Primary Care Physician [facility] [place] Procedures Date Procedure Procedure Detail Performing Clinician Start: 08-30-2024 Urnls dip stick/tabl et reagent auto microscopy No Primary Care Physician Start: 08-30-2024 Ultrasonography for antepartum monitoring of fetus No Primary Care Physician Start: 06-18-2024 Urine culture No Primar y Care Physician Start: 06-18-2024 Hepatitis C antibody measurement No Primary Care Physician Comment on above: Reactive: Presumptiv e evidence of antibodies to HCV. Follow CDC recommendations for supplemental testing.Non-Reactive: Antibodies to HCV were not detected; does not exclude the possibility of exposure to HCVReactive Results are presumptive evidence of antibodies to HCV. Follow CDC recommendations for supplemental testing.Order confirmation testing: HCV Quant by PCR testing - HCVPCR #[id number] Non Reactive: < 0.8 Equivocal: >/= 0.8 to < 1.0 Reactive: >/= 1.0The [facility][NOTE 3] requires that a reactive/equivocal HCV antibody result be sent out for confirmation. HCV Quant by PCR testing. Start: 06-18-2024 Rubella IgG measurement No Primary Care Physician Comment on above: Antibody Result: Int erpretationNon-Reactive: Non- ImmuneReactive: ImmuneThe following results were obtained with the [employer] Rubella IgG assay. Results from assays of other manufacturers cannot be used interchangeably. Start: 06-18-2024 Serologic test for syphilis No Primary Care Physician Start: 11-22-2022 Group B Streptococcu s Culture No Primary Care Physician Urine culture No Primary Car e Physician Plan of Treatment Date Care Activity Detail Author Start: 08-30-2024 [facility] Start: 06-18-2024 Chlamydia deoxyribon ucleic acid detection [facility] Start: 12-17-2022 Patient discharge [facility] Start: 12-15-2022 Administration of medication [facility] Start: 12-15-2022 Application of ice c ollar, cap or bag [facility] Start: 12-15-2022 Catheterization of vein [facility] Start: 12-15-2022 Introduction of urinary catheter [facility] Start: 12-15-2022 Measuring intake and output [facility] Start: 12-15-2022 Notification of physician [facility] Start: 12-15-2022 Procedure discontinued [facility] Start: 12-15-2022 Provision of activity privileges [facility] Start: 12-15-2022 Vital signs measurements [facility] Start: 12-15-2022 End: 12-15-2022 [facility] Start: 12-15-2022 Admission procedure [facility] Start: 12-15-2022 Verification routine [facility] Start: 12-15-2022 Patient discharge [facility] Start: 12-14-2022 Nonstress test [facility] Start: 12-14-2022 Obstetric monitoring [facility] Start: 12-14-2022 Vital signs measurements [facility] Start: 12-14-2022 [facility] Start: 05-09-2022 Liquid based cervica l cytology screening [facility] CBC W Auto Different ial panel - Blood [facility] anatomy study [facility] Hepatitis B surface antigen measurement [facility] Hepatitis C antibody measurement [facility] HIV 1+2 Ab+HIV1 p24 Ag [Presence] in Serum or Plasma by Immunoassay [facility] Neisseria gonorrhoea e rRNA [Presence] in Unspecified specimen by CALVIN with probe detection [facility] Path report.final Dx Spec [facility] Patient Education [facility] Work Phone: Patient referral [facility] Work Phone: PCR test for Chlamydia trachomatis [facility] Rubella IgG measurement [facility] Treponema sp Ab [Pre sence] in Serum [facility] Payers Date Payer Category Payer Unknown [id number] 2024 Self-pay 2024 Unknown [id number] [id number] Unknown [id number] Unknown [id number] Unknown [id number] Unknown [id number] Unknown [id number] Unknown [id number] Unknown [id number] Social History Date Type Detail Facility Start: 05-09-2022 End: 12-15-2022 Tobacco smoking status COIS Unknown if ever smoked [facility] Start: 1990 Sex Assigned At Female [facility] Start: 06-04-2024 End: 08-30-2024 Tobacco smoking status NHIS Never smoked tobacco (finding) [facility] Start: 06-22-2024 Sex Female (finding) [facility] Patient currentl y [facility] Goals Date Patient Goal Desired Activity /State Clinical Notes 05-09-2022 to 09-06-2024 Note Date & Type Note Facility 09-06-2024 Progress note [facility] 09-06-2024 Progress note Note Date/Time September 06, 2024 3:08pm [facility] [address] [place] [address], [address] [place] [address] OFFICE VISIT Date of Service: 09/06/24 MR#: [id number] Acct: [id number] Name: LINDSEY MCKEON Rep #: [id number] : 1990 Provider: SAULO Garcia Age/Sex: 34/F [place] [facility] [place]: Signed Intake Vital Signs 07/16/24 08:43 08/30/24 16:25 09/06/24 14:30 Height 5 ft 3 in 5 ft 3 in 5 ft 3 in Weight: 165 lb 2 oz BMI 29.2 BP 105/69 Intake Visit Reasons: 21wk ob Chief Complaint: 21wk OB Mathematical Scientist Required: No Is patient in pain?: No Allergies No Known Allergies Allergy (Verified 09/06/24 14:29) Medications ?Medication ?Instructions ?Recorded ?Confirmed ?Type prenat.vits,rodríguez,lcn-fxzb-kpgvp 1 tab PO DAILY pregnanc y 05/03/22 09/06/24 History ascorbic acid (vitamin C) 500 mg mg PO 05/22/23 History capsule cholecalciferol (vitamin D3) 25 25 mcg PO DAILY 09/06/24 History mcg (1,000 unit) capsule Last Menstrual Period: 04/14/24 : No Have you fallen in the past year?: No PFSH PFSH Medical History Vacuum extractor delivery, delivered Surgical History History of adenoidectomy Family History Father Extra digits extra pinky finger Mother Seizures Grandfather Cancer prostate Sister Extra digits extra toe on each foot Social History adopted: No household members: spouse housing: house 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: No pets and animals: No history of recent travel: No sexually active: Yes Smoking Status: Never smoker alcohol intake: never substance use type: does not use well-balanced diet: daily or most days caffeine: No eating out: rarely or never during the past year weight has: remained stable what type of physical activity do you participate in: walking and other details: home workouts frequency: 3-4 times per week duration: 30-45 minutes/day judi/oriental orthodox: Non-Jew/Independent seatbelt use: always do you feel safe at home: Yes additional social history: Spouse: Edward History 2 Elective abortions Hx Para 1 Spontaneous abortions Hx # Term Pregnancies 1 Ectopic pregnancies Hx # Pregnancies Multiple births # of living children 1 Past Pregnancies Del. Date Name GA/Weeks Outcome Route Bth Weight Infant [facility] Felicitas Breaux 39 live - full term vacuum 7#9oz Female epidural [facility] Steph Leon Delivery Date: 12/15/22 Last Updated by: Madeline Rothman vacuum extraction delivery tachycardia HPI 21wk ob Details: LINDSEY MCKEON is a 34 year old who presents for routine OB visit. OB Visit PETER Calculator Estimated Delivery Date Method Current WG Current Estimate 01/19/25 LMP (Certain) 20w 5d Other Estimates 01/16/25 Ultrasound #1 21w 1d Expected Delivery Route/Plan Labor Preferences- CB/BF classes: [] labor support person: [] labor intervention preferences: [] pain management options preferred: [] cut cord/dad catch: [] : [] PP control planned: [] discussed possible routes of delivery and associated risks: [] special requests: [] Specific Issue/Plans Covid status: [] Flu vaccine: [] Tdap vaccine: [] Rhogam: [] LARC form signed: [] Problem list reviewed and updated with the most current plan of care details and appropriate orders placed. Relevant counseling for the gestational age provided. Continue routine care and follow up unless otherwise noted in visit notes/problem list details Initial Weight: Not Recorded Date -?-?-?-?-?-?-?-?-?-?-?-?- EGA Weight BP Urine Prot -?-?-?-?-?-?-?-?-?-?-?-?- Glucose FHR FuHt Pres Dilation -?-?-?-?-?-?-?-?-?-?-?-?- Effaced St Visit Note 06/18/24 -?-?-?-?-?-?-?-?-?-?-?-?- 9w 2d 158 lb 4 oz 104/64 -?-?-?-?-?-?-?-?-?-?-?-?- 150 -?-?-?-?-?-?-?-?-?-?-?-?- SM- CRL cons 3 c m 07/16/24 -?-?-?-?-?-?-?-?-?-?-?-?- 13w 2d 161 lb 2 oz 104/65 -?-?-?-?-?-?-?-?-?-?-?-?- 150 -?-?-?-?-?-?-?-?-?-?-?-?- SM- no vb crmapi ng 08/11/24 -?-?-?-?-?-?-?-?-?-?-?-?- 17w 0d 162 lb 97/61 Negative -?-?-?-?-?-?-?-?-?-?-?-?- Negative 140 -?-?-?-?-?-?-?-?-?-?-?-?- JV- no lof, vagi nal bleeding, or cramping. 09/06/24 -?-?-?-?-?-?-?-?-?-?-?-?- 20w 5d 165 lb 2 oz 105/69 Nega tive -?-?-?-?-?-?-?-?-?-?-?-?- Negative 160 20 -?-?-?-?-?-?-?-?-?-?-?-?- KW- discussed an atomy US which shows complete previa and possible vasa previa. discussed expected plan of care. Has still had intermittent bleeding at times ACOG First Trimester First Trimester: Desire for , Alcohol, Tobacco Cessation, Illicit/Recreational Drug/Substance Use, Intimate Partner Violence, Barriers to care, Unstable Housing, Communication Barriers, Environmental/Work Hazards, Anticipated Course of Care, Toxoplasmosis Precations, Use of Any medications, Sexual activity, Exercise, Dental Care, Sauna/Hot tub use, Seat Belt use, Childbirth classes/Hospital facilities, Travel, Indications for Ultrasound and Screening for Aneuploidy; Discussed Second Trimester Second Trimester: Signs and Symptoms of Labor, Selecting a care provider, Reproductive Life Planning & Contreception, Care Planning, Depression/Anxiety and Intimate Partner Violence; Discussed Tobacco Cessation Third Trimester Third Trimester: Pain Management Plans, Labor support person(s), Immediate Larc, Movement Monitoring, Signs and Symptoms of Preeclampsia, Labor Signs, [place] Education and Depression ROS Const Reports system reviewed and no additional complaints, except as documented Eyes Reports system reviewed and no additional complaints, except as documented ENT Reports system reviewed and no additional complaints, except as documented Card Reports system reviewed and no additional complaints, except as documented Resp Reports system reviewed and no additional complaints, except as documented GI Reports system reviewed and no additional complaints, except as documented, Denies nausea and Denies vomiting Reports system reviewed and no additional complaints, except as documented Musc Reports system reviewed and no additional complaints, except as documented Skin/Breast Reports system reviewed and no additional complaints, except as documented Neuro Yes system reviewed and no additional complaints, except as documented Psych Reports system reviewed and no additional complaints, except as documented Endo Reports system reviewed and no additional complaints, except as documented Jagdeep/Lymph Reports system reviewed and no additional complaints, except as documented Aller/Immun Reports system reviewed and no additional complaints, except as documented Exam Const General: cooperative, healthy appearing and no acute distress Orientation: alert, awake and oriented x3 Neck Neck: normal visual inspection and full ROM Resp Effort & Inspection: normal respiratory effort, able to speak in complete sentences and symmetric chest movement GI Inspection: normal to inspection Palpation: soft and other Other: gravid Skin General: no rashes or lesions noted Neuro General: patient alert, patient awake and patient oriented x3 Cognition: normal cognition Speech: speech normal Gait: normal gait Motor: muscle tone normal throughout Extrem General: normal to inspection and full ROM Psych Appearance: grossly normal Mental Status: mental status grossly normal Mood: congruent mood Affect: normal affect Speech and Movement: speech and movement normal Attitude: cooperative Thought Process: normal Thought Content: normal Judgment: judgment good Results POC Urinalysis 2 Dip (Clinic) Office Urine Glucose Negative Last Edit by Elizabeth Curry on 09/06/24 14:36 Office Urine Protein Negative Last Edit by Elizabeth Curry on 09/06/24 14:36 Coding Level of Care Code OB Routine Diagnoses Vaginal bleeding N93.9 Placenta previa O44.00 History of vacuum extraction assisted delivery Z87.59 Supervision of high-risk O09.90 20 weeks gestation of Z3A.20 Weeks of gestation: 20 weeks Advanced maternal age (AMA) in Assessment and Plan Assessment and Plan (1) Vaginal bleeding: Status: Acute (2) Placenta previa: Status: Acute Comment: complete previa and possible Vasa previa. MFM consult (3) History of vacuum extraction assisted delivery: Status: Acute Comment: tachycardia (4) Supervision of high-risk : Status: Acute Comment: , PETER 01/19/25, TORSTEN White, Edward (5) : Status: Acute Qualifiers: Weeks of gestation: 20 weeks Qualified Code(s): Z3A.20 - 20 weeks gestation of Comment: declined NIPT & Carrier testing (6) Advanced maternal age (AMA) in : Status: Acute Comment: genetic counseling, declined screening. plan growth US at 36 weeks. Orders: Orders POC Urinalysis 2 Dip (Clinic) Today Plan Details Additional Comments: ACOG trimester education reviewed and updated. see problem list details for updated plan management information and see below for orders placed at this visit. GA appropriate handout given. Clinical Quality Measures Falls Risk Screening/Assistive Devices Have you fallen in the past year?: No 09/06/24 1508 <Electronically signed by Gabrielle kaur CNM> Date _ Gabrielle Garcia CNM Cosigner Signature: Date (if applicable) CC: ~ [facility] Work Phone: 1(435) 261-372206-30-2025 Discharge summary [facility] Medical Records Department [address] [place] [address] Emergency Department Summary 08/30/24 MR#: [id number] Acct: [id number] Name: LINDSEY MCKEON Olive Rep #:[id number] : 1990 34 From: Champ Wells DO PCP: Care Physician,No Primary Status :REG ER Location: ED HPI HPI - Female History of Present Illness Chief Complaint: Vag Bld, Preg Narrative Narrative: Patient is a 34-year-old female G2, P1 with no previous complications who presents to the emergencydepartment chief complaint of vaginal bleeding. States that her bleeding started around 330 this afternoon and notes that she has gone to the bathroom several times now and has essentially no bleeding at all. She states that she is currently 19 weeks and in 2 days will be 20 weeks. Patient states that she called her OIL EXPELLER OPERATOR and they advised her to come to the emergency department to be evaluated. Patient denies any intercourse or any specific inciting event. States that she did workout earlier this morning and does not know if this was the exact cause. [facility] Medical History Vacuum extractor delivery, delivered Home Medications ?Medication ?Instructions ?Recorded ?Last Taken ?Type prenat.vits,rodríguez,vyx-vena-luckm 1 tab PO DAILY pregnanc y 05/03/22 12/13/22 History ascorbic acid (vitamin C) 500 mg mg PO 05/22/23 Unknow n History capsule cholecalciferol (vitamin D3) 25 25 mcg PO DAILY Unknown History mcg (1,000 unit) capsule Allergy/AdvReac Type Severity Reaction Status Date / Time No Known Allergies Allergy Verified 08/30/24 16:25 Family History Father Extra digits extra pinky finger Mother Seizures Grandfather Cancer prostate Sister Extra digits extra toe on each foot Surgical History History of adenoidectomy Social History adopted: No household members: spouse housing: house 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: No pets and animals: No history of recent travel: No sexually active: Yes Smoking Status: Never smoker alcohol intake: never substance use type: does not use well-balanced diet: daily or most days caffeine: No eating out: rarely or never during the past year weight has: remained stable what type of physical activity do you participate in: walking and other details: home workouts frequency: 3-4 times per week duration: 30-45 minutes/day judi/oriental orthodox: Non-Jew/Independent seatbelt use: always do you feel safe at home: Yes additional social history: Spouse: Edward ANDRE POWELL ED ROS Narrative Constitutional: Denies any fevers, chills, headaches, lightness, dizziness Eyes: Denies change in vision double vision blurry vision Cardiovascular: Denies chest pain Respiratory: Denies shortness of breath Abdomen: Denies abdominal pain nausea vomit diarrhea : Denies any urinary symptoms complains of vaginal bleeding as noted above buthas since improved Neurological: Denies any numbness, wheeze, tingling Musculoskeletal: Denies back pain Skin: Denies any rashes or lesions EXAM Physical Exam Narrative Exam Narrative: General: Patient lying in bed rest comfortably did not appear to be acute distress Head: Atraumatic, normocephalic Eyes: PERRL bilaterally, EOMI blood, no conjunctival injection noted Neck: Soft, supple, trachea midline Cardiovascular: Regular rate and rhythm no murmurs gallops rubs noted Respiratory: Clear to auscultation bilaterally Abdomen: Soft, nondistended, nontender to palpation Extremities: +5/5 strength noted in the bilateral upper and lower extremities, radial pulses +2/4 in about extremities, no pedal edema exam Neurological: Patient following commands knew that she was at [facility] years 2024 Skin: Warm, dry, tact no rashes or lesions noted Const Vital Signs: 08/30/24 16:25 08/30/24 18:24 Temperature 98.4 F Temperature Source Oral Pulse Rate 103 H 70 Respiratory Rate 16 16 Blood Pressure 120/66 100/61 Blood Pressure Mean 84 74 Pulse Ox 98 99 Oxygen Delivery Method Room Air Room Air MDM MDM MDM Narrative Medical decision making narrative: Patient is a 34-year-old female who presents to the emergency department chief complaint of vaginalbleeding. On the differential diagnose includes developingto UTI, threatened miscarriage, placenta previa. Once workup is obtained reviewed she will be reevaluated. Patient urinalysis reviewed and showed no evidence of infection there was 150 occult blood. Patient's ultrasound was reviewed and showed placenta previa withpossible representing vasa previa. heart tones were 147. Closed os. Called and spoke with [facility] Jose discussed with them and they state that if she isRh- she should get RhoGAM and she will have close follow- upwith them she will be getting a phone call from them tomorrow morning. Patient was a positive on her antibody screen therefore she does not need RhoGAMat this point time. Discussed this plan with the patient and she was advised that she is not to haveany intercourse or have nothing inserted in her vagina she is to follow-up with her OB in the outpatient setting returnwith worsening symptoms or concerns. She is agreeable this plan as well as her significant other bedside all questionconcerns answered she is discharged home in stable condition. Lab Data Labs: Laboratory Results - last 24 hr 08/30/24 16:35 Urine Color Straw Urine Clarity Clear Urine pH 7.0 Ur Specific [place] 1.010 Urine Protein Negative Urine Glucose (UA) Normal Urine Ketones Negative Urine Occult Blood 150 H Urine Nitrite Negative Urine Bilirubin Negative Urine Urobilinogen Normal Ur Leukocyte Esterase Negative Urine RBC 0-5 SEEN Urine WBC 0-5 SEEN Ur Squamous Epith Cells 0-5 SEEN Urine Bacteria 0 SEEN Urine Mucus 0 SEEN Radiography Diagnostic Testing: Clinical Impression(s) from Imaging Studies Obstetrics Ultrasound 08/30/24 16:29 IMPRESSION: Placenta previa. Complex placenta with increased vascularity possibly representing vasa previa. Partial abruption ispossible but less likely due to increased vascularity. Reading Location: [place] [address] Discharge Plan Triage Chief Complaint: Vag Bld, Preg ED Provider: Champ Wells Dx/Rx/DC Orders Clinical Impression: Vaginal bleeding, , Placenta previa Prescriptions: No Action prenat.vits,rodríguez,wos-toom-bviqw Tablet 1 tab PO DAILY cholecalciferol (vitamin D3) 25 mcg (1,000 unit) capsule 25 mcg PO DAILY ascorbic acid (vitamin C) 500 mg capsule PO Primary Care Provider: Care Physician,Kathy Primary Referrals: Care Physician,No Primary [Primary Care Provider] - Activity Restrictions/Additional Instructions: Follow-up with your OIL EXPELLER OPERATOR tomorrow give them a call if they do not call you first thing in the morning. Return with worsening symptoms or other concerns. Do not insert anything in your vagina you are on pelvic rest. Print Language: Paraguayan Disposition Disposition: Home, Self Care What to do if you have Problems For any increased pain, shortness of breath, bleeding, nausea or vomiting, chestpain, or any unexpected problems, contact your Primary Care Provider. Call [facility] ([phone]) or report tothe closest Emergency Room. Call 911 if necessary. 08/30/242012 Cosigner Signature (if applicable): CC: No Primary Care Physician ~ Signed ADDENDUM by Dr. Champ Wells DO on 08/30/24 at 2211 Right before the patient left use the bathroom again and she passed a large blood clot. I reach back out to the OB team and spoke with the nurse practitioner/on-call provider and they recommended discuss further with OB/UN Dr. Talavera. Her recommendation was repeat heart tones and observeher for another hour she states that if she is having increased bleeding then she will observe her here if she does not pass any further clots and has not been soaking through a pad an hour she can follow-up with him tomorrow. Patient was observed here for at minimum 1 hour and she states that she went to the bathroom a couple times and was not passing large clots she had minimal bleeding she states that she still has the same pad on that she arrived here to the emergency department with. heart tones were obtained and noted to be 154. I discussed this plan with the patient she was advised to once again refrain from any thing inserted in her vagina, if she is soaking through more than 1 padan hour she is to return to the emergency department otherwise she should follow-up with her OB/UN team tomorrow morning. She is placed on pelvic rest aswell. All question concerns answered she is agreeable to plan as well as significant other at bedside she is discharged home in stable condition. 08/30/242210 Cosigner Signature (if applicable): cc: No Primary Care Physician ~* Signed [facility]06-30-2025 Radiology Diagnostic study note [facility] Imaging Services [address] [place], [place] [address] OB Limited (No Biometrics) MR#: [id number] Acct: [id number] Name: LINDSEY MCKEON Rep #: [id number] : 1990 F 34 From: Reyes Puente MD PCP: Care Physician,No Primary Status: REG ER Study:OB Limited (No Biometrics) Date of Exam : 08/30/24 Exam# [id number] Ordering Dr: Tony Wells DO PROCEDURE: OB LIMITED (NO BIOMETRICS) 08/30/2024 REASON FOR EXAM: VAG BLEEDING 19 WEEK 5 DAYS TECHNIQUE: OB LIMITED (NO BIOMETRICS) COMPARISON: None. FINDINGS position is breech. heart rate of 147 beats per minute. Cervical length of 3.9 cm and closed. Grade 0 placenta. Posterior location with complete previa. age of 19 weeks and 5 days. Complex appearance of the placenta with increased vascularity which may represent vasa previa. Placenta abruption is less likely due to increased vascularity. US/OB Limited (No Biometrics) IMPRESSION: Placenta previa. Complex placenta with increased vascularity possibly representing vasa previa. Partial abruption ispossible but less likely due to increased vascularity. Reading Location: [id number] CC: Dr. Champ Wells DO; No Primary Care Physician ~ Process Control Programmer: Signed [facility]06-30-2025 Discharge summary Author Champ Wells [facility] Note Date/Time August 30, 2024 10:1 1pm [facility] Medical Records Department [address] [place] [address] Emergency Department Summary 08/30/24 MR#: [id number] Acct: [id number] Name: LINDSEY MCKEON Rep #:[id number] : 1990 34 From: Champ Wells DO PCP: Care Physician,No Primary Status :REG ER Location: ED HPI HPI - Female History of Present Illness Chief Complaint: Vag Bld, Preg Narrative Narrative: Patient is a 34-year-old female G2, P1 with no previous complications who presents to the emergency department chief complaint of vaginal bleeding. States that her bleeding started around 330 this afternoon and notes that she has gone to the bathroom several times now and has essentially no bleeding at all. She states that she is currently 19 weeks and in 2 days will be 20 weeks. Patient states that she called her OIL EXPELLER OPERATOR and they advised her to come to the emergency department to be evaluated. Patient denies any intercourse or any specific inciting event. States that she did workout earlier this morning and does not know if this was the exact cause. [facility] Medical History Vacuum extractor delivery, delivered Home Medications ?Medication ?Instructions ?Recorded ?Last Taken ?Type prenat.vits,rodríguez,ejk-jorx-miawj 1 tab PO DAILY pregnanc y 05/03/22 12/13/22 History ascorbic acid (vitamin C) 500 mg mg PO 05/22/23 Unknow n History capsule cholecalciferol (vitamin D3) 25 25 mcg PO DAILY Unknown History mcg (1,000 unit) capsule Allergy/AdvReac Type Severity Reaction Status Date / Time No Known Allergies Allergy Verified 08/30/24 16:25 Family History Father Extra digits extra pinky finger Mother Seizures Grandfather Cancer prostate Sister Extra digits extra toe on each foot Surgical History History of adenoidectomy Social History adopted: No household members: spouse housing: house 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: No pets and animals: No history of recent travel: No sexually active: Yes Smoking Status: Never smoker alcohol intake: never substance use type: does not use well-balanced diet: daily or most days caffeine: No eating out: rarely or never during the past year weight has: remained stable what type of physical activity do you participate in: walking and other details: home workouts frequency: 3-4 times per week duration: 30-45 minutes/day judi/oriental orthodox: Non-Jew/Independent seatbelt use: always do you feel safe at home: Yes additional social history: Spouse: Edward POWELL ED ROS Narrative Constitutional: Denies any fevers, chills, headaches, lightness, dizziness Eyes: Denies change in vision double vision blurry vision Cardiovascular: Denies chest pain Respiratory: Denies shortness of breath Abdomen: Denies abdominal pain nausea vomit diarrhea : Denies any urinary symptoms complains of vaginal bleeding as noted above buthas since improved Neurological: Denies any numbness, wheeze, tingling Musculoskeletal: Denies back pain Skin: Denies any rashes or lesions EXAM Physical Exam Narrative Exam Narrative: General: Patient lying in bed rest comfortably did not appear to be acute distress Head: Atraumatic, normocephalic Eyes: PERRL bilaterally, EOMI blood, no conjunctival injection noted Neck: Soft, supple, trachea midline Cardiovascular: Regular rate and rhythm no murmurs gallops rubs noted Respiratory: Clear to auscultation bilaterally Abdomen: Soft, nondistended, nontender to palpation Extremities: +5/5 strength noted in the bilateral upper and lower extremities, radial pulses +2/4 in about extremities, no pedal edema exam Neurological: Patient following commands knew that she was at [facility] years 2024 Skin: Warm, dry, tact no rashes or lesions noted Const Vital Signs: 08/30/24 16:25 08/30/24 18:24 Temperature 98.4 F Temperature Source Oral Pulse Rate 103 H 70 Respiratory Rate 16 16 Blood Pressure 120/66 100/61 Blood Pressure Mean 84 74 Pulse Ox 98 99 Oxygen Delivery Method Room Air Room Air MDM MDM MDM Narrative Medical decision making narrative: Patient is a 34-year-old female who presents to the emergency department chief complaint of vaginal bleeding. On the differential diagnose includes developingto UTI, threatened miscarriage, placenta previa. Once workup is obtained reviewed she will be reevaluated. Patient urinalysis reviewed and showed no evidence of infection there was 150 occult blood. Patient's ultrasound was reviewed and showed placenta previa withpossible representing vasa previa. heart tones were 147. Closed os. Called and spoke with [place] OIL EXPELLER OPERATOR Jose discussed with them and they state that if she is Rh- she should get RhoGAM and she will have close follow-upwith them she will be getting a phone call from them tomorrow morning. Patient was a positive on her antibody screen therefore she does not need RhoGAMat this point time. Discussed this plan with the patient and she was advised that she is not to haveany intercourse or have nothing inserted in her vagina she is to follow-up with her OB in the outpatient setting return with worsening symptoms or concerns. She is agreeable this plan as well as her significant other bedside all questionconcerns answered she is discharged home in stable condition. Lab Data Labs: Laboratory Results - last 24 hr 08/30/24 16:35 Urine Color Straw Urine Clarity Clear Urine pH 7.0 Ur Specific [place] 1.010 Urine Protein Negative Urine Glucose (UA) Normal Urine Ketones Negative Urine Occult Blood 150 H Urine Nitrite Negative Urine Bilirubin Negative Urine Urobilinogen Normal Ur Leukocyte Esterase Negative Urine RBC 0-5 SEEN Urine WBC 0-5 SEEN Ur Squamous Epith Cells 0-5 SEEN Urine Bacteria 0 SEEN Urine Mucus 0 SEEN Radiography Diagnostic Testing: Clinical Impression(s) from Imaging Studies Obstetrics Ultrasound 08/30/24 16:29 IMPRESSION: Placenta previa. Complex placenta with increased vascularity possibly representing vasa previa. Partial abruption is possible but less likely due to increased vascularity. Reading Location: [id number] Discharge Plan Triage Chief Complaint: Vag Bld, Preg ED Provider: Champ Wells Dx/Rx/DC Orders Clinical Impression: Vaginal bleeding, , Placenta previa Prescriptions: No Action prenat.vits,rodríguez,agd-ptrn-vzhfz Tablet 1 tab PO DAILY cholecalciferol (vitamin D3) 25 mcg (1,000 unit) capsule 25 mcg PO DAILY ascorbic acid (vitamin C) 500 mg capsule PO Primary Care Provider: Care Physician,No Primary Referrals: Care Physician,No Primary [Primary Care Provider] - Activity Restrictions/Additional Instructions: Follow-up with your OIL EXPELLER OPERATOR tomorrow give them a call if they do not call you first thing in the morning. Return with worsening symptoms or other concerns. Do not insert anything in your vagina you are on pelvic rest. Print Language: Paraguayan Disposition Disposition: Home, Self Care What to do if you have Problems For any increased pain, shortness of breath, bleeding, nausea or vomiting, chestpain, or any unexpected problems, contact your Primary Care Provider. Call [facility] ([phone]) or report to the closest Emergency Room. Call 911 if necessary. 08/30/242012 <Electronically signed by Champ Wells DO> Cosigner Signature (if applicable): CC: No Primary Care Physician ~ Signed ADDENDUM by Dr. Champ Wells DO on 08/30/24 at 2211 Right before the patient left use the bathroom again and she passed a large blood clot. I reach back out to the OB team and spoke with the nurse practitioner/on- call provider and they recommended discuss further with OB/UN Dr. Talavera. Her recommendation was repeat heart tones and observe her for another hour she states that if she is having increased bleeding then she will observe her here if she does not pass any further clots and has not been soaking through a pad an hour she can follow-up with him tomorrow. Patient was observed here for at minimum 1 hour and she states that she went to the bathroom a couple times and was not passing large clots she had minimal bleeding she states that she still has the same pad on that she arrived here to the emergency department with. heart tones were obtained and noted to be 154. I discussed this plan with the patient she was advised to once again refrain from any thing inserted in her vagina, if she is soaking through more than 1 padan hour she is to return to the emergency department otherwise she should follow-up with her OB/UN team tomorrow morning. She is placed on pelvic rest aswell. All question concerns answered she is agreeable to plan as well as significant other at bedside she is discharged home in stable condition. 08/30/242210<Electronically signed by Champ Wells DO> Margaritaigner Signature (if applicable): cc: No Primary Care Physician ~* Signed [facility] Work Phone: 1(671) 978-329606-30-2025 Hospital Discharge instructionsAdditional Instructions Follow-up with your OIL EXPELLER OPERATOR tomorrow give them a call if they do not call you first thing in the morning. Return with worsening symptoms or other concerns. Do not insert anything in your vagina you are on pelvic rest.[facility] Work Phone: 1(350) 629-117306-11-2025 [facility] [address], [address] [place] [address] OFFICE VISIT Date of Service: 08/11/24 MR#: [id number] Acct: [id number] Name: LINDSEY MCKEON Rep #: [id number] : 1990 Provider: Dr. Chanel Ross DO Age/Sex: 34/F [place] [facility] [place]: [place] Intake Vital Signs 06/18/24 13:12 07/16/24 08:43 08/11/24 10:40 Height 5 ft 3 in 5 ft 3 in 5 ft 3 in Weight: 162 lb BMI 28.7 BP 97/61 Intake Visit Reasons: 18 wk ob Mathematical Scientist Required: No Is patient in pain?: No Allergies No Known Allergies Allergy (Verified 08/11/24 10:41) Medications ?Medication ?Instructions ?Recorded ?Confirmed ?Type prenat.vits,rodríguez,npb-pqth-fxawe 1 tab PO DAILY pregnanc y 05/03/22 08/11/24 History ascorbic acid (vitamin C) 500 mg mg PO 05/22/23 History capsule cholecalciferol (vitamin D3) 25 25 mcg PO DAILY 08/11/24 History mcg (1,000 unit) capsule Last Menstrual Period: 04/14/24 Zika: Zika virus screening: Negative : No PFSH PFSH Medical History Vacuum extractor delivery, delivered Surgical History History of adenoidectomy Family History Father Extra digits extra pinky finger Mother Seizures Grandfather Cancer prostate Sister Extra digits extra toe on each foot Social History adopted: No household members: spouse housing: house 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: No pets and animals: No history of recent travel: No sexually active: Yes Smoking Status: Never smoker alcohol intake: never substance use type: does not use well-balanced diet: daily or most days caffeine: No eating out: rarely or never during the past year weight has: remained stable what type of physical activity do you participate in: walking and other details: home workouts frequency: 3-4 times per week duration: 30-45 minutes/day judi/oriental orthodox: Non-Jew/Independent seatbelt use: always do you feel safe at home: Yes additional social history: Spouse: Edward History 2 Elective abortions Hx Para 1 Spontaneous abortions Hx # Term Pregnancies 1 Ectopic pregnancies Hx # Pregnancies Multiple births # of living children 1 Past Pregnancies Del. Date Name GA/Weeks Outcome Route Bth Weight Gen Labor Lgth Anesthesia Del Locatn Provider FOB 12/15/22 Felicitas Breaux 39 live - full term vacuum 7#9oz Female epidural [facility] Steph Leon Delivery Date: 12/15/22 Last Updated by: Madeline Rothman vacuum extraction delivery tachycardia HPI 18 wk ob Details: LINDSEY MCKEON is a 34 year old who presents for routine OB visit. OB Visit PETER Calculator Estimated Delivery Date Method Current WG Current Estimate 01/19/25 LMP (Certain) 17w 0d Other Estimates 01/16/25 Ultrasound #1 17w 3d Expected Delivery Route/Plan Labor Preferences- CB/BF classes: [] labor support person: [] labor intervention preferences: [] pain management options preferred: [] cut cord/dad catch: [] : [] PP control planned: [] discussed possible routes of delivery and associated risks: [] special requests: [] Specific Issue/Plans Covid status: [] Flu vaccine: [] Tdap vaccine: [] Rhogam: [] LARC form signed: [] Problem list reviewed and updated with the most current plan of care details and appropriate ordersplaced. Relevant counseling for the gestational age provided. Continue routine care and follow up unless otherwise noted in visit notes/problem list details Initial Weight: Not Recorded Date -?-?-?-?-?-?-?-?-?-?-?-?- EGA Weight BP Urine Prot -?-?-?-?-?-?-?-?-?-?-?-?- Glucose FHR FuHt Pres Dilation -?-?-?-?-?-?-?-?-?-?-?-?- Effaced St Visit Note 06/18/24 -?-?-?-?-?-?-?-?-?-?-?-?- 9w 2d 158 lb 4 oz 104/64 -?-?-?-?-?-?-?-?-?-?-?-?- 150 -?-?-?-?-?-?-?-?-?-?-?-?- SM- CRL cons 3 c m 07/16/24 -?-?-?-?-?-?-?-?-?--?-?-?- 13w 2d 161 lb 2 oz 104/65 -?-?-?-?-?-?-?-?-?-?-?-?- 150 -?-?-?-?-?-?-?-?-?-?-?-?- SM- no vb crmapi ng 08/11/24 -?-?-?-?-?-?-?-?-?-?-?-?- 17w 0d 162 lb 97/61 Negative -?-?-?-?-?-?-?-?-?-?-?-?- Negative 140 -?-?-?-?-?-?-?-?-?-?-?-?- JV- no lof, vagi nal bleeding, or cramping. ACOG First Trimester First Trimester: Desire for , Alcohol, Tobacco Cessation, Illicit/Recreational Drug/Substance Use, Intimate Partner Violence, Barriers to care, Unstable Housing, Communication Barriers, Environmental/Work Hazards, Anticipated Course of Care, Toxoplasmosis Precations, Use of Any med ications, Sexual activity, Exercise, Dental Care, Sauna/Hot tub use, Seat Belt use, Childbirth classes/Hospital facilities, Travel, Indications for Ultrasound and Screening for Aneuploidy; Discussed Second Trimester Second Trimester: Signs and Symptoms of Labor, Selecting a care provider, Reproductive Life Planning & Contreception, Care Planning, Depression/Anxiety and Intimate Partner Violence; Discussed Tobacco Cessation Third Trimester Third Trimester: Pain Management Plans, Labor support person(s), Immediate Larc, Movement Monitoring, Signs and Symptoms of Preeclampsia, Labor Signs, Education and Depression Results POC Urinalysis 2 Dip (Clinic) Office Urine Glucose Negative Last Edit by Caitlin Marquez on 08/11/24 10: 49 Office Urine Protein Negative Last Edit by Caitlin Marquez on 08/11/24 10: 49 Coding Level of Care Code OB Routine Diagnoses History of vacuum extraction assisted delivery Z87.59 Supervision of high-risk O09.90 17 weeks gestation of Z3A.17 Weeks of gestation: 17 weeks Advanced maternal age (AMA) in Assessment and Plan Assessment and Plan (1) History of vacuum extraction assisted delivery: Status: Acute Comment: tachycardia (2) Supervision of high-risk : Status: Acute Comment: , PETER 01/19/25, TORSTEN White, Edward (3) : Status: Acute Qualifiers: Weeks of gestation: 17 weeks Qualified Code(s): Z3A.17 - 17 weeks gestation of Comment: declined NIPT & Carrier testing (4) Advanced maternal age (AMA) in : Status: Acute Comment: genetic counseling, declined screening. plan growth US at 36 weeks. Orders: Orders POC Urinalysis 2 Dip (Clinic) Today 08/11/24 1122 e Velde DO> Date _ Allison Choi Nolvia DO Cosigner Signature: Date (if applicable) CC: ~ [facility]04-18-2025 Evaluation note* Diagnosis Onset Date Resolution Status Admit Date Advanced maternal age (AMA) in acute June 18, 2024 1:03pm History of vacuum extraction assisted delivery acute June 18 1:03pm acute June 18 1:03pm Supervision of high-risk acute June 18, 2024 1:03pm [facility] Work Phone: 1(341) 993-267304-18-2025 Evaluation note* Diagnosis Onset Date Resolution Status Admit Date Advanced maternal age (AMA) in acute June 18, 2024 1:03pm History of vacuum extraction assisted delivery acute June 18 1:03pm acute June 18 1:03pm Supervision of high-risk acute June 18, 2024 1:03pm Advanced maternal age (AMA) in acute July 16, 2024 8 :34am History of vacuum extraction assisted delivery acute July 16, 2024 8:34am acute July 16, 2024 8:34am Supervision of high-risk acute July 16, 2024 8 :34am [facility] Work Phone: 1(361) 668-567004-18-2025 Evaluation note* Diagnosis Onset Date Resolution Status Admit Date Advanced maternal age (AMA) in acute June 18, 2024 1:03pm History of vacuum extraction assisted delivery acute June 18 1:03pm acute June 18 1:03pm Supervision of high-risk acute June 18, 2024 1:03pm Advanced maternal age (AMA) in acute July 16, 2024 8 :34am History of vacuum extraction assisted delivery acute July 16, 2024 8:34am acute July 16, 2024 8:34am Supervision of high-risk acute July 16, 2024 8 :34am Advanced maternal age (AMA) in acute August 11, 2024 10:35am History of vacuum extraction assisted delivery acute August 11 10:35am acute August 11 10:35am Supervision of high-risk acute August 11, 2024 10:35am [facility] Work Phone: 1(306) 993-654304-18-2025 Evaluation note* Diagnosis Onset Date Resolution Status Admit Date Advanced maternal age (AMA) in acute June 18, 2024 1:03pm History of vacuum extraction assisted delivery acute June 18 1:03pm acute June 18 1:03pm Supervision of high-risk acute June 18, 2024 1:03pm Advanced maternal age (AMA) in acute July 16, 2024 8 :34am History of vacuum extraction assisted delivery acute July 16, 2024 8:34am acute July 16, 2024 8:34am Supervision of high-risk acute July 16, 2024 8 :34am Advanced maternal age (AMA) in acute August 11, 2024 10:35am History of vacuum extraction assisted delivery acute August 11 10:35am acute August 11 10:35am Supervision of high-risk acute August 11, 2024 10:35am Advanced maternal age (AMA) in acute September 06, 2024 2 :17pm History of vacuum extraction assisted delivery acute September 06, 2024 2:17pm Placenta previa acute September 06, 2024 2:17pm acute September 06, 2024 2:17pm Supervision of high-risk acute September 06, 2024 2 :17pm Vaginal bleeding acute August 2:17pm [facility] Work Phone: 1(136) 414-405310-17-2023 Discharge summary Author Gabrielle Garcia [facility] December 17, 2022 12:16pm Note Date/Time December 17, 2022 1 2:16pm [facility] Medical Records Department [address] [place] [address] Instructions for Home/Discharge Instructions 12/17/22 0741 MR#: [id number] Acct: [id number] Name: LINDSEY MCKEON Rep #:[id number] : 1990 32 From: Gabrielle Garcia CNM PCP: Care Physician,No Primary Status :ADM IN Discharge Instructions Diet Discharge Diet: No restrictions Activity Discharge Activity: Return to Normal Activity May resume sexual activity in: 4-6 weeks Dressing / Incision Call your doctor if your incision/area has: Continuous Slow Oozing, Sudden Increased Bleeding, Increased Pain/ Swelling, Increased Redness and Foul Smelling Discharge Call your doctor if you observe: Fever of 101 or Higher, Coldness, Increased Pain, Numbness or Tingling, Change in Color, Inability to urinate, Inability to have a bowel movement, Using more than 1 pad per hour, Shortness of breath, Dizziness, Fainting spells, Swelling in the ankles, Chest pain, Increased palpitations (irregular heartbeat), Calf discomfort and Uncontrolled pain Follow Up Care Please Follow Up With: Allison Ross DO When: Please call the office to schedule your follow up appointment in 6 weeks. If you had high blood pressure please call to schedule an appointment in 2 weeks. Test Results: Test results from this visit will be discussed in further detail at your follow- up appointment, if applicable. Discharge Plan Admission Admit Date/Time: 12/15/22 05:05 Attending Provider: Allison Ross Primary Care Provider: Care Physician,No Primary Instructions Patient Instructions: After a Vaginal Discharge Orders/Prescriptions Prescriptions: No Action prenat.vits,rodríguez,ybu-rkmo-fjhjz Tablet 1 tab PO DAILY vitamin E 100 unit/0.25 mL drops PO .once day Referrals / Follow Up: Care Physician,No Primary [Primary Care Provider] - Disposition Disposition (needs filled in before D/C Order can be placed): Home, Self Care 12/17/22 1216<Electronically signed by Gabrielle Garcia CNM>Gabrielle Garcia CNM CC: No Primary Care Physician ~ Signed [facility] Work Phone: 1(132) 242-673010-17-2023 Progress note Author Gabrielle Garcia [facility] December 17, 2022 7:41am Note Date/Time December 17, 2022 7 :41am [facility] Medical Records Department [address] [place] [address] Progress Note - OBGYN 12/17/22 0736 MR#: [id number] Acct: [id number] Name: LINDSEY MCKEON Rep #:[id number] : 1990 32 From: Gabrielle Garcia CNM PCP: Care Physician,No Primary Status :ADM IN Location: [place] [address] Subjective Subjective Patient doing well without complaints. Tolerating PO. Ambulating and voiding without difficulty. Feeding well. Denies chest pain, shortness of breath, calf pain/swelling, fevers, chills, lightheadedness. Objective Data Objective Data Vital Signs: Vital Signs Temp Pulse Resp BP Pulse Ox O2 Del Method 97.3 F L 74 16 97/63 100 Room Air 12/17/22 01:50 12/17/22 01:50 12/17/22 01:50 12/17/22 01:50 12/16/22 13:39 12/16/22 20:20 Oxygen Delivery Method Room Air Weight: 186 lb Body Mass Index (BMI) 32.9 Intake & Output: Intake and Output for Last 24 Hours 12/15/22 12/16/22 12/17/22 23:59 23:59 23:59 Intake Total 3002.93 / 3002.93 100 / 100 Output Total 1450 / 1450 500 / 500 Balance 1552.93 / 1552.93 -400 / -400 Lab / Micro Data Attestation: I reviewed the patient's lab results. 12/17/22 05:13 Labs: Laboratory Results - last 24 hr 12/17/22 05:13: WBC 15.1 H, RBC 2.88 L, Hgb 8.8 L, Hct 26.9 L, MCV 93.4, MCH 30.6, MCHC 32.7, RDW Std Deviation 44.2 H, RDW Coeff of Pedro 12.9, Plt Count 150,MPV 10.0, Immature Gran % (Auto) 0.800, Neut % (Auto) 73.3 H, Lymph % (Auto) 16.5 L, [place] % (Auto) 7.1, Eos % (Auto) 1.8, Baso % (Auto) 0.5, Absolute Neuts (auto) 11.1 H, Absolute Lymphs (auto) 2.49, Nucleated RBC % 0 ROS Constitutional Constitutional: Reports systems reviewed and no addt'l complaints, except as documented; Denies anorexia or headache(s) Cardiovascular Cardiovascular: Reports systems reviewed and no addt'l complaints, except as documented; Denies dizziness, dyspnea, nausea or tachypnea Respiratory/Chest Respiratory/Chest: Reports systems reviewed and no addt'l complaints, except as documented; Denies cough, dyspnea, shortness of breath at rest or tachypnea Gastrointestinal Gastrointestinal: Reports systems reviewed and no addt'l complaints, except as documented; Denies abdominal pain, constipation or nausea Genitourinary Genitourinary: Reports systems reviewed and no addt'l complaints, except as documented; Denies burning urination, difficulty urinating, dysuria, urinary frequency or urinary incontinence Musculoskeletal Musculoskeletal: Reports systems reviewed and no addt'l complaints, except as documented Integumentary Integumentary: Reports systems reviewed and no addt'l complaints, except as documented Neurologic Neurologic: Reports systems reviewed and no addt'l complaints, except as documented; Denies abnormal speech, dizziness or headache(s) Psychiatric Psychiatric: Reports systems reviewed and no addt'l complaints, except as documented Endocrine Endocrinology: Reports systems reviewed and no addt'l complaints, except as documented Hematologic/Lymphatic Hematologic/Lymphatic: Reports systems reviewed and no addt'l complaints, exceptas documented Physical Exam Const alert, oriented x3 and no apparent distress Neck full ROM Resp normal respiratory effort, normal air movement and no retractions Effort and Inspection: able to speak in complete sentences and symmetric chest movement GI soft to palpation Bladder / Kidney Exam: bladder normal to palpation Uterus Palpation: uterus fundus firm Extremity normal to inspection and full ROM Psych mental status grossly normal, thought process normal and cooperative Assessment & Plan (1) Maternal fever during labor: COMMENT: Triple I ancef q8 hours repeat cbc 12/17- PLAN: plan another dose IV atb prior to D/C possible PO ATB at discharge (2) Vacuum extractor delivery, delivered: COMMENT: JV tachycardia. Felicitas. PLAN: s/p PPD # 2 1. routine post delivery care 2. breast feeding- support given 3. rh positive 4. rubella immune discharge home (3) Active labor at term: (4) Rupture of membranes with clear amniotic fluid: (5) Anemia affecting : COMMENT: started on iron supplement. repeat at 32 weeks(improved to 11.7) (6) Supervision of high risk , antepartum: COMMENT: PRR PETER 12/17/22 girl (secret name)Spouse: Edward GBS neg (7) : QUALIFIERS: Weeks of gestation: 39 weeks Qualified Code(s): Z3A.39 - 39 weeks gestation of COMMENT: GBS Negative, NIPT low risk, carrier neg. 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 FOB to be tested, nl anatomy Charges/Coding Multi Select Codes Urinary/Genital Urinary/Genital CPT Codes: No Charge 12/17/22 0741 <Electronically signed by Gabrielle Garcia CNM> Cosigner Signature (if applicable): CC: ~ Signed [facility] Work Phone: 1(463) 301-607510-16-2023 Progress note Author Geneva Velasco [facility] December 16, 2022 9:03am Note Date/Time December 16, 2022 9 :03am [facility] Medical Records Department [address] [place] [id number] Progress Note - OBGYN 12/16/22 0858 MR#: [id number] Acct: [id number] Name: LINDSEY MCKEON Rep #:[id number] : 1990 32 From: Geneva Velasco CNM PCP: Care Physician,No Primary Status :ADM IN Location: [facility]108-0 Subjective Subjective Patient doing well without complaints. Tolerating PO. Ambulating and voiding without difficulty. Feeding well. Denies chest pain, shortness of breath, calf pain/swelling, fevers, chills, lightheadedness. Objective Data Objective Data Vital Signs: Vital Signs Temp Pulse Resp BP Pulse Ox O2 Del Method 98.1 F 85 16 106/58 L 97 Room Air 12/16/22 08:03 12/16/22 08:03 12/16/22 08:03 12/16/22 08:03 12/16/22 04:15 12/16/22 08:03 Oxygen Delivery Method Room Air Weight: 186 lb Body Mass Index (BMI) 32.9 Intake & Output: Intake and Output for Last 24 Hours 12/14/22 12/15/22 12/16/22 23:59 23:59 23:59 Intake Total 3002.93 / 3002.93 Output Total 1450 / 1450 500 / 500 Balance 1552.93 / 1552.93 -500 / -500 Lab / Micro Data 12/16/22 05:26 Labs: Laboratory Results - last 24 hr 12/15/22 19:00: WBC 22.3 H, RBC 3.41 L, Hgb 10.4 L, Hct 31.6 L, MCV 92.7, MCH 30.5, MCHC 32.9, RDW Std Deviation 42.4, RDW Coeff of Pedro 12.5, Plt Count 152, MPV 10.8, Immature Gran % (Auto) 0.900, Neut % (Auto) 87.3 H, Lymph % (Auto) 4.8L, [place] % (Auto) 6.8, Eos % (Auto) 0.0, Baso % (Auto) 0.2, Absolute Neuts (auto)19.5 H, Absolute Lymphs (auto) 1.07, Nucleated RBC % 0, Differential Comment SCANNED, Diff Path Review July12/16/22 05:26: WBC 27.9 H, RBC 3.47 L, Hgb 10.6 L, Hct 32.4 L, MCV 93.4, MCH 30.5, MCHC 32.7, RDW Std Deviation 43.2, RDW Coeff of Pedro 12.8, Plt Count 160, MPV 10.3, Immature Gran % (Auto) 0.800, Neut % (Auto) 81.7 H, Lymph % (Auto) 9.8L, [place] % (Auto) 7.3, Eos % (Auto) 0.1, Baso % (Auto) 0.3, Absolute Neuts (auto)22.8 H, Absolute Lymphs (auto) 2.74, Nucleated RBC % 0, Diff Path Review July Physical Exam Const alert and no apparent distress Neck full ROM Chest inspection of chest normal Nipple/Areola: nipples/areola normal Resp normal respiratory effort Cardio regular rate and regular rhythm GI normal to inspection, nondistended, normoactive bowel sounds Bimanual Exam - Vag & Uterus: Negative for uterus tender Uterus Palpation: uterus fundus firm Extremity normal to inspection and no calf tenderness Extremity Narrative: trace edema Skin no rashes or lesions noted Psych mental status grossly normal Assessment & Plan (1) Vacuum extractor delivery, delivered: COMMENT: JV tachycardia. Felicitas. PLAN: s/p PPD # 1 1. routine post delivery care 2. breast feeding- support given 3. rh positive 4. rubella immune (2) Maternal fever during labor: COMMENT: Triple I ancef q8 hours repeat cbc 12/17 PLAN: updated on exam and labs, plan to restart ancef x24 hours and repeat cbc in AM. 12/16/22 0903 <Electronically signed by Geneva Velasco CNM> Cosigner Signature (if applicable): CC: ~ Signed [facility] Work Phone: 1(447) 777-749010-15-2023 Discharge summary Author Allison De Souza [facility] December 15, 2022 6:42pm Note Date/Time December 15, 2022 6 :42pm [facility] Medical Records Department [address] [place] [address] Instructions for Home/Discharge Instructions 12/15/22 1842 MR#: [id number] Acct: [id number] Name: LINDSEY MCKEON Rep #:[id number] : 1990 32 From: Allison Ross DO PCP: Care Physician,No Primary Status :ADM IN Discharge Instructions Diet Discharge Diet: No restrictions Activity Discharge Activity: Return to Normal Activity, May Not Drive (while taking narcotic pain medications.) and May Shower May resume sexual activity in: 4-6 weeks Dressing / Incision Call your doctor if your incision/area has: Continuous Slow Oozing, Sudden Increased Bleeding, Increased Pain/ Swelling, Increased Redness and Foul Smelling Discharge Follow Up Care Please Follow Up With: Allison Ross DO When: Call [phone] to make an appointment with your doctor in 6 weeks. If you had elevated blood pressure or 4th degree laceration, you will need to be seen in 2 weeks. Test Results: Test results from this visit will be discussed in further detail at your follow- up appointment, if applicable. Discharge Plan Admission Admit Date/Time: 12/15/22 05:05 Attending Provider: Allison oRss Primary Care Provider: [place] PhysicianKathy Primary Discharge Orders/Prescriptions Prescriptions: No Action prenat.vits,rodríguez,sbt-gvif-cltho Tablet 1 tab PO DAILY vitamin E 100 unit/0.25 mL drops PO .once day Referrals / Follow Up: Care Physician,Kathy Primary [Primary Care Provider] - 12/15/22 1842<Electronically signed by Allison Ross DO>Allison Ross DO CC: No Primary Care Physician ~ Signed [facility] Work Phone: [phone]) 229-581010-15-2023 Progress note Author Gabrielle Garcia [facility] December 15, 2022 6:30pm Note Date/Time December 15, 2022 6 :26pm [facility] Medical Records Department [address] [place] [address] Progress Note 12/15/22 1820 MR#: [id number] Acct: [id number] Name: LINDSEY MCKEON Rep #:[id number] : 1990 32 From: Gabrielle Garcia CNM PCP: Care Physician,No Primary Status :ADM IN Location: [place] [address] Progress Note comfortable with epidural current tracing: FHT: Moderate variability reactive no decelerations category I tracing [place]: [] Contractions Membranes: SVE:10/100/+2- pushing at 1617 reviewed tracing abnormalities since last note: at 1655 variables after pushing and 1717 dr Beltre noted of decels, pitocin turned off and O2 on. She is on her way hospital to assess for kiwi delivery A/P: Continue with position changes Titrate pitocin per protocol Epidural per anesthesia Anticipate Dr Beltre aware of plan and agrees with plan of care Assessment & Plan Assessment/Plan (1) Active labor at term: (2) Rupture of membranes with clear amniotic fluid: (3) Anemia affecting : (4) Supervision of high risk , antepartum: (5) : QUALIFIERS: Weeks of gestation: 39 weeks Qualified Code(s): Z3A.39 - 39 weeks gestation of Multi Select Codes Urinary/Genital Urinary/Genital CPT Codes: No Charge 12/15/22 1830 <Electronically signed by Gabrielle Garcia CNM> Gabrielle Garcia CNM Cosigner Signature (if applicable): CC: ~ Signed [facility] Work Phone: [phone]) 185-689510-15-2023 Procedure [facility] 12-15-2022 Progress note Author Gabrielle Garcia [facility] December 15, 2022 2:50pm Note Date/Time December 15, 2022 2 :50pm [facility] Medical Records Department [address] [place] [address] Progress Note 12/15/22 1447 MR#: [id number] Acct: [id number] Name: LINDSEY MCKEON Rep #:[id number] : 1990 32 From: Gabrielle Garcia CNM PCP: Care Physician,No Primary Status :ADM IN Location: [place] [address] Progress Note comfortable with epidural current tracing: FHT: 130 Moderate variability reactive no decelerations category I tracing [place]: 2-5 Contractions Membranes: ruptured SVE: 9/95/0 A/P: Continue with position changes Start and Titrate pitocin per protocol Epidural per anesthesia Anticipate Dr Beltre aware of plan and agrees with plan of care Assessment & Plan Assessment/Plan (1) Active labor at term: (2) Rupture of membranes with clear amniotic fluid: (3) Anemia affecting : (4) Supervision of high risk , antepartum: (5) : QUALIFIERS: Weeks of gestation: 39 weeks Qualified Code(s): Z3A.39 - 39 weeks gestation of Multi Select Codes Urinary/Genital Urinary/Genital CPT Codes: No Charge 12/15/22 1450 <Electronically signed by Gabrielle Garcia CNM> Gabrielle Garcia CNM Cosigner Signature (if applicable): CC: ~ Signed [facility] Work Phone: [phone]) [phone] Progress note Author Gabrielle Garcia [facility] December 15, 2022 12:10pm Note Date/Time December 15, 2022 1 2:10pm [facility] Medical Records Department [address] [place] [address] Progress Note 12/15/22 1208 MR#: [id number] Acct: [id number] Name: LINDSEY MCKEON Rep #:[id number] : 1990 32 From: Gabrielle Garcia CNM PCP: Care Physician,No Primary Status :ADM [facility] Note comfortable with epidural current tracing: FHT: 145 Moderate variability reactive no decelerations category I tracing [place]: 3-4 minutes Contractions Membranes: ruptured-see previous note SVE: 0 reviewed tracing abnormalities since last note: A/P: Continue with position changes Re check SVE exam in 2 hours and if no change start pitocin Titrate pitocin per protocol Epidural per anesthesia Anticipate Dr Beltre aware of plan and agrees with plan of care Assessment & Plan Assessment/Plan (1) Active labor at term: (2) Rupture of membranes with clear amniotic fluid: (3) Anemia affecting : (4) Supervision of high risk , antepartum: (5) : QUALIFIERS: Weeks of gestation: 39 weeks Qualified Code(s): Z3A.39 - 39 weeks gestation of Multi Select Codes Urinary/Genital Urinary/Genital CPT Codes: No Charge 12/15/22 1210 <Electronically signed by Gabrielle Garcia CNM> Gabrielle Garcia CNM Cosigner Signature (if applicable): CC: ~ Signed [facility] Work Phone: [phone]) 175-386310-15-2023 Progress note Author Gabrielle Garcia [facility] December 15, 2022 9:11am Note Date/Time December 15, 2022 9 :11am [facility] Medical Records Department [address] [place] [id number] Progress Note 12/15/22 0909 MR#: [id number] Acct: [id number] Name: LINDSEY MCKEON R Rep #:[id number] : 1990 32 From: Gabrielle Garcia CNM PCP: Care Physician,No Primary Status :ADM IN [facility] Progress Note coping well with contractions current tracing: FHT: 150 Moderate variability reactive no decelerations category I tracing [place]: 2-3 minute Contractions Membranes: ruptured at 115, forebag ruptured at 0900 for clear fluid SVE: 6-7/90/-1 reviewed tracing abnormalities since last note: A/P: Continue with position changes Pitocin per protocol if needed Anticipate Dr Beltre aware of plan and agrees with plan of care Assessment & Plan Assessment/Plan (1) Active labor at term: (2) Rupture of membranes with clear amniotic fluid: (3) Anemia affecting : (4) Supervision of high risk , antepartum: (5) : QUALIFIERS: Weeks of gestation: 39 weeks Qualified Code(s): Z3A.39 - 39 weeks gestation of Multi Select Codes Urinary/Genital Urinary/Genital CPT Codes: No Charge 12/15/22 0911 <Electronically signed by Gabrielle Garcia CNM> Gabrielle Garcia CNM Cosigner Signature (if applicable): CC: ~ Signed [facility] Work Phone: 1(915) 365-575310-15-2023 History and physical note Author Gabrielle Garcia [facility] December 15, 2022 6:37am Note Date/Time December 15, 2022 6 :37am [facility] Medical Records Department [address] [place] [address] 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 Contractions becoming stronger and more regular. Maternal Data Information PETER Calculator Estimated Delivery Date Method Current WG Current Estimate 12/17/22 LMP (Certain) 39w 5d Other Estimates 12/13/22 Ultrasound #1 40w 2d Final PETER: 12/17/22 Final PETER Source: US >20 weeks Gestational age: 39.5 PFSH PFSH Home Medications prenat.vits,rodríguez,uwm-jkyu-mggaa 1 tab PO DAILY 05/03/22 [History Last Taken 12/13/22] vitamin E 100 unit/0.25 mL oral drops unit PO .once day 12/15/22 [History Last Taken Unknown] Allergy/AdvReac Type Severity Reaction Status Date / Time No Known Allergies Allergy Verified 12/15/22 05:21 Family History Father Extra digits Mother Seizures Grandfather Cancer prostate Surgical History History of adenoidectomy Social History household members: spouse housing: house current occupational status: employed 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 current occupational exposures/hazards: No pets and animals: No history of recent travel: No sexually active: Yes Smoking Status: Former smoker alcohol intake: never substance use type: does not use well-balanced diet: daily or most days caffeine: No eating out: rarely or never seatbelt use: always do you feel safe at home: Yes additional social history: Spouse: Edward History 1 Elective abortions Hx Para 0 Spontaneous abortions Hx # Term Pregnancies Ectopic pregnancies Hx # Pregnancies Multiple births # of living children Visit Details Expected Delivery Route/Plan delivery by 41 weeks Labor Preferences- CB/BF classes: Discussed and did labor support person: Edward labor intervention preferences: min interventions hydrotherapy, open to touch and massage, guided breathing pain management options preferred: prefers no epidural but open if medically necessary cut cord/dad catch: yes cord only : Yes PP control planned: [] discussed possible routes of delivery and associated risks: [] special requests: [] Plans Covid status: declines Flu vaccine: declines Tdap vaccine: declines Rhogam: NA LARC form signed: completed movement and labor precautions reviewed. Problem list reviewed and updated with the most current plan of care details and appropriate orders placed. Relevant counseling for the gestational age provided. Continue routine care and follow up unless otherwise noted in visit notes/problem list details OB Flowsheet Initial Weight: Not Recorded Date -?-?-?-?-?-?-?-?-?-?-?-?- EGA Weight BP Urine Prot -?-?-?-?-?-?-?-?-?-?-?-?- Glucose FHR FuHt Pres Dilation -?-?-?-?-?-?-?-?-?-?-?-?- Effaced St Visit Note 05/09/22 -?-?-?-?-?-?-?-?-?-?-?-?- 8w 2d 147 lb 4 oz 108/60 -?-?-?-?-?-?-?-?-?-?-?-?- 180 -?-?-?-?-?-?-?-?-?-?-?-?- JV- single live IUP measuring 8 weeks 6 days and consistent with LMP. Pt desires NIPT and carrier test. 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 06/07/22 -?-?-?-?-?-?-?-?-?-?-?-?- 12w 3d 150 lb 8 oz 94/55 Nega tive -?-?-?-?-?-?-?-?-?-?-?-?- Negative 175 -?-?-?-?-?-?-?-?-?-?-?-?- KW- Denies cramp ing. 07/05/22 -?-?-?-?-?-?-?-?-?-?-?-?- 16w 3d 158 lb 96/63 Negative -?-?-?-?-?-?-?-?-?-?-?-?- Negative 157 -?-?-?-?-?-?-?-?-?-?-?-?- JV- no lof, vagi nal bleeding, or cramping. Still working out but scaling back on weight.s anatomy us scheduled for 07/2508/02/22 -?-?-?-?-?-?-?-?-?-?-?-?- 20w 3d 159 lb 6 oz 100/59 Nega tive -?-?-?-?-?-?-?-?-?-?-?-?- Negative 149 -?-?-?-?-?-?-?-?-?-?-?-?- JV- + fm. no scrapper mping or spotting. normal anatomy scan. 08/30/22 -?-?-?-?-?-?-?-?-?-?-?-?- 24w 3d 164 lb 6 oz 103/59 Nega tive -?-?-?-?-?-?-?-?-?-?-?-?- Negative 140 24 -?-?-?-?-?-?-?-?-?-?-?-?- LC- no lof/vb/ct x. good fm. 28 week labs ordered. 09/27/22 -?-?-?-?-?-?-?-?-?-?-?-?- 28w 3d 170 lb 4 oz 96/68 Nega tive -?-?--?-?-?-?-?-?-?-?-?-?- Negative 138 28 -?-?-?-?-?-?-?-?-?-?-?-?- LC-no lof/ctx/vb . good fm. larc signed. declines tdap. 10/11/22 -?-?-?-?-?-?-?-?-?-?-?-?- 30w 3d 172 lb 108/61 Negative -?-?-?-?-?-?-?-?-?-?-?-?- Negative 140 30 Cephalic -?-?-?-?-?-?-?-?-?-?-?-?- SM- no vb lof go od fm no regular ctx 10/25/22 -?-?-?-?-?-?-?-?-?-?-?-?- 32w 3d 173 lb 105/67 Negative -?-?-?-?-?-?-?-?-?-?-?-?- Negative 134 32 -?-?-?-?-?-?-?-?-?-?-?-?- LC- no vb/ctx/vb . good fm. obtaining cbc today, on iron supplementation. signing up for CBE classes. 11/08/22 -?-?-?-?-?-?-?-?-?-?-?-?- 34w 3d 176 lb 108/64 Negative -?-?-?-?-?-?-?-?-?-?-?-?- Negative 138 34 -?-?-?-?-?-?-?-?-?-?-?-?- LC- no vb/ctx/lo f. good fm. labor precautions reviewed. 11/22/22 -?-?-?-?-?-?-?-?-?-?-?-?- 36w 3d 178 lb 6 oz 102/62 Nega tive -?-?-?-?-?-?-?-?-?-?-?-?- Negative 140 36 Cephalic 1 -?-?-?-?-?-?-?-?-?-?-?-?- 50 -3 JV- no lof , vaginal bleeding, or dec fm. gbs collected. labor precautions discussed. 11/29/22 -?-?-?-?-?-?-?-?-?-?-?-?- 37w 3d 182 lb 6 oz 102/62 Nega tive -?-?-?-?-?-?-?-?-?-?-?-?- Negative 135 36 Cephalic -?-?-?-?-?-?-?-?-?-?-?-?- SM- no vb lof go od fm no regular ctx discussed preferences 12/06/22 -?-?-?-?-?-?-?-?-?-?-?-?- 38w 3d 184 lb 2 oz 100/62 Nega tive -?-?-?-?-?-?-?-?-?-?-?-?- Negative 140 38 Cephalic 2 -?-?-?-?-?-?-?-?-?-?-?-?- 60 -2 kw-no vb/l of/regular ctx. good fm. labor precautions. 12/12/22 -?-?-?-?-?-?-?-?-?-?-?-?- 39w 2d 186 lb 4 oz 90/62 Nega tive -?-?-?-?-?-?-?-?-?-?-?-?- Negative 125 39 Cephalic 1 .5 -?-?-?-?-?-?-?-?-?-?-?-?- 70 -1 Sm- no vb lof good fm n oregular ctx NST FHR Rate Baby B Baseline: 145 Variability:: Moderate Accelerations:: 15 x 15 Decelerations:: None NST Reactive:: Yes FHR Category:: Category I Uterine Activity:: 4-6 minutes ROS Constitutional Constitutional: Denies change in weight, fatigue, fever(s), headache(s), poor appetite or weakness Eyes Eyes: Denies blurry vision, change in vision, floaters, seeing flashes or spots in vision ENT HEENT: Denies dizziness, headache(s), loss taste/smell or sore throat Cardiovascular Cardiovascular: Denies chest pain, dizziness, dyspnea, irregular heart rhythm, lightheadedness, palpitations or rapid heart rate Respiratory/Chest Respiratory/Chest: Denies change in mental status, chest tightness, cough, dyspnea or breast pain Gastrointestinal Gastrointestinal: Denies anorexia, chewing difficulty, constipation, diarrhea or weight changes Genitourinary Genitourinary: Denies difficulty urinating, dysuria, flank pain, genital pain, urinary frequency or urinary urgency Musculoskeletal Musculoskeletal: Denies back pain, difficulty walking, extremity pain, joint pain, muscle cramps or muscle weakness Integumentary Integumentary: Denies lesions or unusual bruising Neurologic Neurologic: Denies abnormal movements, abnormal speech, dizziness, numbness, seizure-like activity, syncope or weakness Psychiatric Psychiatric: Denies behavioral changes, change in appetite, confusion, depression, homicidal ideation, suicidal ideation or suicidal thoughts Endocrine Endocrinology: Denies excessive sweating, polydipsia or polyuria Hematologic/Lymphatic Hematologic/Lymphatic: Denies anemia Allergic/Immunologic Allergic/Immunologic: Denies itchy eyes, lip swelling, throat swelling, tongue swelling or wheezing Vital Signs Vital Signs Vital Signs: 12/15/22 04:31 12/15/22 04:31 12/15/22 06:15 Temperature 97.1 F L Temperature Source Temporal Pulse Rate Blood Pressure 113/68 BP Systolic 113 BP Diastolic 68 Pulse Ox 12/15/22 06:15 12/15/22 06:15 12/15/22 06:15 Temperature 98.2 F Temperature Source Pulse Rate 93 Blood Pressure BP Systolic BP Diastolic Pulse Ox 100 Weight Weight: 186 lb Body Mass Index (BMI) 32.9 Physical Exam Const alert, oriented x3 and no apparent distress General Appearance: cooperative Orientation / Consciousness: awake HEENT normocephalic Neck full ROM Lymph Lymphatic: no lymphadenopathy noted Chest inspection of chest normal Resp normal respiratory effort and normal air movement Effort and Inspection: able to speak in complete sentences and symmetric chest movement GI soft to palpation and non-tender Inspection: gravid Palpation: soft; Negative for tender external exam normal Manual OB Exam: estimated gestational size appropriate and presentation cephalic Back/Spine normal to inspection Extremity normal to inspection and full ROM Skin no rashes or lesions noted Psych mental status grossly normal Appearance: grossly normal Speech: normal speech Labs Labs Labs: Blood Type A POSITIVE Antibody Screen NEGATIVE Hct 33.8 % (37-47) L Hgb 11.2 g/dL (12.0-15.0) L Syphilis Total Ab Non-reactive Rubella IgG Antibody Reactive (Nonreactive) Hep Bs Antigen Non-Reactive (Nonreactive) Hepatitis C Antibody Non-Reactive (Nonreactive) Chlamydia DNA ([place]) Negative (Negative) N.gonorrhoeae DNA ([place]) Negative (Negative) HIV 1&2 Antibody Non-Reactive (Nonreactive) Glucose 1 Hr 50 gm 79 mg/dL (70-140) Assessment & Plan (1) Rupture of membranes with clear amniotic fluid: PLAN: Patient presents IAL, plan expectant management for , pitocin/AROM PRN if needed. Pain management: plans no epidural. GBS negative. Management of any complications: none I have reviewed the [facility] and made any clinically relevant updates. (2) Anemia affecting : COMMENT: started on iron supplement. repeat at 32 weeks(improved to 11.7) (3) Supervision of high risk , antepartum: COMMENT: PRR PETER 12/17/22 girl (secret name)Spouse: Edward GBS neg (4) : QUALIFIERS: Weeks of gestation: 39 weeks Qualified Code(s): Z3A.39 - 39 weeks gestation of COMMENT: GBS Negative, NIPT low risk, carrier neg. 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 FOB to be tested, nl anatomy Charges/Coding Multi Select Codes Urinary/Genital Urinary/Genital CPT Codes: No Charge 12/15/22 0637 <Electronically signed by Gabrielle Garcia CNM> Cosigner Signature (if applicable): CC: SAULO Garcia; No Primary Care Physician~ Signed [facility] Work Phone: [phone]) [phone] NotePap Smear Specimen AdequacyMarch 2022 4:49pmComment.Satisfactory for evaluation. No endocervical component is identified.An endocervical component is not commonly seen in the patient.[facility]ACED A#[id number] Hospital CompanyComment on above: Satisfactory for evaluation. No endocervical component is identified.An endocervical component is not commonly seen in the patient.Evaluation note* Diagnosis Onset Date Resolution Status acute Supervision of high risk , antepartum acute [facility] Work Phone: evaluation note* Diagnosis Onset Date Resolution Status acute Supervision of high risk , antepartum acute acute Supervision of high risk , antepartum acute acute Supervision of high risk , antepartum acute acute Supervision of high risk , antepartum acute acute Supervision of high risk , antepartum acute [facility] Work Phone: evaluation note* Diagnosis Onset Date Resolution Status acute Supervision of high risk , antepartum acute acute Supervision of high risk , antepartum acute acute Supervision of high risk , antepartum acute acute Supervision of high risk , antepartum acute Anemia affecting a cute acute Supervision of high risk , antepartum acute Anemia affecting a cute acute Supervision of high risk , antepartum acute [facility] Work Phone: evaluwmejw note* Diagnosis Onset Date Resolution Status acute Supervision of high risk , antepartum acute acute Supervision of high risk , antepartum acute acute Supervision of high risk , antepartum acute Anemia affecting a cute acute Supervision of high risk , antepartum acute Anemia affecting a cute acute Supervision of high risk , antepartum acute Anemia affecting a cute acute Supervision of high risk , antepartum acute Anemia affecting a cute acute Supervision of high risk , antepartum acute [facility] Work Phone: evaluation note* Diagnosis Onset Date Resolution Status acute Supervision of high risk , antepartum acute acute Supervision of high risk , antepartum acute Anemia affecting a cute acute Supervision of high risk , antepartum acute Anemia affecting a cute acute Supervision of high risk , antepartum acute Anemia affecting a cute acute Supervision of high risk , antepartum acute Anemia affecting a cute acute Supervision of high risk , antepartum acute Anemia affecting a cute acute Supervision of high risk , antepartum acute Anemia affecting a cute acute Supervision of high risk , antepartum acute Anemia affecting a cute acute Supervision of high risk , antepartum acute [facility] Work Phone: Evaluation note* Diagnosis Onset Date Resolution Status acute Supervision of high risk , antepartum acute acute Supervision of high risk , antepartum acute Anemia affecting a cute acute Supervision of high risk , antepartum acute Anemia affecting a cute acute Supervision of high risk , antepartum acute Anemia affecting a cute acute Supervision of high risk , antepartum acute Anemia affecting a cute acute Supervision of high risk , antepartum acute Anemia affecting a cute acute Supervision of high risk , antepartum acute Anemia affecting a cute acute Supervision of high risk , antepartum acute Anemia affecting a cute acute Supervision of high risk , antepartum acute Anemia affecting a cute acute Supervision of high risk , antepartum acute Vaginal discharge during resolved Active labor at term acute Anemia affecting a cute Maternal fever during labor acute acute Rupture of membranes with clear amniotic fluid acute Supervision of high risk , antepartum acute Vacuum extractor delivery, delivered acute [facility] Work Phone: Progress note Author Allison De Souza [facility] Note Date/Time August 11, 2024 11:2 2am [facility] [address] [place] [address], [address] [place] [address] OFFICE VISIT Date of Service: 08/11/24 MR#: [id number] Acct: [id number] Name: LINDSEY MCKEON Olive Rep #: [id number] : 1990 Provider: Dr. Chanel Ross, DO Age/Sex: 34/F [place] [facility] [place]: [place] Intake Vital Signs 06/18/24 13:12 07/16/24 08:43 08/11/24 10:40 Height 5 ft 3 in 5 ft 3 in 5 ft 3 in Weight: 162 lb BMI 28.7 BP 97/61 Intake Visit Reasons: 18 wk ob Mathematical Scientist Required: No Is patient in pain?: No Allergies No Known Allergies Allergy (Verified 08/11/24 10:41) Medications ?Medication ?Instructions ?Recorded ?Confirmed ?Type prenat.vits,rodríguez,kyg-wsep-jqafp 1 tab PO DAILY pregnanc y 05/03/22 08/11/24 History ascorbic acid (vitamin C) 500 mg mg PO 05/22/23 History capsule cholecalciferol (vitamin D3) 25 25 mcg PO DAILY 08/11/24 History mcg (1,000 unit) capsule Last Menstrual Period: 04/14/24 Zika: Zika virus screening: Negative : No PFSH PFSH Medical History Vacuum extractor delivery, delivered Surgical History History of adenoidectomy Family History Father Extra digits extra pinky finger Mother Seizures Grandfather Cancer prostate Sister Extra digits extra toe on each foot Social History adopted: No household members: spouse housing: house 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: No pets and animals: No history of recent travel: No sexually active: Yes Smoking Status: Never smoker alcohol intake: never substance use type: does not use well-balanced diet: daily or most days caffeine: No eating out: rarely or never during the past year weight has: remained stable what type of physical activity do you participate in: walking and other details: home workouts frequency: 3-4 times per week duration: 30-45 minutes/day judi/oriental orthodox: Non-Jew/Independent seatbelt use: always do you feel safe at home: Yes additional social history: Spouse: Edward History 2 Elective abortions Hx Para 1 Spontaneous abortions Hx # Term Pregnancies 1 Ectopic pregnancies Hx # Pregnancies Multiple births # of living children 1 Past Pregnancies Del. Date Name GA/Weeks Outcome Route Bth Weight Gen Labor Lgth Anesthesia Del Nadiratn Provider FOB 12/15/22 Felicitas Breaux 39 live - full term vacuum 7#9oz Female epidural [facility] Steph Leon Delivery Date: 12/15/22 Last Updated by: Madeline Rothman vacuum extraction delivery tachycardia HPI 18 wk ob Details: LINDSEY MCKEON is a 34 year old who presents for routine OB visit. OB Visit PETER Calculator Estimated Delivery Date Method Current WG Current Estimate 01/19/25 LMP (Certain) 17w 0d Other Estimates 01/16/25 Ultrasound #1 17w 3d Expected Delivery Route/Plan Labor Preferences- CB/BF classes: [] labor support person: [] labor intervention preferences: [] pain management options preferred: [] cut cord/dad catch: [] : [] PP control planned: [] discussed possible routes of delivery and associated risks: [] special requests: [] Specific Issue/Plans Covid status: [] Flu vaccine: [] Tdap vaccine: [] Rhogam: [] LARC form signed: [] Problem list reviewed and updated with the most current plan of care details and appropriate orders placed. Relevant counseling for the gestational age provided. Continue routine care and follow up unless otherwise noted in visit notes/problem list details Initial Weight: Not Recorded Date -?-?-?-?-?-?-?-?-?-?-?-?- EGA Weight BP Urine Prot -?-?-?-?-?-?-?-?-?-?-?-?- Glucose FHR FuHt Pres Dilation -?-?-?-?-?-?-?-?-?-?-?-?- Effaced St Visit Note 06/18/24 -?-?-?-?-?-?-?-?-?-?-?-?- 9w 2d 158 lb 4 oz 104/64 -?-?-?-?-?-?-?-?-?-?-?-?- 150 -?-?-?-?-?-?-?-?-?-?-?-?- SM- CRL cons 3 c m 07/16/24 -?-?-?-?-?-?-?-?-?--?-?-?- 13w 2d 161 lb 2 oz 104/65 -?-?-?-?-?-?-?-?-?-?-?-?- 150 -?-?-?-?-?-?-?-?-?-?-?-?- SM- no vb crmapi ng 08/11/24 -?-?-?-?-?-?-?-?-?-?-?-?- 17w 0d 162 lb 97/61 Negative -?-?-?-?-?-?-?-?-?-?-?-?- Negative 140 -?-?-?-?-?-?-?-?-?-?-?-?- JV- no lof, vagi nal bleeding, or cramping. ACOG First Trimester First Trimester: Desire for , Alcohol, Tobacco Cessation, Illicit/Recreational Drug/Substance Use, Intimate Partner Violence, Barriers to care, Unstable Housing, Communication Barriers, Environmental/Work Hazards, Anticipated Course of Care, Toxoplasmosis Precations, Use of Any medications, Sexual activity, Exercise, Dental Care, Sauna/Hot tub use, Seat Belt use, Childbirth classes/Hospital facilities, Travel, Indications for Ultrasound and Screening for Aneuploidy; Discussed Second Trimester Second Trimester: Signs and Symptoms of Labor, Selecting a care provider, Reproductive Life Planning & Contreception, Care Planning, Depression/Anxiety and Intimate Partner Violence; Discussed Tobacco Cessation Third Trimester Third Trimester: Pain Management Plans, Labor support person(s), Immediate Larc, Movement Monitoring, Signs and Symptoms of Preeclampsia, Labor Signs, [place] Education and Depression Results POC Urinalysis 2 Dip (Clinic) Office Urine Glucose Negative Last Edit by Caitlin Marquez on 08/11/24 10: 49 Office Urine Protein Negative Last Edit by Caitlin Marquez on 08/11/24 10: 49 Coding Level of Care Code OB Routine Diagnoses History of vacuum extraction assisted delivery Z87.59 Supervision of high-risk O09.90 17 weeks gestation of Z3A.17 Weeks of gestation: 17 weeks Advanced maternal age (AMA) in Assessment and Plan Assessment and Plan (1) History of vacuum extraction assisted delivery: Status: Acute Comment: tachycardia (2) Supervision of high-risk : Status: Acute Comment: , PETER 01/19/25, PC Felicitas White, Edward (3) : Status: Acute Qualifiers: Weeks of gestation: 17 weeks Qualified Code(s): Z3A.17 - 17 weeks gestation of Comment: declined NIPT & Carrier testing (4) Advanced maternal age (AMA) in : Status: Acute Comment: genetic counseling, declined screening. plan growth US at 36 weeks. Orders: Orders POC Urinalysis 2 Dip (Clinic) Today 08/11/24 1122 <Electronically signed by Allison Bolivar DO> Date _ Allison Ross DO Cosigner Signature: Date (if applicable) CC: ~ [facility] Work Phone: Reason for referral (narrative)No reason for referral information availableWRegency Hospital Company Work Phone: Chief Complaint and Reason for Visit Chief Complaint NOB LMP 03/12 Reason for Visit Supervision of high risk , antepartum Chief Complaint 12 WK OB 16 WK OB 20 WK OB 24 WK OB 28 WK OB/GLUCOSE GLUCOUS Reason for Visit Supervision of high risk , antepartum Supervision of high risk , antepartum Supervision of high risk , antepartum Supervision of high risk , antepartum Supervision of high risk , antepartum Chief Complaint 16 WK OB 20 WK OB 24 WK OB 28 WK OB/GLUCOSE GLUCOUS 30 WK OB 32 WK OB Reason for Visit Supervision of high risk , antepartum Supervision of high risk , antepartum Supervision of high risk , antepartum Supervision of high risk , antepartum Anemia affecting Supervision of high risk , antepartum Anemia affecting Supervision of high risk , antepartum Chief Complaint 20 WK OB 24 WK OB 28 WK OB/GLUCOSE GLUCOUS 30 WK OB 32 WK OB 34 WK OB 36 WK OB Reason for Visit Supervision of high risk , antepartum Supervision of high risk , antepartum Supervision of high risk , antepartum Anemia affecting Supervision of high risk , antepartum Anemia affecting Supervision of high risk , antepartum Anemia affecting Supervision of high risk , antepartum Anemia affecting Supervision of high risk , antepartum Chief Complaint 24 WK OB 28 WK OB/GLUCOSE GLUCOUS 30 WK OB 32 WK OB 34 WK OB 36 WK OB 37 WK OB 38 WK OB 39 WK OB R/O LABOR Reason for Visit Supervision of high risk , antepartum Supervision of high risk , antepartum Anemia affecting Supervision of high risk , antepartum Anemia affecting Supervision of high risk , antepartum Anemia affecting Supervision of high risk , antepartum Anemia affecting Supervision of high risk , antepartum Anemia affecting Supervision of high risk , antepartum Anemia affecting Supervision of high risk , antepartum Anemia affecting Supervision of high risk , antepartum Chief Complaint 24 WK OB 28 WK OB/GLUCOSE GLUCOUS 30 WK OB 32 WK OB 34 WK OB 36 WK OB 37 WK OB 38 WK OB 39 WK OB R/O LABOR VAG R/O LABOR VAG VAG Reason for Visit Supervision of high risk , antepartum Supervision of high risk , antepartum Anemia affecting Supervision of high risk , antepartum Anemia affecting Supervision of high risk , antepartum Anemia affecting Supervision of high risk , antepartum Anemia affecting Supervision of high risk , antepartum Anemia affecting Supervision of high risk , antepartum Anemia affecting Supervision of high risk , antepartum Anemia affecting Supervision of high risk , antepartum Anemia affecting Supervision of high risk , antepartum Vaginal discharge during Active labor at term Anemia affecting Maternal fever during labor Rupture of membranes with clear amniotic fluid Supervision of high risk , antepartum Vacuum extractor delivery, delivered Chief Complaint Admit Date New OB, LMP 04/14, PETER 01/19June 18, 2024 1:03pm Reason for Visit Admit Date Advanced maternal age (AMA) in June 18, 2024 1:03pm History of vacuum extraction assisted de livery June 18, 2024 1:03pm June 18, 2024 1:0 3pm Supervision of high-risk June 18, 2024 1:03pm Chief Complaint Admit Date New OB, LMP 2/12, PETER 01/19June 18, 2024 1:03pm 13wk OB July 16, 2024 8:34a m Reason for Visit Admit Date Advanced maternal age (AMA) in June 18, 2024 1:03pm History of vacuum extraction assisted de livery June 18, 2024 1:03pm June 18, 2024 1:0 3pm Supervision of high-risk June 18, 2024 1:03pm Advanced maternal age (AMA) in July 16, 2024 8:34am History of vacuum extraction assisted de livery July 16, 2024 8:34am July 16, 2024 8:34a m Supervision of high-risk July 012024 8:34am Chief Complaint Admit Date New OB, LMP 2/12, PETER 01/19June 18, 2024 1:03pm 13wk OB July 16, 2024 8:34a m 18 wk ob August 11, 2024 10:3 5am Reason for Visit Admit Date Advanced maternal age (AMA) in June 18, 2024 1:03pm History of vacuum extraction assisted de livery June 18, 2024 1:03pm June 18, 2024 1:0 3pm Supervision of high-risk June 18, 2024 1:03pm Advanced maternal age (AMA) in July 16, 2024 8:34am History of vacuum extraction assisted de livery July 16, 2024 8:34am July 16, 2024 8:34a m Supervision of high-risk July 012024 8:34am Advanced maternal age (AMA) in August 11, 2024 10:35am History of vacuum extraction assisted de livery August 11, 2024 10:35am August 11, 2024 10:3 5am Supervision of high-risk August 11, 2024 10:35am Chief Complaint Admit Date New OB, LMP 2/12, PETER 01/19June 18, 2024 1:03pm 13wk OB July 16, 2024 8:34a m 18 wk ob August 11, 2024 10:3 5am vag bleed preg August 30, 2024 4:24 pm Chief Complaint Admit Date New OB, LMP /, PETER 01/19June 18, 2024 1:03pm 13wk OB July 16, 2024 8:34a m 18 wk ob August 11, 2024 10:3 5am vag bleed preg August 30, 2024 4:24 pm 21wk ob September 06, 2024 2:17p m Reason for Visit Admit Date Advanced maternal age (AMA) in June 18, 2024 1:03pm History of vacuum extraction assisted de livery June 18, 2024 1:03pm June 18, 2024 1:0 3pm Supervision of high-risk June 18, 2024 1:03pm Advanced maternal age (AMA) in July 16, 2024 8:34am History of vacuum extraction assisted de livery July 16, 2024 8:34am July 16, 2024 8:34a m Supervision of high-risk July 012024 8:34am Advanced maternal age (AMA) in August 11, 2024 10:35am History of vacuum extraction assisted de livery August 11, 2024 10:35am August 11, 2024 10:3 5am Supervision of high-risk August 11, 2024 10:35am Advanced maternal age (AMA) in September 06, 2024 2:17pm History of vacuum extraction assisted de livery September 06, 2024 2:17pm Placenta previa September 06, 2024 2:17p m September 06, 2024 2:17p m Supervision of high-risk September 06, 2024 2:17pm Vaginal bleeding September 06, 2024 2:17p m Family History No Family History Records Found Relationship Condition Age at Onset Recorded Date/T armida father Polydactyly Unknown mother Seizure Unknown grandfather Malignant neoplasm Unknown Relationship Condition Age at Onset Recorded Date/T armida father Polydactyly Unknown mother Seizure Unknown grandfather Malignant neoplasm Unknown sister Polydactyly Unknown Advance Directives No Advanced Directives Records Found Advance Directive Response Recorded Date/ Time Living Will No December 15 5:33am Power of High Worker No December 15, 2022 5:33am Advance Directive Response Recorded Date/ Time Do you have a Healthcare Power of High Worker? No August 30, 2024 6:15pm Summary Purpose Additional Source Comments Care Teams (unrecognized sec tion and content) Team Status: Active Member Role Status Dates No Primary Care Physician Primary Care Provider Active Team Status: Inactive Member Role Status Dates No Primary Care Physician Primary Care Provider, Refer ring Provider Active Dr. Allison Ross DO Attending Provider Activ e Team Status: Inactive Member Role Status Dates No Primary Care Physician Primary Care Provider Active Dr. Allison Ross DO Attending Provider, Refe rring Provider Active Team Status: Inactive Member Role Status Dates No Primary Care Physician Primary Care Provider, Refer ring Provider Active Gabrielle Garcia CNM Attending Provider Active Team Status: Inactive Member Role Status Dates No Primary Care Physician Primary Care Provider, Refer ring Provider Active Geneva Velasco CNM Attending Provider Active Team Status: Inactive Member Role Status Dates No Primary Care Physician Primary Care Provider Active Dr. Connie Talavera MD Attending Provider Active Team Status: Inactive Member Role Status Dates No Primary Care Physician Primary Care Provider, Refer ring Provider Active Dr. Connie Talavera MD Attending Provider Active Team Status: Inactive Member Role Status Dates No Primary Care Physician Primary Care Provider Active Geneva Velasco CNM Attending Provider, Referring Pr ovider Active Team Status: Inactive Member Role Status Dates No Primary Care Physician Primary Care Provider Active Gabrielle Garcia CNM Attending Provider, Referring Pro vider Active Team Status: Active Member Role Status Dates No Primary Care Physician Primary Care Provider Active Gabrielle Garcia CNM Attending Provider, Referring Provider, Other Provider Active Team Status: Active Member Role Status Dates No Primary Care Physician Primary Care Provider Active Dr. Allison Ross DO Admit Provider, Other Pr ovider Active Geneva Velasco CNM Attending Provider Active Team Status: Active Member Role Status Dates No Primary Care Physician Primary Care Provider Active Dr. Allison Ross DO Admit Provider, Other Pr ovider Active Gabrielle Garcia CNM Attending Provider Active Team Status: Inactive Member Role Status Dates No Primary Care Physician Primary Care Provider Active Dr. Allison Ross DO Admit Provider, Attendin g Provider Active Team Status: Inactive Member Role Status Dates No Primary Care Physician Primary Care Provider Active Start: June 18, 2024 End: June 18, 2024 No Primary Care Physician Referring Provider Active Start: June 18, 2024 End: June 18, 2024 Dr. Connie Talavera MD Attending Provider Active Start: June 18, 2024 End: June 18, 2024 Team Status: Inactive Member Role Status Dates No Primary Care Physician Primary Care Provider Active Start: June 18, 2024 End: June 18, 2024 Dr. Connie Talavera MD Attending Provider Active Start: June 18, 2024 End: June 18, 2024 Dr. Connie Talavera MD Referring Provider Active Start: June 18, 2024 End: June 18, 2024 Team Status: Inactive Member Role Status Dates No Primary Care Physician Primary Care Provider Active Start: July 16, 2024 End: July 16, 2024 No Primary Care Physician Referring Provider Active Start: July 16, 2024 End: July 16, 2024 Dr. Connie Talavera MD Attending Provider Active Start: July 16, 2024 End: July 16, 2024 Team Status: Inactive Member Role Status Dates No Primary Care Physician Primary Care Provider Active Start: August 11, 2024 End: August 11, 2024 No Primary Care Physician Referring Provider Active Start: August 11, 2024 End: August 11, 2024 Dr. Allison Ross DO Attending Provider Activ e Start: August 11, 2024 End: August 11, 2024 Team Status: Active Member Role/Relationship Status Dates No Primary Care Physician Primary Care Provider Active Team Status: Inactive Member Role/Relationship Status Dates No Primary Care Physician Primary Care Provider Active Start: June 18, 2024 End: June 18, 2024 No Primary Care Physician Referring Provider Active Start: June 18, 2024 End: June 18, 2024 Dr. Connie Talavera MD Attending Provider Active Start: June 18, 2024 End: June 18, 2024 Team Status: Inactive Member Role/Relationship Status Dates No Primary Care Physician Primary Care Provider Active Start: June 18, 2024 End: June 18, 2024 Dr. Connie Talavera MD Attending Provider Active Start: June 18, 2024 End: June 18, 2024 Dr. Connie Talavera MD Referring Provider Active Start: June 18, 2024 End: June 18, 2024 Team Status: Inactive Member Role/Relationship Status Dates No Primary Care Physician Primary Care Provider Active Start: July 16, 2024 End: July 16, 2024 No Primary Care Physician Referring Provider Active Start: July 16, 2024 End: July 16, 2024 Dr. Connie Talavera MD Attending Provider Active Start: July 16, 2024 End: July 16, 2024 Team Status: Inactive Member Role/Relationship Status Dates No Primary Care Physician Primary Care Provider Active Start: August 11, 2024 End: August 11, 2024 No Primary Care Physician Referring Provider Active Start: August 11, 2024 End: August 11, 2024 Dr. Allison Ross DO Attending Provider Activ e Start: August 11, 2024 End: August 11, 2024 Team Status: Inactive Member Role/Relationship Status Dates No Primary Care Physician Primary Care Provider Active Start: August 30, 2024 End: August 30, 2024 Dr. Champ Wells DO Emergency Provider Active Start: August 30, 2024 End: August 30, 2024 Team Status: Inactive Member Role/Relationship Status Dates No Primary Care Physician Primary Care Provider Active Start: August 30, 2024 End: August 30, 2024 Dr. Champ Wells DO Attending Provider Active Start: August 30, 2024 End: August 30, 2024 Dr. Champ Wells DO Emergency Provider Active Start: August 30, 2024 End: August 30, 2024 Team Status: Inactive Member Role/Relationship Status Dates No Primary Care Physician Primary Care Provider Active Start: September 06, 2024 End: September 06, 2024 No Primary Care Physician Referring Provider Active Start: September 06, 2024 End: September 06, 2024 Gabrielle Garcia CNM Attending Provider Active S tart: September 06, 2024 End: September 06, 2024 Goals (unrecognized section and content) Goals may be documented in a n alternate sectionGoals may be documented in an alternate sectionGoals may be documented in an alternate sectionGoals may be documented in an alternate sectionGoals may be documented in an alternate sectionGoals may be documented in an alternate sectionGoals may be documented in an alternate sectionGoals may be documented in an alternate sectionGoals may be documented in an alternate sectionGoals may be documented in an alternate sectionGoals may be documented in an alternate section INFORMATION SOURCE (unrecogn ized section and content) DATE CREATED AUTHOR 09/03/2024 [facility] DATE CREATED AUTHOR AUTHOR'S JAI TORRES 09/10/2024 [facility] FOR RECORDS PERTAINING TO PATIENTS WHO ARE OR HAVE BEEN ENROLLED IN A CHEMICAL DEPENDENCY/SUBSTANCEABUSE PROGRAM, SOME INFORMATION MAY BE OMITTED. This clinical summary was aggregated from multiple sources. Caution should be exercised in using it in the provision of clinical care. This summary normalizes information from multiple sources, and as a consequence, information in this document may materially change the coding, format and clinical context of patient data. In addition, data may be omitted in some cases. CLINICAL DECISIONS SHOULD BE BASED ON THE PRIMARY CLINICAL RECORDS. [employer] [facility]. provides no warranty or guarantee of the accuracy or completeness of information in this document.
--- NOTE | 2024-09-17 07:49 | US_ITS ---
EXAM: US First Trimester , Transabdominal and Transvaginal CLINICAL INDICATION: VAGINAL BLEEDING, PLACENTA PREVIA TECHNIQUE: Real-time transabdominal and transvaginal obstetrical ultrasound of the maternal pelvis and a first trimester with image documentation. Transvaginal imaging was used for better evaluation of the fetus and adnexa. COMPARISON: No relevant prior studies available. FINDINGS: GESTATION: Cephalic presentation. age 22 weeks and 5 days. PETER: PETER 01/19/2025. PLACENTA/AMNIOTIC FLUID: Placenta low-lying and posterior. 3.5 cm from the os. UTERUS/CERVIX: Cervical length 2.6 cm. No myometrial mass. US/Transvaginal w/Preg US IMPRESSION: A single intrauterine as above. Reading [facility]
[2024-09-17] MEDS: Lactated Ringers 1,000 ML 999 ML IV (07:55)
[2024-09-17 08:14] LABS: Hematocrit 31.6 % (37-47); Hemoglobin 10.8 g/dL (12.0-15.0); Immature Granulocytes Count 0.210 X10^3/uL (0.0-0.0); Mean Corp Hgb Conc 34.2 g/dL (32-36); Mean Corpuscular Volume 89.8 fL (81-99); Mean Platelet Vol. 9.1 fl (6.2-12.0); NRBC Flagged by Analyzer 0 % (0-5); Platelet Count 220 K/mm3 (150-450); RBC Distribution Width CV 12.7 % (11.6-14.6); RBC Distribution Width SD 41.6 fl (35.1-43.9); Red Blood Count 3.52 M/mm3 (4.2-5.4); White Blood Count 18.8 K/mm3 (4.4-11.0)
[2024-09-17] MEDS: Magnesium Sulfate 4gm/100mL 4 GM/100 ML IV.SOLN. IV (08:18)
[2024-09-17 08:25] LABS: Partial Thromboplast Time 23.9 Seconds (24.1-36.2)
[2024-09-17 08:33] LABS: Prothrombin Time (Protime)PT. 12.8 SECONDS (11.7-14.9)
[2024-09-17] MEDS: Magnesium Sulfate 4gm/100mL 2 GM/50 ML IV.SOLN. IV (08:39)
[2024-09-17] MEDS: Betamethasone/Betamethasone 30 MG/5 ML Vial 12 MG IM (08:44)
[2024-09-17] MEDS: Magnesium Sulfate 20 GM/500 ML BAG IV (08:55)
--- NOTE | 2024-09-17 09:02 | OB.TRI.HP_ITS ---
HPI - General HPI Narrative LINDSEY MCKEON, is a 34 F who presents G2, P1 at 22 weeks and 2 days with vaginal bleeding and irregular contractions. Patient has a history of placenta previa she states that she has had bleeding throughout the last week but had not called in due to thinking that that might be normal. This morning she had lower pelvic pressure and discomfort and intermittent contractions and intermittent bleeding that was worse so she called and then came in. Maternal Data Information PETER Calculator Estimated Delivery Date Method Current WG Current Estimate 01/19/25 LMP (Certain) 22w 6d Other Estimates 01/16/25 Ultrasound #1 23w 2d PFSH PFS Medical History Vacuum extractor delivery, delivered Home Medications ?Medication ?Instructions ?Recorded ?Last Taken ?Type prenat.vits,rodríguez,bfl-gzoo-pjdsn 1 tab PO DAILY pregnanc y 05/03/22 09/16/24 History cholecalciferol (vitamin D3) 25 25 mcg PO DAILY 09/16/24 History mcg (1,000 unit) capsule Allergy/AdvReac Type Severity Reaction Status Date / Time No Known Allergies Allergy Verified 09/17/24 07:30 Family History Father Extra digits extra pinky finger Mother Seizures Grandfather Cancer prostate Sister Extra digits extra toe on each foot Surgical History History of adenoidectomy Social History adopted: No household members: spouse housing: house 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: No pets and animals: No history of recent travel: No sexually active: Yes Smoking Status: Never smoker alcohol intake: never substance use type: does not use well-balanced diet: daily or most days caffeine: No eating out: rarely or never during the past year weight has: remained stable what type of physical activity do you participate in: walking and other details: home workouts frequency: 3-4 times per week duration: 30-45 minutes/day judi/mosque: Non-Hoahaoism/Independent seatbelt use: always do you feel safe at home: Yes additional social history: Spouse: Edward History 2 Elective abortions Hx Para 1 Spontaneous abortions Hx # Term Pregnancies 1 Ectopic pregnancies Hx # Pregnancies Multiple births # of living children 1 Past Pregnancies Del. Date Name GA/Weeks Outcome Route Bth Weight Gen Labor Lgth Anesthesia Del Nadiratn Provider FOB 12/15/22 Felicitas Breaux 39 live - full term vacuum 7#9oz Female epidural [facility] Steph Leon Delivery Date: 12/15/22 Last Updated by: Madeline Rothman vacuum extraction delivery tachycardia Visit Details Expected Delivery Route/Plan Labor Preferences- CB/BF classes: [] labor support person: [] labor intervention preferences: [] pain management options preferred: [] cut cord/dad catch: [] : [] PP control planned: [] discussed possible routes of delivery and associated risks: [] special requests: [] Plans Covid status: [] Flu vaccine: [] Tdap vaccine: [] Rhogam: [] LARC form signed: [] Problem list reviewed and updated with the most current plan of care details and appropriate orders placed. Relevant counseling for the gestational age provided. Continue routine care and follow up unless otherwise noted in visit notes/problem list details OB Flowsheet Initial Weight: Not Recorded Date -?-?-?-?-?-?-?-?-?-?-?-?- EGA Weight BP Urine Prot -?-?-?-?-?-?-?-?-?-?-?-?- Glucose FHR FuHt Pres Dilation -?-?-?-?-?-?-?-?-?-?-?-?- Effaced St Visit Note 06/18/24 -?-?-?-?-?-?-?-?-?-?-?-?- 9w 2d 158 lb 4 oz 104/64 -?-?-?-?-?-?-?-?-?-?-?-?- 150 -?-?-?-?-?-?-?-?-?-?-?-?- SM- CRL cons 3 c m 07/16/24 -?-?-?-?-?-?-?-?-?-?-?-?- 13w 2d 161 lb 2 oz 104/65 -?-?-?-?-?-?-?-?-?-?-?-?- 150 -?-?-?-?-?-?-?-?-?-?-?-?- SM- no vb crmapi ng 08/11/24 -?-?-?-?-?-?-?-?-?-?-?-?- 17w 0d 162 lb 97/61 Negative -?-?-?-?-?-?-?-?-?-?-?-?- Negative 140 -?-?-?-?-?-?-?-?-?-?-?-?- JV- no lof, vagi nal bleeding, or cramping. 09/06/24 -?-?-?-?-?-?-?-?-?-?-?-?- 20w 5d 165 lb 2 oz 105/69 Nega tive -?-?-?-?-?-?-?-?-?-?-?-?- Negative 160 20 -?-?-?-?-?-?-?-?-?-?-?-?- KW- discussed an atomy US which shows complete previa and possible vasa previa. discussed expected plan of care. Has still had intermittent bleeding at times ROS Constitutional Constitutional: Reports systems reviewed and no addt'l complaints, except as documented and as per HPI ENT HEENT: Reports systems reviewed and no addt'l complaints, except as documented Cardiovascular Cardiovascular: Reports systems reviewed and no addt'l complaints, except as documented Respiratory/Chest Respiratory/Chest: Reports systems reviewed and no addt'l complaints, except as documented Gastrointestinal Gastrointestinal: Reports as per HPI Genitourinary Genitourinary: Reports as per HPI Musculoskeletal Musculoskeletal: Reports systems reviewed and no addt'l complaints, except as documented Integumentary Integumentary: Reports systems reviewed and no addt'l complaints, except as documented Neurologic Neurologic: Reports systems reviewed and no addt'l complaints, except as documented Physical Exam Const alert, oriented x3 and no apparent distress HEENT Head and Scalp: normocephalic and atraumatic Neck full ROM and no lymphadenopathy Chest inspection of chest normal Resp normal respiratory effort GI GI Narrative: gravid, abdomen nontender, AGA Manual OB Exam: dilated 4, effaced 60 and station -3 NST FHR Rate Baby A Baseline: 150 Variability:: Moderate Decelerations:: None NST Reactive:: Appropriate for gestational age Uterine Activity:: irregular Assessment & Plan (1) labor: COMMENT: transported to [facility] at 22 weeks 4 cm dilated (2) History of vacuum extraction assisted delivery: COMMENT: tachycardia (3) Supervision of high-risk : COMMENT: , PETER 01/19/25, PC Felicitas White, Edward (4) : QUALIFIERS: Weeks of gestation: 20 weeks Qualified Code(s): Z3A.20 - 20 weeks gestation of COMMENT: declined NIPT & Carrier testing (5) Advanced maternal age (AMA) in : COMMENT: genetic counseling, declined screening. plan growth US at 36 weeks. (6) Vaginal bleeding during : PLAN: Plan Counseling provided to the patient regarding outcomes if is able to be prolonged, bedside ultrasound done with shipwright supervisor present and previa has appeared to resolve with the lower placental edge 3.4 cm away from the cervical os and posterior. No gross placental abnormalities noted fetus is vertex. Patient may choose to not resuscitate if she delivered eminently within the next 1 to 2 weeks however she is requesting transport to give her a chance that latency therefore maternal- medicine called and they will accept transport, they recommended starting magnesium sulfate. 6 g bolus and then 2 g an hour. Called for helicopter transport but due to weather conditions they were unable to take the patient and therefore waiting for ground transport. Patient reexamined immediately prior to ground transport and she was found to be stable and therefore acceptable for transport. Charges/Coding Multi Select Codes Visit Charges Office Visit/Consults: 27135 OV L3 Est 20min
== END 2024-09-17 09:35 | disposition short-term general hospital (02) ==
LOC: WPOUT 06:51 → WP 06:52
PROVIDERS: Referring Provider Obstetrics & Gynecology; Visit Provider Obstetrics & Gynecology
DX: O60.02 Preterm labor without delivery, second trimester (principal); Z3A.23 23 weeks gestation of pregnancy
CPT/HCPCS: 96365; 96366 ×3; 96367; 36415; 59050; 76815; 76817; 85025; 85610; 85730; 86850; 86900; 86901; 96372; 99221; G0378; J0702